=== PATIENT | female | born 1965 | race Caucasian/White ===

== ENCOUNTER 2020-04-01 | Outpatient (REF) | payer OTHER, SELFPAY | END 2020-04-01 00:01 | disposition home or self-care (01) | LOC: HO.LAB | PROVIDERS: Visit Provider Internal Medicine Endocrinology, Diabetes & Metabolism | DX: Z13.89 Encounter for screening for other disorder (principal) ==

== ENCOUNTER 2020-04-01 13:00 | Outpatient (REF) | payer OTHER, SELFPAY ==
[2020-04-01 15:22] LABS: MANUAL DIFF FLAG NO
[2020-04-01 15:32] LABS: Basophils Percent Auto 0.7 % (0-2); Eosinophils Absolute Auto 0.3 X10*3/uL (0.0-0.4); Eosinophils Percent Auto 5.2 % (0-4); Hematocrit 38.8 % (37-47); Hemoglobin 12.6 g/dl (12.0-16.0); Imm Gran Abs Auto 0.02 X10*3/uL (0.00-0.03); Imm Gran Pct Auto 0.3 % (0.0-0.4); Lymphocytes Absolute Auto 1.5 X10*3/uL (1.2-4.9); Lymphocytes Percent Auto 25.8 % (20-40); Mean Corpuscular HGB Conc 32.5 g/dl (31.0-35.0); Mean Corpuscular Hemoglobin 28.7 pg (27.0-33.0); Mean Corpuscular Volume 88.4 fL (80-98); Mean Platelet Volume 10.4 fL (9.4-12.3); Monocytes Absolute Auto 0.5 X10*3/uL (0.1-1.2); Monocytes Percent Auto 7.7 % (2-11); Neutrophils Absolute Auto 3.6 X10*3/uL (2.0-8.3); Neutrophils Percent Auto 60.3 % (45-73); Platelet Count 331 X10*3/uL (160-400); Red Blood Count 4.39 X10*6/uL (4.20-5.50); Red Cell Distribution Width 13.6 % (11.0-16.0)
[2020-04-01 15:57] LABS: Creatinine Urine 77.98 mg/dL; Microalbum/Creatinine Ratio Ur 287.2 ug/mg cr
[2020-04-01 15:59] LABS: Alanine Aminotransferase 20 U/L (0-31); Albumin Level 4.5 g/dL (3.5-5.0); Alkaline Phosphatase 35 U/L (39-117); Anion Gap 13 (12-20); Aspartate Amino Transferase 15 U/L (5-31); Bilirubin Total 0.5 mg/dL (0.0-1.0); Blood Urea Nitrogen 17 mg/dL (9-16); Calcium 9.5 mg/dL (8.4-10.2); Carbon Dioxide 25 mmol/L (22-29); Chloride 107 mmol/L (96-108); Cholesterol 152 mg/dL; Estimated Glomerular Filt Rate 49; Glucose Fasting 71 mg/dL (60-99); HDL Cholesterol 43 mg/dL; LDL Cholesterol Calculated 89 mg/dl; Potassium 4.3 mmol/l (3.3-5.1); Sodium 141 mmol/L (135-145); Total Protein 7.3 g/dL (6.5-8.0); Triglycerides 101 mg/dL
[2020-04-01 16:19] LABS: Vitamin D 25-OH Total 82.8 ng/mL (>30)
[2020-04-01 16:23] LABS: Vitamin B12 267 pg/mL (200-900)
[2020-04-02 22:26] LABS: LDL Cholesterol Direct 94 mg/dL (<100)
== END 2020-04-01 13:01 | disposition home or self-care (01) ==
LOC: HO.HAP 13:00
PROVIDERS: PCP Internal Medicine; Visit Provider Internal Medicine Endocrinology, Diabetes & Metabolism
DX: Z46.1 Encounter for fitting and adjustment of hearing aid (principal); E11.65 Type 2 diabetes mellitus with hyperglycemia
CPT/HCPCS: 36415; 80053; 80061; 82043; 82306; 82607; 83721; 85025; V5266

== ENCOUNTER → 2020-04-10 07:59 | Outpatient (BNVA) | payer OTHER, SELFPAY | PROVIDERS: PCP Internal Medicine; Referring Provider Internal Medicine; Visit Provider Internal Medicine Endocrinology, Diabetes & Metabolism | DX: Z13.89 Encounter for screening for other disorder (principal) | CPT/HCPCS: 99214 ==

== ENCOUNTER 2020-05-14 08:42 | Outpatient (REF) | payer OTHER, SELFPAY ==
[2020-05-14 09:30] LABS: Estimated Average Glucose 117 mg/dL; Hemoglobin A1c % 5.7 %
== END 2020-05-14 08:43 | disposition home or self-care (01) ==
LOC: HO.LAB 08:42
PROVIDERS: PCP Internal Medicine; Visit Provider Internal Medicine Endocrinology, Diabetes & Metabolism
DX: E11.65 Type 2 diabetes mellitus with hyperglycemia (principal); E11.42 Type 2 diabetes mellitus with diabetic polyneuropathy
CPT/HCPCS: 83036

== ENCOUNTER 2020-05-14 09:21 | Outpatient (REF) | payer OTHER, SELFPAY | END 2020-05-14 09:22 | disposition home or self-care (01) | LOC: HO.HAP 09:21 | PROVIDERS: Visit Provider Internal Medicine | DX: Z46.1 Encounter for fitting and adjustment of hearing aid (principal) | CPT/HCPCS: V5266 ==

== ENCOUNTER 2020-06-16 13:35 | Outpatient (REF) | payer OTHER, SELFPAY | END 2020-06-16 13:36 | disposition home or self-care (01) | LOC: HO.HAP 13:35 | PROVIDERS: Visit Provider Internal Medicine | DX: Z46.1 Encounter for fitting and adjustment of hearing aid (principal) | CPT/HCPCS: V5266 ==

== ENCOUNTER 2020-07-09 15:34 | Outpatient (REF) | payer OTHER, SELFPAY | END 2020-07-09 15:35 | disposition home or self-care (01) | LOC: HO.HAP 15:34 | PROVIDERS: Visit Provider Internal Medicine | DX: Z46.1 Encounter for fitting and adjustment of hearing aid (principal) | CPT/HCPCS: V5266 ==

== ENCOUNTER 2020-08-08 13:00 | Outpatient (REF) | payer OTHER, SELFPAY | END 2020-08-08 13:01 | LOC: HO.HAP 13:00 | PROVIDERS: Visit Provider Internal Medicine | DX: Z46.1 Encounter for fitting and adjustment of hearing aid (principal) | CPT/HCPCS: V5266 ==

== ENCOUNTER 2020-08-29 08:30 | Outpatient (REF) | payer OTHER, SELFPAY ==
--- NOTE | 2020-09-02 09:18 | MHC.AU.P13 ---
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 Previous Hearing Test Results: 07/17/2019 [facility] Right Ear - Normal hearing thresholds at 250-1000 Hz sloping to a moderate high frequency sensorineural hearing loss with 96% speech understanding. Left Ear - Profound rising to severe mixed hearing loss with no speech discrimination ability. Ear History: Ear Infections in Childhood: Both Ears Bothersome Tinnitus/Ringing/Noises in Ears: Left ear greater than right Medical History: Medical History: Diabetes High Blood Pressure Medical History: High Cholesterol and Anxiety Medication List: Metformin, Vitamin C, Ferrous, Buspropion, Lisinopril, Folic Acid, Lamotrigine, Atorvastatin, Fenofibrate, Omeprazole, Clonazepam, Prazosin, Tizanidine (as needed), Gabapentin (as needed), ByDureon, Admelog, Basaglar Hearing Instrument History- Right Ear: Surface Hydrologist: Phonak Model: Bolero V 50-M BTE Serial Number: [id number] Battery Size: 312 Repair Warranty: 07/28/2018 Dispensed By: [facility] Date of Fittin05/07/2016 Hearing Instrument History- Left Ear: Surface Hydrologist: Phonak Model: CROS II 312 Serial Number: [id number] Battery Size: 312 Warranty: 07/28/2018 Dispensed By: [facility] Date of Fittin05/07/2016 Otoscopy: Right Ear: Unremarkable Left Ear: Unremarkable Tympanometry: Tympanometry performed due to: History of middle ear dysfunction Right Ear: Hypercompliant Middle Ear System (Type Ad) Left Ear: Normal Middle Ear System (Type A) Hearing Evaluation: Transducer(s) Used: Insert Earphones Bone Conduction Method: Conventional Audiometry Stimuli Used: Pure Tones Right Ear: Description of Hearing: Normal hearing threshold at 250 Hz sloping to a moderately-severe mixed hearing loss Left Ear: Description of Hearing: Profound mixed hearing loss through all frequencies Speech Recognition Threshold (SRT): Method Used: Monitored Live Voice Stimuli Used: Spondee Words Right Ear: 30 dB HL Left Ear: Could Not Test Word Discrimination: Method: Recorded Lists Word Lists Used: NU-6 Right Ear: 100% at 70 dB HL Left Ear: Could Not Test QuickSIN: Unaided Quick SIN Test: 5 dB SNR Loss suggesting a mild degree of difficulty understanding speech with increasing levels of background noise. Comparison: Compared to the most recent evaluation: Thresholds have decreased bilaterally 5-10 dB Recommendations: Audiological re-evaluation in one year. Will send a reminder card. Hearing aid maintenance performed today. Hearing aid(s) reprogrammed with updated test results. Diagnosis: Primary Diagnosis: H90.3 Bilateral Sensorineural Hearing Loss Services Performed: Comprehensive Audiological Evaluation (CPT 32416) Tympanometry (CPT 64751) Signature: Provider: Victor Manuel Victor, CCC-A
== END 2020-08-29 08:31 | disposition home or self-care (01) ==
LOC: HO.SH 08:30
PROVIDERS: Visit Provider Internal Medicine
DX: H91.90 Unspecified hearing loss, unspecified ear (principal)
CPT/HCPCS: 92557; 92567; 99499

== ENCOUNTER 2020-09-04 12:27 | Outpatient (REF) | payer OTHER, SELFPAY | END 2020-09-04 12:28 | disposition home or self-care (01) | LOC: HO.HAP 12:27 | PROVIDERS: Visit Provider Internal Medicine | DX: Z46.1 Encounter for fitting and adjustment of hearing aid (principal) | CPT/HCPCS: V5266 ==

== ENCOUNTER 2020-09-09 09:39 | Outpatient (REF) | payer OTHER, SELFPAY ==
--- NOTE | ~2020-09-09 | MM_ITS ---
EXAMINATION: MM SCREENING DIGITAL BREAST TOMOSYNTHESIS, BILATERAL CLINICAL INFORMATION: Screening. Asymptomatic. The lifetime risk of breast cancer based on the Tyrer-Cuzick Model is 8%. COMPARISON: Mammography: 09/03/2019, 05/31/2018, 04/18/2017 TECHNIQUE: Digital breast tomosynthesis is performed in both the craniocaudal and mediolateral oblique views along with computer-aided detection (CAD). Synthesized 2D images are generated from the tomosynthesis. FINDINGS: The breasts are almost entirely fatty (ACR BI-RADS breast composition Category a). There are no significant masses, abnormal calcifications, or other abnormalities. Background stromal markings are stable. The axilla and skin contours are unremarkable. MM/MM tomosynthesis screening BI IMPRESSION: No mammographic evidence of malignancy. ASSESSMENT: BI-RADS 1: Negative RECOMMENDATION: Routine annual mammography screening. This patient's information was entered into a reminder system with a target due date for their next mammogram.
== END 2020-09-09 09:40 | disposition home or self-care (01) ==
LOC: HO.MAMMO 09:39
PROVIDERS: Visit Provider Internal Medicine
DX: Z12.31 Encounter for screening mammogram for malignant neoplasm of breast (principal)
CPT/HCPCS: 77063; 77067

== ENCOUNTER → 2020-09-12 08:41 | Outpatient (REF) | payer OTHER, SELFPAY ==
--- NOTE | 2020-09-12 08:47 | CA_ITS ---
Acquisition Time: 2020-09-12 09:23:50 Total Exercise Time: 00:04:45 Test Indications: CP Medications: SEE CHART Protocol: SRIDHAR Max HR: 116 BPM 70% of Pred: 165 BPM Max BP: 124/070 mmHG Max Work Load: 6.6 METS Exercise stress test with exercise 4 min 45 sec of Sridhar protocol achieving 70% MPHR, with moderate shortness of breath and 4/10 left chest burning, without arrythmia, with blunted BP response with exercise, with EKG changs meeting criteria for ischemia : downsloping STs inferiorly and V5-V6 with inferior ST depression seen at 13 seconds of recovery with gradual improvement in recovery. Chest discomfort resolved by 4 min recovery. Test reviewed with Dr Eldridge. Recommend cardiology referral. Pt instructed on light activity only. PCP office notified. Referred By: Diamond Velasquez Overread By: DESMOND RESTREPO
== END ==
LOC: HO.CARD 08:41
PROVIDERS: Visit Provider Internal Medicine
DX: R07.9 Chest pain, unspecified (principal)
CPT/HCPCS: 93016; 93017; 93018

== ENCOUNTER → 2020-09-15 07:52 | Outpatient (BNVA) | payer OTHER, SELFPAY | PROVIDERS: PCP Internal Medicine; Visit Provider Internal Medicine Endocrinology, Diabetes & Metabolism ==

== ENCOUNTER 2020-09-17 09:25 | Outpatient (REF) | payer OTHER, SELFPAY ==
[2020-09-17 10:18] LABS: Hematocrit 37.5 % (37-47); Hemoglobin 12.2 g/dl (12.0-16.0); Mean Corpuscular HGB Conc 32.5 g/dl (31.0-35.0); Mean Corpuscular Hemoglobin 29.3 pg (27.0-33.0); Mean Corpuscular Volume 89.9 fL (80-98); Mean Platelet Volume 10.5 fL (9.4-12.3); Platelet Count 326 X10*3/uL (160-400); Red Blood Count 4.17 X10*6/uL (4.20-5.50); Red Cell Distribution Width 13.6 % (11.0-16.0); White Blood Count 5.9 X10*3/uL (4.8-10.8)
[2020-09-17 10:43] LABS: Alanine Aminotransferase 20 U/L (0-31); Albumin Level 4.4 g/dL (3.5-5.0); Alkaline Phosphatase 36 U/L (39-117); Anion Gap 16 (12-20); Aspartate Amino Transferase 19 U/L (5-31); Bilirubin Total 0.9 mg/dL (0.0-1.0); Blood Urea Nitrogen 23 mg/dL (9-16); Calcium 9.4 mg/dL (8.4-10.2); Carbon Dioxide 26 mmol/L (22-29); Chloride 103 mmol/L (96-108); Cholesterol 143 mg/dL; Estimated Glomerular Filt Rate 43; Glucose Fasting 72 mg/dL (60-99); HDL Cholesterol 48 mg/dL; LDL Cholesterol Calculated 82 mg/dl; Potassium 4.7 mmol/L (3.3-5.1); Sodium 140 mmol/L (135-145); Total Protein 7.2 g/dL (6.5-8.0); Triglycerides 67 mg/dL
[2020-09-17 11:12] LABS: Vitamin B12 226 pg/mL (200-900)
[2020-09-17 11:17] LABS: Creatinine Urine 44.07 mg/dL
[2020-09-18 06:37] LABS: LDL Cholesterol Direct 83 mg/dL (<100)
== END 2020-09-17 09:26 | disposition home or self-care (01) ==
LOC: HO.LAB 09:25
PROVIDERS: PCP Internal Medicine; Visit Provider Internal Medicine Endocrinology, Diabetes & Metabolism
DX: E11.649 Type 2 diabetes mellitus with hypoglycemia without coma (principal); Z79.4 Long term (current) use of insulin
CPT/HCPCS: 36415; 80053; 80061; 82043; 82607; 83721; 85027

== ENCOUNTER 2020-09-29 07:38 | Outpatient (REF) | payer OTHER, SELFPAY ==
--- NOTE | ~2020-09-29 | XR_ITS ---
EXAMINATION: XR KNEE STANDING, BILATERAL XR KNEE, RIGHT XR KNEE, LEFT CLINICAL INFORMATION: Pain. COMPARISON: Bilateral standing and right knee radiographs dated 08/06/2019. TECHNIQUE: AP standing views of the right and left knee. Lateral and sunrise views of the right and left knee. FINDINGS: Right Knee: Total right knee arthroplasty. No acute hardware or osseous fracture. No perihardware lucency to suggest loosening or infection. No osseous erosion. No significant joint effusion. No abnormal soft tissue calcification. Left Knee: Severe medial compartment joint space narrowing with mild subchondral cirrhosis and subchondral cystic change. Tricompartmental marginal osteophytes. Findings are similar when compared to the prior radiographs. No significant joint effusion. No abnormal soft tissue calcification. XR/XR knee standing BI IMPRESSION: RIGHT KNEE: Total right knee arthroplasty without evidence of complication. LEFT KNEE: Severe medial with more moderate patellofemoral and lateral compartment osteoarthritis, unchanged.
--- NOTE | ~2020-09-29 | XR_ITS ---
EXAMINATION: XR KNEE STANDING, BILATERAL XR KNEE, RIGHT XR KNEE, LEFT CLINICAL INFORMATION: Pain. COMPARISON: Bilateral standing and right knee radiographs dated 08/06/2019. TECHNIQUE: AP standing views of the right and left knee. Lateral and sunrise views of the right and left knee. FINDINGS: Right Knee: Total right knee arthroplasty. No acute hardware or osseous fracture. No perihardware lucency to suggest loosening or infection. No osseous erosion. No significant joint effusion. No abnormal soft tissue calcification. Left Knee: Severe medial compartment joint space narrowing with mild subchondral cirrhosis and subchondral cystic change. Tricompartmental marginal osteophytes. Findings are similar when compared to the prior radiographs. No significant joint effusion. No abnormal soft tissue calcification. XR/XR knee RT 2V IMPRESSION: RIGHT KNEE: Total right knee arthroplasty without evidence of complication. LEFT KNEE: Severe medial with more moderate patellofemoral and lateral compartment osteoarthritis, unchanged.
--- NOTE | ~2020-09-29 | XR_ITS ---
EXAMINATION: XR KNEE STANDING, BILATERAL XR KNEE, RIGHT XR KNEE, LEFT CLINICAL INFORMATION: Pain. COMPARISON: Bilateral standing and right knee radiographs dated 08/06/2019. TECHNIQUE: AP standing views of the right and left knee. Lateral and sunrise views of the right and left knee. FINDINGS: Right Knee: Total right knee arthroplasty. No acute hardware or osseous fracture. No perihardware lucency to suggest loosening or infection. No osseous erosion. No significant joint effusion. No abnormal soft tissue calcification. Left Knee: Severe medial compartment joint space narrowing with mild subchondral cirrhosis and subchondral cystic change. Tricompartmental marginal osteophytes. Findings are similar when compared to the prior radiographs. No significant joint effusion. No abnormal soft tissue calcification. XR/XR knee LT 2V IMPRESSION: RIGHT KNEE: Total right knee arthroplasty without evidence of complication. LEFT KNEE: Severe medial with more moderate patellofemoral and lateral compartment osteoarthritis, unchanged.
== END 2020-09-29 07:39 | disposition home or self-care (01) ==
LOC: HO.HOSX 07:38
PROVIDERS: Visit Provider Orthopaedic Surgery
DX: M25.562 Pain in left knee (principal); M17.12 Unilateral primary osteoarthritis, left knee; E11.22 Type 2 diabetes mellitus with diabetic chronic kidney disease; I12.9 Hypertensive chronic kidney disease with stage 1 through stage 4 chronic kidney disease, or unspecified chronic kidney disease; N18.30 Chronic kidney disease, stage 3 unspecified; G47.33 Obstructive sleep apnea (adult) (pediatric); E66.01 Morbid (severe) obesity due to excess calories; Z87.891 Personal history of nicotine dependence; Z88.8 Allergy status to other drugs, medicaments and biological substances; Z96.651 Presence of right artificial knee joint
CPT/HCPCS: 73560; 73565; 99212

== ENCOUNTER 2020-10-14 09:42 | Outpatient (REF) | payer OTHER, SELFPAY | END 2020-10-14 09:43 | disposition home or self-care (01) | LOC: HO.HAP 09:42 | PROVIDERS: Visit Provider Internal Medicine | DX: Z46.1 Encounter for fitting and adjustment of hearing aid (principal) | CPT/HCPCS: V5266 ==

== ENCOUNTER → 2020-10-16 13:36 | Outpatient (BNVA) | payer OTHER, SELFPAY | PROVIDERS: PCP Internal Medicine; Visit Provider Internal Medicine | DX: R07.2 Precordial pain (principal); R94.39 Abnormal result of other cardiovascular function study; E11.8 Type 2 diabetes mellitus with unspecified complications; E66.01 Morbid (severe) obesity due to excess calories | CPT/HCPCS: 93005; 99202 ==

== ENCOUNTER → 2020-10-24 07:20 | Outpatient (REF) | payer OTHER, SELFPAY ==
--- NOTE | ~2020-10-24 | NM_ITS ---
Myocardial perfusion study Indication: Abnormal stress test with chest pain Technique: The patient was brought in for a Lexiscan perfusion study on 10/24/2020. Patient performed low-level exercise and was injected 0.4 mg of Lexiscan intravenously. Within a minute of injection, 40 mCi of sestamibi was given intravenously. Images were obtained using the SPECT gamma camera interlaced with the gating device. Images were obtained in supine position. Resting perfusion study was performed on 10/27/2020. Patient was administered 40 mCi of sestamibi intravenously at rest. Images were then obtained in supine position. Images obtained with and without CT attenuation. Total DLP 121 mGy-cm Images were processed with the software and compared side to side in short axis, horizontal long axis and vertical long axis views. Findings: The stress perfusion study showed non attenuated images show normal uptake of radiotracer in all segments of LV myocardium. Attenuation corrected images shows mildly reduced uptake in the distal anterior and apex of the LV myocardium. The gated study shows normal LV systolic function with calculated LVEF of 64%. LV cavity is normal in size. The gated study shows normal systolic wall thickening and contraction of segments. Resting study shows no change in perfusion pattern compared to stress perfusion study. Gating at rest reveals normal systolic wall motion with ejection fraction at greater than 60%. The findings are consistent with normal myocardial perfusion. NM/NM al perf SPECT rest & str Impression: 1. Myocardial perfusion imaging study shows normal myocardial perfusion 2. Gated LVEF is 64% 3. Transient ischemic dilatation not present EKG is nondiagnostic for ischemia
--- NOTE | 2020-10-24 07:23 | CA_ITS ---
Acquisition Time: 2020-10-24 08:22:52 Total Exercise Time: 00:02:00 Test Indications: R94.39 - Abnormal result of oth Medications: Protocol: LEXISCAN Max HR: 097 BPM 58% of Pred: 165 BPM Max BP: 112/072 mmHG Max Work Load: 1.0 METS Pharmacological stress test with Lexiscan injection, while sitting and kicking her legs, without anginal symptoms, with two PVCs with normotensive response to injection, with nondiagnostic EKG for ischemia. Nuclear images pending. Test reviewed with Dr Eldridge. Referred By: Curt Michelle Overread By: DESMOND RESTREPO
--- NOTE | 2020-10-24 07:23 | CA_ITS ---
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 Study Quality: Good ECG Rhythm: Sinus Conclusions: - 1. Normal LV systolic function with mild LVH with grade 1 diastolic dysfunction 2. Normal cardiac valvular Doppler 3. Normal RV systolic pressure 4. No pericardial effusion Findings Left Ventricle Normal left ventricular size and systolic function. There is mildly increased left ventricular wall thickness. The visually estimated ejection fraction is between 60-65%. Spectral Doppler is indicative of an impaired relaxation filling pattern. E/E prime ratio is <8, consistent with normal filling pressures. Evidence suggests grade I (mild) diastolic dysfunction. Right Ventricle Normal right ventricular cavity size and systolic function. Atria Both atria are normal in size. There is no evidence of interatrial shunt. Aortic Valve Normal aortic valve structure and function. There is no aortic valve stenosis. There is no aortic valve regurgitation. Mitral Valve Normal mitral valve structure and function. There is trace mitral valve regurgitation. There is no mitral valve stenosis. Pulmonic Valve The pulmonic valve was not well visualized. Tricuspid Valve Likely normal tricuspid valve structure and function. There is trace tricuspid valve regurgitation. The right ventricular systolic pressure is normal. The right ventricular systolic pressure is 18 mmHg. Normal right atrial pressure. There is no evidence of pulmonary hypertension. Great Vessels All visible segments of the aorta are normal in size. The pulmonary artery was not well visualized. Venous The inferior vena cava is normal in size and collapses greater than 50% with inspiration. Pericardium/Pleural There is no evidence of pericardial effusion. Prior Study Comparison No significant change compared to prior study dated: 04/14/2017. Measurements 2D Linear Measurements IVSd: 1.36 0.6-0.9/0.6-1.0 cm LVIDd: 4.66 3.9-5.3/4.2-5.9 cm LVIDd Index: 2.17 2.4-3.2/2.2-3.1 cm/m2 LVIDs: 2.97 2.0-3.6 cm LVPWd: 1.37 0.7-1.1 cm Ao Root: 3.20 2.1-3.5 cm LA Diam: 3.60 2.7-3.8/3.0-4.0 cm LAIDs Index: 1.67 1.5-2.3 cm/m2 LV Mass: 314.48 67-162/88-224 g LV Mass Index: 146.27 43-95/49-115 g/m2 LVOT Diam: 2.00 3.0+(-)1.3 cm 2D Systolic Function EF 4C: 55.20 >55% EF 2C: 66.30 >55% EF BiP: 59.90 >55% Mitral Valve MV Pk E: 0.77 MV PK A: 1.02 MV Decel Time: 222.00 E/A: 0.80 E'Lateral: 14.30 E'Medial: 7.16 E/E' Med: 10.80 E/E' Lat: 5.40 PHT: 65.00 MVA PHT: 3.38 Decel Leslie: 3.48 Aortic Valve AoV Pk Edmundo: 1.61 AoV Mn Edmundo: 1.08 AoV VTI: 0.40 AoV Pk Grad: 10.00 Aov Mn Grad: 6.00 BUTCH Cont.VTI: 2.06 LVOT LVOT Pk Edmundo: 1.23 LVOT Mn Edmundo: 0.86 LVOT VTI: 0.26 LVOT Pk Grad: 6.00 LVOT Mn Grad: 3.00 LVOT Diam: 2.00 LVOT Area: 3.14 Diastolic Function MV Pk E: 0.77 MV Pk A: 1.02 E/A: 0.80 E'Medial: 7.16 E/E' Med: 10.80 E' Laterial: 14.30 E/E' Lat: 5.40 Tricuspid Valve TR Pk Edmundo: 1.95 TR Pk Grad: 15.00 RA Press: 3.00 RVSP: 18.00 Great Vessels Aorta Ao Root-2D: 3.20 2.0-3.7 cm Ao Asc: 3.00 2.1-3.4 cm Pulmonary Valve PV Pk Edmundo: 1.38 Peak PV Grad: 8.00 Updated in Other Vendor System with Status of Final Joseluis Eldridge MD electronically signed on 10/24/2020 2:56:24 PM with status of Final
== END ==
LOC: HO.CARD 07:20
PROVIDERS: PCP Internal Medicine; Visit Provider Internal Medicine
DX: R94.39 Abnormal result of other cardiovascular function study (principal)
CPT/HCPCS: 78452; 93016; 93017; 93018; 93306; A9500; J0280; J2785

== ENCOUNTER 2020-11-07 14:13 | Outpatient (REF) | payer OTHER, SELFPAY ==
--- NOTE | ~2020-11-07 | US_ITS ---
EXAMINATION: US RETROPERITONEAL LIMITED (RENAL ONLY) CLINICAL INFORMATION: CKD stage 3. COMPARISON: Ultrasound abdomen 01/06/2017. MRI abdomen 12/22/2012. Renal ultrasound 09/18/2009 TECHNIQUE: Real-time imaging of the kidneys. FINDINGS: RIGHT KIDNEY: 14.3 x 5.7 x 5.9 cm (SAG x AP x TRV). The kidney is normal in size, increased echogenicity and normal contour. Renal cortical thickness is normal. No hydronephrosis. There are multiple anechoic cysts. 1. A lower pole lateral cyst measuring 0.6 x 0.6 x 0.6 mL. 2. Upper pole cyst measuring 5.7 x 4.2 x 4.9 cm. There are 3 nonobstructive echogenic calculi in midpole measuring 0.3 x 0.2, 0.2 x 0.2 and 0.3 x 0.2 cm. No caliectasis seen. There are punctate foci in the cortex with twinkle artifact. LEFT KIDNEY: 12.1 x 5.0 x 5.7 cm (SAG x AP x TRV). The kidney is normal in size, increased echogenicity and contour normal. Renal cortical thickness is normal. No hydronephrosis. There is an anechoic cyst midpole measuring 1.2 x 1.2 x 1.2 cm. There are punctate foci in the cortex with twinkle artifact. There is an echogenic stone in the lower pole measuring 0.1 x 0.1 cm. There is mild pelvic fullness of the upper pole. US/US renal BI IMPRESSION: Bilateral nonobstructive echogenic calculi. There is mild upper pole left pelvis fullness. There are bilateral anechoic renal cysts. No hydronephrosis seen.
[2020-11-07 15:32] LABS: Anion Gap 12 (12-20); Blood Urea Nitrogen 21 mg/dL (9-16); Calcium 9.4 mg/dL (8.4-10.2); Carbon Dioxide 25 mmol/L (22-29); Chloride 105 mmol/L (96-108); Estimated Glomerular Filt Rate 50; Potassium 3.7 mmol/L (3.3-5.1); Sodium 138 mmol/L (135-145)
[2020-11-07 17:18] LABS: Creatinine Urine 77.43 mg/dL; Protein/Creatinine Ratio, Ur 0.22 (<0.2); Total Protein Urine Random 17 mg/dL (<12)
== END 2020-11-07 14:14 | disposition home or self-care (01) ==
LOC: HO.US 14:13
PROVIDERS: PCP Internal Medicine; Referring Provider Internal Medicine Hypertension Specialist; Visit Provider Internal Medicine Hypertension Specialist
DX: N18.31 Chronic kidney disease, stage 3a (principal); E11.22 Type 2 diabetes mellitus with diabetic chronic kidney disease
CPT/HCPCS: 36415; 76775; 80051; 82310; 82565; 84156; 84520

== ENCOUNTER 2020-11-10 14:54 | Outpatient (REF) | payer OTHER, SELFPAY | END 2020-11-10 14:55 | disposition home or self-care (01) | LOC: HO.HAP 14:54 | PROVIDERS: Visit Provider Internal Medicine | DX: R07.2 Precordial pain (principal); R94.39 Abnormal result of other cardiovascular function study; E11.8 Type 2 diabetes mellitus with unspecified complications; E66.01 Morbid (severe) obesity due to excess calories; Z68.38 Body mass index [BMI] 38.0-38.9, adult; Z46.1 Encounter for fitting and adjustment of hearing aid | CPT/HCPCS: 99212; V5266 ==

== ENCOUNTER 2020-11-10 15:37 | Outpatient (REF) | payer OTHER, SELFPAY ==
[2020-11-10 16:38] LABS: Hematocrit 38.5 % (37-47); Hemoglobin 12.6 g/dl (12.0-16.0); Mean Corpuscular HGB Conc 32.7 g/dl (31.0-35.0); Mean Corpuscular Hemoglobin 29.2 pg (27.0-33.0); Mean Corpuscular Volume 89.1 fL (80-98); Mean Platelet Volume 10.4 fL (9.4-12.3); Platelet Count 332 X10*3/uL (160-400); Red Blood Count 4.32 X10*6/uL (4.20-5.50); Red Cell Distribution Width 13.2 % (11.0-16.0); White Blood Count 7.7 X10*3/uL (4.8-10.8)
[2020-11-10 16:47] LABS: Prothrombin Time 11.4 SEC (10.8-13.0)
[2020-11-10 16:55] LABS: Anion Gap 13 (12-20); Blood Urea Nitrogen 16 mg/dL (9-16); Calcium 9.3 mg/dL (8.4-10.2); Carbon Dioxide 25 mmol/L (22-29); Chloride 108 mmol/L (96-108); Estimated Glomerular Filt Rate 51; Glucose Random 64 mg/dL (60-115); Potassium 4.3 mmol/L (3.3-5.1); Sodium 142 mmol/L (135-145)
== END 2020-11-10 15:38 | disposition home or self-care (01) ==
LOC: HO.LAB 15:37
PROVIDERS: PCP Internal Medicine; Visit Provider Internal Medicine
DX: R07.2 Precordial pain (principal)
CPT/HCPCS: 36415; 80048; 85027; 85610; 99212

== ENCOUNTER → 2020-11-27 12:51 | Outpatient (BNVA) | payer OTHER, SELFPAY | PROVIDERS: PCP Internal Medicine; Referring Provider Internal Medicine; Visit Provider Internal Medicine | DX: R07.2 Precordial pain (principal); R94.39 Abnormal result of other cardiovascular function study; E66.01 Morbid (severe) obesity due to excess calories; E11.8 Type 2 diabetes mellitus with unspecified complications | CPT/HCPCS: 99212 ==

== ENCOUNTER 2020-12-15 08:40 | Outpatient (REF) | payer OTHER, SELFPAY | END 2020-12-15 08:41 | disposition home or self-care (01) | LOC: HO.HAP 08:40 | PROVIDERS: Visit Provider Internal Medicine | DX: Z46.1 Encounter for fitting and adjustment of hearing aid (principal); H91.90 Unspecified hearing loss, unspecified ear | CPT/HCPCS: V5266 ==

== ENCOUNTER 2021-01-06 14:26 | Outpatient (REF) | payer OTHER, SELFPAY | END 2021-01-06 14:27 | disposition home or self-care (01) | LOC: HO.HAP 14:26 | PROVIDERS: Visit Provider Internal Medicine | DX: Z46.1 Encounter for fitting and adjustment of hearing aid (principal); H90.3 Sensorineural hearing loss, bilateral | CPT/HCPCS: V5266 ==

== ENCOUNTER 2021-02-11 09:06 | Outpatient (REF) | payer OTHER, SELFPAY | END 2021-02-11 09:07 | disposition home or self-care (01) | LOC: HO.HAP 09:06 | PROVIDERS: Visit Provider Internal Medicine | DX: Z46.1 Encounter for fitting and adjustment of hearing aid (principal); H90.3 Sensorineural hearing loss, bilateral | CPT/HCPCS: V5266 ==

== ENCOUNTER → 2021-02-27 12:24 | Outpatient (BNVA) | payer OTHER, SELFPAY | PROVIDERS: PCP Internal Medicine; Visit Provider Nurse Practitioner Family ==

== ENCOUNTER 2021-02-27 13:33 | Outpatient (REF) | payer OTHER, SELFPAY ==
--- NOTE | ~2021-02-27 | US_ITS ---
EXAMINATION: US VENOUS ULTRASOUND WITH DOPPLER LOWER EXTREMITY, BILATERAL CLINICAL INFORMATION: Pain COMPARISON: Previous exams May 2018 and April 2019 TECHNIQUE: Ultrasound of the deep veins is performed from the hip to the calf with compression sonography and color and pulse Doppler assessment. Spectral analysis with color-flow imaging is performed. FINDINGS: RIGHT: There is normal venous compression and respiratory variation and augmented flow. The visualized common femoral vein, superficial femoral vein, profunda femoral vein, popliteal vein, and the trifurcation region shows no evidence of deep venous thrombosis. There is no significant popliteal fossa cyst. LEFT: There is normal venous compression and respiratory variation and augmented flow. The visualized common femoral vein, superficial femoral vein, profunda femoral vein, popliteal vein, and the trifurcation region shows no evidence of deep venous thrombosis. There is no significant popliteal fossa cyst. US/US venous duplex LE BI IMPRESSION: No DVT demonstrated in the bilateral lower extremity.
== END 2021-02-27 13:34 | disposition home or self-care (01) ==
LOC: HO.US 13:33
PROVIDERS: PCP Internal Medicine; Visit Provider Nurse Practitioner Family
DX: M79.661 Pain in right lower leg (principal); M79.662 Pain in left lower leg; R77.8 Other specified abnormalities of plasma proteins
CPT/HCPCS: 93970; 99212

== ENCOUNTER 2021-03-10 09:24 | Outpatient (REF) | payer OTHER, SELFPAY | END 2021-03-10 09:25 | disposition home or self-care (01) | LOC: HO.HAP 09:24 | PROVIDERS: Visit Provider Internal Medicine | DX: Z46.1 Encounter for fitting and adjustment of hearing aid (principal); I73.9 Peripheral vascular disease, unspecified; H90.3 Sensorineural hearing loss, bilateral | CPT/HCPCS: 99202; V5266 ==

== ENCOUNTER 2021-04-03 09:29 | Outpatient (REF) | payer OTHER, SELFPAY | END 2021-04-03 09:30 | disposition home or self-care (01) | LOC: CF 09:29 | PROVIDERS: Visit Provider Surgery Vascular Surgery | DX: Z13.89 Encounter for screening for other disorder (principal) ==

== ENCOUNTER 2021-04-10 14:13 | Outpatient (REF) | payer OTHER, SELFPAY | END 2021-04-10 14:14 | disposition home or self-care (01) | LOC: HO.HAP 14:13 | PROVIDERS: Visit Provider Internal Medicine | DX: Z46.1 Encounter for fitting and adjustment of hearing aid (principal); H90.3 Sensorineural hearing loss, bilateral | CPT/HCPCS: V5266 ==

== ENCOUNTER 2021-04-22 08:24 | Outpatient (REF) | payer OTHER, SELFPAY ==
[2021-04-22 09:44] LABS: Appearance Urine HAZY; Color Urine YELLOW; Glucose Urine UA NEG (NEG); Leukocyte Esterase Urine TRACE (NEG); Nitrite Urine POS (NEG); Urine Blood NEG (NEG); Urine Ketones NEG (NEG); Urine Protein TRACE MG/DL (NEG-TRACE)
[2021-04-22 09:56] LABS: Bacteria Urine 3+ /LPF; RBC Urine 0-2 /HPF (0); Squamous Epithelial Cell Urine 2+ /LPF
[2021-04-22 10:18] LABS: Alanine Aminotransferase 29 U/L (0-31); Albumin Level 4.6 g/dL (3.5-5.0); Alkaline Phosphatase 37 U/L (39-117); Anion Gap 14 (12-20); Aspartate Amino Transferase 21 U/L (5-31); Bilirubin Total 0.7 mg/dL (0.0-1.0); Blood Urea Nitrogen 18 mg/dL (9-16); Calcium 9.7 mg/dL (8.4-10.2); Carbon Dioxide 24 mmol/L (22-29); Chloride 106 mmol/L (96-108); Creatinine Urine 147.34 mg/dL; Estimated Glomerular Filt Rate 42; Glucose Fasting 92 mg/dL (60-99); Potassium 4.3 mmol/L (3.3-5.1); Protein/Creatinine Ratio, Ur 0.14 (<0.2); Sodium 140 mmol/L (135-145); Total Protein 7.7 g/dL (6.5-8.0); Total Protein Urine Random 20 mg/dL (<12)
[2021-04-23 09:49] LABS: HBS Num1 0.69 mIU/mL (0-7.99); HBsAGNum1 0.29 S/CO (0.00-0.99); Hepatitis B Surface Antigen Negative (Negative); ~Hepatitis B Surface Antibody NONREACTIVE (Nonreactive); ~Hepatitis C Antibody Nonreactive (Nonreactive)
[2021-04-23 13:40] LABS: Anti Glomerular Basement Memb <1.0 AI; Myeloperoxidase Antibody <1.0 AI; Proteinase 3 PR3 Antibodies <1.0 AI
[2021-04-23 14:06] LABS: Prot Elec - Albumin 4.4 g/dL (3.8-4.8); Prot Elec - Alpha1 0.3 g/dL (0.2-0.3); Prot Elec - Alpha2 0.7 g/dL (0.5-0.9); Prot Elec - Beta 1 0.5 g/dL (0.4-0.6); Prot Elec - Beta 2 0.4 g/dL (0.2-0.5); Prot Elec - Gamma 1.1 g/dL (0.8-1.7); Prot Elec - Total Protein 7.4 g/dL (6.1-8.1)
[2021-04-23 15:07] LABS: Complement C3 156 mg/dL (83-193)
== END 2021-04-22 08:25 | disposition home or self-care (01) ==
LOC: HO.LAB 08:24
PROVIDERS: Nurse Practitioner Gerontology; PCP Internal Medicine; Visit Provider Internal Medicine Hypertension Specialist
DX: E11.649 Type 2 diabetes mellitus with hypoglycemia without coma (principal); N18.31 Chronic kidney disease, stage 3a; Z79.4 Long term (current) use of insulin
CPT/HCPCS: 36415; 80053; 81001; 83520; 84156; 84165; 86021; 86160; 86706; 86803; 87340

== ENCOUNTER 2021-05-12 10:33 | Outpatient (REF) | payer OTHER, SELFPAY ==
--- NOTE | ~2021-05-12 | US_ITS ---
EXAMINATION: COLOR-FLOW DUPLEX IMAGING OF THE BILATERAL LOWER EXTREMITY ARTERIAL SYSTEM. VELOCITY MEASUREMENTS THROUGHOUT THE FEMORAL ARTERIES WITH ANKLE-BRACHIAL PERIPHERAL ARTERIAL TESTING. Interventional Radiologist: Will Johnson M.D., F.S.I.R., F.A.C.R. CLINICAL INFORMATION: This is a 56-year-old female with peripheral vascular disease. Hypertension. RIGHT FEMORAL RUNOFF VELOCITIES: The right common femoral artery measures 85 cm/s and triphasic. The right profunda femoral artery is 50 cm/s and is triphasic. Right proximal superficial femoral artery measures 89 cm/s and triphasic. Mid superficial femoral artery is 103 cm/s and triphasic. Distal right superficial femoral artery measures 106 cm/s and is triphasic. Right popliteal velocity measures 79 cm/s and is triphasic. The posterior tibial artery velocity measures 84 cm/s and was triphasic. The right ankle-brachial index is 1.40. The waveforms appear within normal limits. LEFT FEMORAL RUNOFF VELOCITIES: The left common femoral artery measures 129 cm/s and triphasic. The left profunda femoral artery is 76 cm/s and is monophasic. Left proximal superficial femoral artery measures 87 cm/s and triphasic. Mid superficial femoral artery is 117 cm/s and triphasic. Distal left superficial femoral artery measures 94 cm/s and is triphasic. Left popliteal velocity measures 68 cm/s and is triphasic. The posterior tibial artery velocity measures 75 cm/s and was triphasic. The left ankle-brachial index is 1.29. The waveforms appear within normal limits. US/US MARIA DOLORES complete IMPRESSION: 1. Normal bilateral peripheral arterial testing without evidence of hemodynamically significant stenosis.
--- NOTE | ~2021-05-12 | US_ITS ---
EXAMINATION: COLOR-FLOW DUPLEX IMAGING OF THE BILATERAL LOWER EXTREMITY ARTERIAL SYSTEM. VELOCITY MEASUREMENTS THROUGHOUT THE FEMORAL ARTERIES WITH ANKLE-BRACHIAL PERIPHERAL ARTERIAL TESTING. Interventional Radiologist: Will Johnson M.D., F.S.I.R., F.A.C.R. CLINICAL INFORMATION: This is a 56-year-old female with peripheral vascular disease. Hypertension. RIGHT FEMORAL RUNOFF VELOCITIES: The right common femoral artery measures 85 cm/s and triphasic. The right profunda femoral artery is 50 cm/s and is triphasic. Right proximal superficial femoral artery measures 89 cm/s and triphasic. Mid superficial femoral artery is 103 cm/s and triphasic. Distal right superficial femoral artery measures 106 cm/s and is triphasic. Right popliteal velocity measures 79 cm/s and is triphasic. The posterior tibial artery velocity measures 84 cm/s and was triphasic. The right ankle-brachial index is 1.40. The waveforms appear within normal limits. LEFT FEMORAL RUNOFF VELOCITIES: The left common femoral artery measures 129 cm/s and triphasic. The left profunda femoral artery is 76 cm/s and is monophasic. Left proximal superficial femoral artery measures 87 cm/s and triphasic. Mid superficial femoral artery is 117 cm/s and triphasic. Distal left superficial femoral artery measures 94 cm/s and is triphasic. Left popliteal velocity measures 68 cm/s and is triphasic. The posterior tibial artery velocity measures 75 cm/s and was triphasic. The left ankle-brachial index is 1.29. The waveforms appear within normal limits. US/US arterial duplex LE BI IMPRESSION: 1. Normal bilateral peripheral arterial testing without evidence of hemodynamically significant stenosis.
== END 2021-05-12 10:34 | disposition home or self-care (01) ==
LOC: HO.US 10:33
PROVIDERS: PCP Internal Medicine; Visit Provider Surgery Vascular Surgery
DX: I73.9 Peripheral vascular disease, unspecified (principal)
CPT/HCPCS: 93923; 93925

== ENCOUNTER 2021-05-12 11:47 | Outpatient (REF) | payer OTHER, SELFPAY | END 2021-05-12 11:48 | disposition home or self-care (01) | LOC: HO.HAP 11:47 | PROVIDERS: Visit Provider Internal Medicine | DX: Z46.1 Encounter for fitting and adjustment of hearing aid (principal); H90.3 Sensorineural hearing loss, bilateral | CPT/HCPCS: V5266 ==

== ENCOUNTER 2021-05-27 12:59 | Outpatient (REF) | payer OTHER, SELFPAY ==
[2021-05-27 13:09] LABS: MANUAL DIFF FLAG NO
[2021-05-27 13:22] LABS: Basophils Absolute Auto 0.1 X10*3/uL (0.0-0.2); Basophils Percent Auto 0.7 % (0-2); Eosinophils Absolute Auto 0.4 X10*3/uL (0.0-0.4); Hematocrit 38.7 % (37.0-47.0); Hemoglobin 12.7 g/dl (12.0-16.0); Imm Gran Abs Auto 0.03 X10*3/uL (0.00-0.03); Imm Gran Pct Auto 0.4 % (0.0-0.4); Lymphocytes Absolute Auto 1.7 X10*3/uL (1.2-4.9); Lymphocytes Percent Auto 25.3 % (20-40); Mean Corpuscular HGB Conc 32.8 g/dl (31.0-35.0); Mean Corpuscular Hemoglobin 29.2 pg (27.0-33.0); Mean Platelet Volume 10.1 fL (9.4-12.3); Monocytes Absolute Auto 0.6 X10*3/uL (0.1-1.2); Monocytes Percent Auto 9.4 % (2-11); Neutrophils Percent Auto 58.2 % (45-73); Platelet Count 321 X10*3/uL (160-400); Red Blood Count 4.35 X10*6/uL (4.20-5.50); Red Cell Distribution Width 13.2 % (11.0-16.0); White Blood Count 6.8 X10*3/uL (4.8-10.8)
[2021-05-27 13:50] LABS: Alanine Aminotransferase 23 U/L (0-31); Albumin Level 4.3 g/dL (3.5-5.0); Alkaline Phosphatase 38 U/L (39-117); Anion Gap 13 (12-20); Aspartate Amino Transferase 19 U/L (5-31); Bilirubin Total 0.4 mg/dL (0.0-1.0); Blood Urea Nitrogen 23 mg/dL (9-16); Calcium 9.5 mg/dL (8.4-10.2); Carbon Dioxide 25 mmol/L (22-29); Chloride 108 mmol/L (96-108); Cholesterol 163 mg/dL; Estimated Glomerular Filt Rate 38; Glucose Fasting 84 mg/dL (60-99); HDL Cholesterol 43 mg/dL; LDL Cholesterol Calculated 91 mg/dl; Potassium 3.9 mmol/L (3.3-5.1); Sodium 142 mmol/L (135-145); Total Protein 7.2 g/dL (6.5-8.0); Triglycerides 145 mg/dL
== END 2021-05-27 13:00 | disposition home or self-care (01) ==
LOC: HO.LAB 12:59
PROVIDERS: PCP Internal Medicine; Visit Provider Nurse Practitioner Psychiatric/Mental Health
DX: E11.649 Type 2 diabetes mellitus with hypoglycemia without coma (principal); E11.21 Type 2 diabetes mellitus with diabetic nephropathy; E11.42 Type 2 diabetes mellitus with diabetic polyneuropathy; I10 Essential (primary) hypertension; E66.01 Morbid (severe) obesity due to excess calories; Z68.37 Body mass index [BMI] 37.0-37.9, adult; E78.5 Hyperlipidemia, unspecified; Z79.899 Other long term (current) drug therapy; Z79.4 Long term (current) use of insulin; Z87.891 Personal history of nicotine dependence
CPT/HCPCS: 36415; 80053; 80061; 82947; 85025; 99212

== ENCOUNTER 2021-06-11 13:54 | Outpatient (REF) | payer OTHER, SELFPAY | END 2021-06-11 13:55 | disposition home or self-care (01) | LOC: HO.HAP 13:54 | PROVIDERS: Visit Provider Internal Medicine | DX: M79.662 Pain in left lower leg (principal); M79.661 Pain in right lower leg; E11.51 Type 2 diabetes mellitus with diabetic peripheral angiopathy without gangrene; Z96.651 Presence of right artificial knee joint; Z87.891 Personal history of nicotine dependence | CPT/HCPCS: 99212; V5266 ==

== ENCOUNTER 2021-07-21 10:47 | Outpatient (REF) | payer OTHER, SELFPAY | END 2021-07-21 10:48 | disposition home or self-care (01) | LOC: HO.HAP 10:47 | PROVIDERS: Visit Provider Internal Medicine | DX: Z46.1 Encounter for fitting and adjustment of hearing aid (principal); H90.3 Sensorineural hearing loss, bilateral | CPT/HCPCS: V5266 ==

== ENCOUNTER 2021-08-19 08:58 | Outpatient (REF) | payer OTHER, SELFPAY ==
[2021-08-19 10:49] LABS: Anion Gap 13 (12-20); Blood Urea Nitrogen 18 mg/dL (9-16); Calcium 9.4 mg/dL (8.4-10.2); Carbon Dioxide 25 mmol/L (22-29); Chloride 107 mmol/L (96-108); Estimated Glomerular Filt Rate 44; Glucose Random 129 mg/dL (60-115); Sodium 141 mmol/L (135-145)
== END 2021-08-19 08:59 | disposition home or self-care (01) ==
LOC: HO.LAB 08:58
PROVIDERS: PCP Internal Medicine; Visit Provider Internal Medicine Hypertension Specialist
DX: E11.22 Type 2 diabetes mellitus with diabetic chronic kidney disease (principal); N18.9 Chronic kidney disease, unspecified
CPT/HCPCS: 36415; 80048

== ENCOUNTER 2021-08-19 09:24 | Outpatient (REF) | payer OTHER, SELFPAY | END 2021-08-19 09:25 | disposition home or self-care (01) | LOC: HO.HAP 09:24 | PROVIDERS: Visit Provider Internal Medicine | DX: Z46.1 Encounter for fitting and adjustment of hearing aid (principal); H90.3 Sensorineural hearing loss, bilateral | CPT/HCPCS: V5266 ==

== ENCOUNTER 2021-09-11 13:37 | Outpatient (REF) | payer OTHER, SELFPAY | END 2021-09-11 13:38 | disposition home or self-care (01) | LOC: HO.HAP 13:37 | PROVIDERS: Visit Provider Internal Medicine | DX: Z46.1 Encounter for fitting and adjustment of hearing aid (principal); H90.3 Sensorineural hearing loss, bilateral | CPT/HCPCS: V5266 ==

== ENCOUNTER 2021-10-16 10:53 | Outpatient (REF) | payer OTHER, SELFPAY | END 2021-10-16 10:54 | disposition home or self-care (01) | LOC: HO.HAP 10:53 | PROVIDERS: Visit Provider Internal Medicine | DX: Z46.1 Encounter for fitting and adjustment of hearing aid (principal); H90.3 Sensorineural hearing loss, bilateral | CPT/HCPCS: V5266 ==

== ENCOUNTER 2021-10-23 09:28 | Outpatient (REF) | payer OTHER, SELFPAY ==
--- NOTE | ~2021-10-23 | MM_ITS ---
EXAMINATION: MM SCREENING DIGITAL BREAST TOMOSYNTHESIS, BILATERAL CLINICAL INFORMATION: Screening. Asymptomatic. The lifetime risk of breast cancer based on the Tyrer-Cuzick Model is 8%. COMPARISON: Mammography: 09/09/2020, 09/03/2019, 05/31/2018 TECHNIQUE: Digital breast tomosynthesis is performed in both the craniocaudal and mediolateral oblique views along with computer-aided detection (CAD). Synthesized 2D images are generated from the tomosynthesis. FINDINGS: The breasts are almost entirely fatty (ACR BI-RADS breast composition Category a). There are no significant masses, abnormal calcifications, or other abnormalities. The axilla and skin contours are unremarkable. MM/MM tomosynthesis screening BI IMPRESSION: No mammographic evidence of malignancy. ASSESSMENT: BI-RADS 1: Negative RECOMMENDATION: Routine annual mammography screening. This patient's information was entered into a reminder system with a target due date for their next mammogram.
== END 2021-10-23 09:29 | disposition home or self-care (01) ==
LOC: HO.MAMMO 09:28
PROVIDERS: PCP Internal Medicine; Visit Provider Internal Medicine
DX: Z12.31 Encounter for screening mammogram for malignant neoplasm of breast (principal)
CPT/HCPCS: 77063; 77067

== ENCOUNTER 2021-11-19 10:46 | Outpatient (REF) | payer OTHER, SELFPAY | END 2021-11-19 10:47 | disposition home or self-care (01) | LOC: HO.HAP 10:46 | PROVIDERS: Visit Provider Internal Medicine | DX: Z46.1 Encounter for fitting and adjustment of hearing aid (principal); H90.3 Sensorineural hearing loss, bilateral | CPT/HCPCS: V5266 ==

== ENCOUNTER 2021-12-21 10:11 | Outpatient (REF) | payer OTHER, SELFPAY | END 2021-12-21 10:12 | disposition home or self-care (01) | LOC: HO.HAP 10:11 | PROVIDERS: Visit Provider Internal Medicine | DX: Z46.1 Encounter for fitting and adjustment of hearing aid (principal); H90.3 Sensorineural hearing loss, bilateral | CPT/HCPCS: V5266 ==

== ENCOUNTER 2022-01-20 11:12 | Outpatient (REF) | payer OTHER, SELFPAY ==
--- NOTE | 2022-02-02 08:21 | MHC.AU.AHA ---
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 Tona has a history of asymmetric hearing loss with no functional hearing ability for the left ear and uses a Bi-CROS hearing aid system. She also is diagnosed with Diabetes which may increase hearing loss. Previous Hearing Test Results: 08/29/2020 [facility] Right ear - Normal hearing level at 250 Hz, sloping to a moderately-severe high frequency sensorineural hearing loss with 100% speech understanding at 70 dB HL Left ear - Profound mixed hearing loss 250-8000 Hz with no speech discrimination ability. Ear History: Ear Infections in Childhood: Both Ears Medical History: Medical History: Diabetes, High Blood Pressure, High Cholesterol and Anxiety Medication List: Metformin, Vitamin C, Ferrous, Buspropion, Lisinopril, Folic Acid, Lamotrigine, Atorvastatin, Fenofibrate, Omeprazole, Clonazepam, Prazosin, Tizanidine (as needed), Gabapentin (as needed), ByDureon, Admelog, Basaglar Hearing Instrument History- Right Ear: River Pilot: Phonak Model: Bolero V 50-M BTE Serial Number: [id number] Battery Size: 312 Repair Warranty: 07/28/2018 Dispensed By: [facility] Date of Fittin05/07/2016 Hearing Instrument History- Left Ear: River Pilot: Phonak Model: CROS II 312 Serial Number: [id number] Battery Size: 312 Warranty: 07/28/2018 Dispensed By: [facility] Date of Fittin05/07/2016 Otoscopy: Right Ear: Unremarkable Left Ear: Unremarkable Tympanometry: Not performed at today's visit Hearing Evaluation: Transducer(s) Used: Insert Earphones Bone Conduction Method: Conventional Audiometry Stimuli Used: Pure Tones Right Ear: Description of Hearing: Normal hearing threshold at 250 Hz, sloping to a moderately-severe high frequency sensorineural hearing loss. Left Ear: Description of Hearing: Profound mixed hearing loss 250-8000 Hz. Speech Recognition Threshold (SRT): Method Used: Monitored Live Voice Stimuli Used: Spondee Words Right Ear: 35 dB HL Left Ear: Could Not Test Word Discrimination: Method: Recorded Lists Word Lists Used: NU-6 Right Ear: 100% at 75 dB HL Left Ear: Could Not Test Most Comfortable Level (MCL): Right Ear: Left Ear: Comparison: Compared to most recent evaluation: Overall thresholds have decreased 5-10 dB, left ear greater than right Recommendations: Hearing aid maintenance performed today. Hearing aid(s) reprogrammed with updated test results. Audiological re-evaluation in one year. Will send a reminder card. Diagnosis: Primary Diagnosis: H90.6 Mixed Hearing Loss, Bilateral Services Performed: Comprehensive Audiological Evaluation (CPT 31424) Signature: Provider: Victor Manuel Victor, CCC-A
--- NOTE | 2022-02-02 08:24 | MHC.AU.AHA ---
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 Tona has a history of asymmetric hearing loss with no functional hearing ability for the left ear and uses a Bi-CROS hearing aid system. She also is diagnosed with Diabetes which may increase hearing loss. Previous Hearing Test Results: 08/29/2020 [facility] Right ear - Normal hearing level at 250 Hz, sloping to a moderately-severe high frequency sensorineural hearing loss with 100% speech understanding at 70 dB HL Left ear - Profound mixed hearing loss 250-8000 Hz with no speech discrimination ability. Ear History: Ear Infections in Childhood: Both Ears Medical History: Medical History: Diabetes, High Blood Pressure, High Cholesterol and Anxiety Medication List: Metformin, Vitamin C, Ferrous, Buspropion, Lisinopril, Folic Acid, Lamotrigine, Atorvastatin, Fenofibrate, Omeprazole, Clonazepam, Prazosin, Tizanidine (as needed), Gabapentin (as needed), ByDureon, Admelog, Basaglar Hearing Instrument History- Right Ear: Professional Architect: Phonak Model: Bolero V 50-M BTE Serial Number: [id number] Battery Size: 312 Repair Warranty: 07/28/2018 Dispensed By: [facility] Date of Fittin05/07/2016 Hearing Instrument History- Left Ear: Professional Architect: Phonak Model: CROS II 312 Serial Number: [id number] Battery Size: 312 Warranty: 07/28/2018 Dispensed By: [facility] Date of Fittin05/07/2016 Otoscopy: Right Ear: Unremarkable Left Ear: Unremarkable Tympanometry: Not performed at today's visit Hearing Evaluation: Transducer(s) Used: Insert Earphones Bone Conduction Method: Conventional Audiometry Stimuli Used: Pure Tones Right Ear: Description of Hearing: Normal hearing threshold at 250 Hz, sloping to a moderately-severe high frequency sensorineural hearing loss. Left Ear: Description of Hearing: Profound mixed hearing loss 250-8000 Hz. Speech Recognition Threshold (SRT): Method Used: Monitored Live Voice Stimuli Used: Spondee Words Right Ear: 35 dB HL Left Ear: Could Not Test Word Discrimination: Method: Recorded Lists Word Lists Used: NU-6 Right Ear: 100% at 75 dB HL Left Ear: Could Not Test Comparison: Compared to most recent evaluation: Overall thresholds have decreased 5-10 dB, left ear greater than right Recommendations: Hearing aid maintenance performed today. Hearing aid(s) reprogrammed with updated test results. Audiological re-evaluation in one year. Will send a reminder card. Diagnosis: Primary Diagnosis: H90.6 Mixed Hearing Loss, Bilateral Services Performed: Comprehensive Audiological Evaluation (CPT 70023) Signature: Provider: Victor Manuel Victor, MIKE-A
== END 2022-01-20 11:13 | disposition home or self-care (01) ==
LOC: HO.SH 11:12
PROVIDERS: Visit Provider Internal Medicine
DX: Z01.118 Encounter for examination of ears and hearing with other abnormal findings (principal); Z46.1 Encounter for fitting and adjustment of hearing aid; H90.6 Mixed conductive and sensorineural hearing loss, bilateral
CPT/HCPCS: 92557; V5266

== ENCOUNTER 2022-02-23 13:59 | Outpatient (REF) | payer OTHER, SELFPAY | END 2022-02-23 14:00 | disposition home or self-care (01) | LOC: HO.HAP 13:59 | PROVIDERS: Visit Provider Internal Medicine | DX: Z46.1 Encounter for fitting and adjustment of hearing aid (principal) | CPT/HCPCS: V5266 ==

== ENCOUNTER 2022-03-12 08:57 | Outpatient (REF) | payer OTHER, SELFPAY ==
--- NOTE | ~2022-03-12 | XR_ITS ---
EXAMINATION: BILATERAL KNEE AP STANDING AND 2 VIEWS OF EACH KNEE CLINICAL INFORMATION: Pain. COMPARISON: Bilateral AP knee standing and 2 views of each knee 09/29/2021. TECHNIQUE: AP bilateral knee standing. 2 views of each knee. FINDINGS: AP BILATERAL KNEE: There is a total right knee prosthesis in satisfactory alignment. There is moderate loss of medial and mild loss of lateral compartment joint space of the left knee. No bony erosive changes. There is periarticular spurring of the left knee lateral compartment. No soft tissue calcification. LEFT KNEE: There is mild loss of patellofemoral compartment joint space. No bony erosive changes or loose body is seen. There is minimal superior patellar spurring and minimal suprapatellar joint effusion. RIGHT KNEE: There is a total right knee arthroplasty with prosthetic components in satisfactory alignment. No prosthetic loosening is seen. There is no joint effusion. The soft tissues are normal. XR/XR knee RT 2V IMPRESSION: Moderate medial and mild lateral compartment degenerative arthritic changes of the left knee. Minimal suprapatellar joint effusion and superior patellar spurring. Similar findings are seen on the previous exam 09/29/2020. Total right knee arthroplasty right knee in satisfactory alignment.
--- NOTE | ~2022-03-12 | XR_ITS ---
EXAMINATION: BILATERAL KNEE AP STANDING AND 2 VIEWS OF EACH KNEE CLINICAL INFORMATION: Pain. COMPARISON: Bilateral AP knee standing and 2 views of each knee 09/29/2021. TECHNIQUE: AP bilateral knee standing. 2 views of each knee. FINDINGS: AP BILATERAL KNEE: There is a total right knee prosthesis in satisfactory alignment. There is moderate loss of medial and mild loss of lateral compartment joint space of the left knee. No bony erosive changes. There is periarticular spurring of the left knee lateral compartment. No soft tissue calcification. LEFT KNEE: There is mild loss of patellofemoral compartment joint space. No bony erosive changes or loose body is seen. There is minimal superior patellar spurring and minimal suprapatellar joint effusion. RIGHT KNEE: There is a total right knee arthroplasty with prosthetic components in satisfactory alignment. No prosthetic loosening is seen. There is no joint effusion. The soft tissues are normal. XR/XR knee standing BI IMPRESSION: Moderate medial and mild lateral compartment degenerative arthritic changes of the left knee. Minimal suprapatellar joint effusion and superior patellar spurring. Similar findings are seen on the previous exam 09/29/2020. Total right knee arthroplasty right knee in satisfactory alignment.
--- NOTE | ~2022-03-12 | XR_ITS ---
EXAMINATION: BILATERAL KNEE AP STANDING AND 2 VIEWS OF EACH KNEE CLINICAL INFORMATION: Pain. COMPARISON: Bilateral AP knee standing and 2 views of each knee 09/29/2021. TECHNIQUE: AP bilateral knee standing. 2 views of each knee. FINDINGS: AP BILATERAL KNEE: There is a total right knee prosthesis in satisfactory alignment. There is moderate loss of medial and mild loss of lateral compartment joint space of the left knee. No bony erosive changes. There is periarticular spurring of the left knee lateral compartment. No soft tissue calcification. LEFT KNEE: There is mild loss of patellofemoral compartment joint space. No bony erosive changes or loose body is seen. There is minimal superior patellar spurring and minimal suprapatellar joint effusion. RIGHT KNEE: There is a total right knee arthroplasty with prosthetic components in satisfactory alignment. No prosthetic loosening is seen. There is no joint effusion. The soft tissues are normal. XR/XR knee LT 2V IMPRESSION: Moderate medial and mild lateral compartment degenerative arthritic changes of the left knee. Minimal suprapatellar joint effusion and superior patellar spurring. Similar findings are seen on the previous exam 09/29/2020. Total right knee arthroplasty right knee in satisfactory alignment.
== END 2022-03-12 08:58 | disposition home or self-care (01) ==
LOC: HO.HOSX 08:57
PROVIDERS: Visit Provider Orthopaedic Surgery
DX: M17.12 Unilateral primary osteoarthritis, left knee (principal); M25.561 Pain in right knee; E11.8 Type 2 diabetes mellitus with unspecified complications
CPT/HCPCS: 73560; 73565; 99212

== ENCOUNTER 2022-03-26 08:07 | Outpatient (REF) | payer OTHER, SELFPAY | END 2022-03-26 08:08 | disposition home or self-care (01) | LOC: HO.HAP 08:07 | PROVIDERS: Visit Provider Internal Medicine | DX: Z46.1 Encounter for fitting and adjustment of hearing aid (principal); H90.6 Mixed conductive and sensorineural hearing loss, bilateral | CPT/HCPCS: V5266 ==

== ENCOUNTER 2022-04-21 09:30 | Outpatient (REF) | payer OTHER, SELFPAY ==
[2022-04-21 11:54] LABS: Basophils Absolute Auto 0.1 X10*3/uL (0.0-0.2); Basophils Percent Auto 0.9 % (0-2); Eosinophils Absolute Auto 0.5 X10*3/uL (0.0-0.4); Eosinophils Percent Auto 6.2 % (0-4); Hemoglobin 13.1 g/dl (12.0-16.0); Imm Gran Abs Auto 0.05 X10*3/uL (0.00-0.03); Imm Gran Pct Auto 0.7 % (0.0-0.4); Lymphocytes Absolute Auto 1.3 X10*3/uL (1.2-4.9); Lymphocytes Percent Auto 17.5 % (20-40); MANUAL DIFF FLAG SCAN; Mean Corpuscular Hemoglobin 28.2 pg (27.0-33.0); Mean Corpuscular Volume 88.2 fL (80.0-98.0); Mean Platelet Volume 11.4 fL (9.4-12.3); Monocytes Absolute Auto 0.6 X10*3/uL (0.1-1.2); Monocytes Percent Auto 8.1 % (2-11); Neutrophils Absolute Auto 4.9 x10*3/uL (2.0-8.3); Neutrophils Percent Auto 66.6 % (45-73); PLT CLUMP 1; Red Blood Count 4.65 X10*6/uL (4.20-5.50); Red Cell Distribution Width 13.4 % (11.0-16.0); SCAN SMEAR FLAG 1
[2022-04-21 12:06] LABS: Estimated Average Glucose 117 mg/dL; Hemoglobin A1c % 5.7 %
[2022-04-21 12:17] LABS: Anion Gap 20 (12-20); Blood Urea Nitrogen 21 mg/dL (9-16); Calcium 9.1 mg/dL (8.4-10.2); Carbon Dioxide 18 mmol/L (22-29); Chloride 108 mmol/L (96-108); Estimated Glomerular Filt Rate 41; Glucose Random 148 mg/dL (60-115); Potassium 4.5 mmol/L (3.3-5.1); Sodium 141 mmol/L (135-145)
[2022-04-21 12:23] LABS: Platelet Count 162 X10*3/uL (160-400); SLIDE REVIEW VERIFIED; White Blood Count 7.4 X10*3/uL (4.8-10.8)
== END 2022-04-21 09:31 | disposition home or self-care (01) ==
LOC: HO.HAP 09:30
PROVIDERS: Orthopaedic Surgery; Visit Provider Internal Medicine
DX: Z46.1 Encounter for fitting and adjustment of hearing aid (principal); H90.6 Mixed conductive and sensorineural hearing loss, bilateral
CPT/HCPCS: 36415; 80048; 83036; 85025; V5266

== ENCOUNTER → 2022-04-28 13:00 | Outpatient (BNVA) | payer OTHER, SELFPAY | PROVIDERS: PCP Internal Medicine; Referring Provider Internal Medicine; Visit Provider Internal Medicine | DX: Z01.810 Encounter for preprocedural cardiovascular examination (principal); E66.01 Morbid (severe) obesity due to excess calories; E11.8 Type 2 diabetes mellitus with unspecified complications; E78.5 Hyperlipidemia, unspecified; Z68.37 Body mass index [BMI] 37.0-37.9, adult | CPT/HCPCS: 99212 ==

== ENCOUNTER 2022-05-24 | Outpatient (REF) | payer OTHER, SELFPAY | END 2022-05-24 00:01 | disposition home or self-care (01) | LOC: CF | PROVIDERS: Visit Provider Physician Assistant | DX: Z01.818 Encounter for other preprocedural examination (principal); M17.12 Unilateral primary osteoarthritis, left knee | CPT/HCPCS: 99212 ==

== ENCOUNTER 2022-05-24 09:56 | Outpatient (REF) | payer OTHER, SELFPAY | END 2022-05-24 09:57 | disposition home or self-care (01) | LOC: HO.HAP 09:56 | PROVIDERS: Visit Provider Internal Medicine | DX: Z46.1 Encounter for fitting and adjustment of hearing aid (principal); H90.3 Sensorineural hearing loss, bilateral | CPT/HCPCS: 99212; V5266 ==

== ENCOUNTER 2022-05-25 07:27 | Inpatient (IN) | payer OTHER, SELFPAY ==
--- NOTE | 2022-04-27 13:31 | ECG_ITS ---
Test Reason : PRE OP Blood Pressure : / mmHG Vent. Rate : 069 BPM Atrial Rate : 069 BPM P-R Int : 200 ms QRS Dur : 114 ms QT Int : 412 ms P-R-T Axes : 008 049 097 degrees QTc Int : 441 ms Normal sinus rhythm Intra-ventricular conduction delay Nonspecific ST abnormality ST & T wave abnormality, consider lateral ischemia Abnormal ECG When compared with ECG of 10-APR-2019 10:08, No significant changes seen Referred By: Cynthia Mosley Electronically Signed By:MATT RUIZ MD
[2022-05-12 12:08] VITALS: BP 113/63; PULSE 77; RESP 20; O2SAT 95; BMI 38.2
--- NOTE | 2022-05-12 12:28 | HO.ANESPROP2 ---
Documented by User: Stephanie Trevino NP 05/24/22 08:34 HPI - Anesthesia Eval Consult details Narrative: 57yo F for Left Knee Replacement Total PCP cleared Cardiac cleared [employer] hearing aides s/p right TKA 2019 - no anesthesia issues PMFSH Active Problems Active Problems: All Active Problems (Updated 05/12/22 @ 12:19 by Cindy Monteiro RN) Osteoarthritis (Acute) Hearing impairment (Acute) Obesity (Acute) Colonoscopy refused (Acute) Annual physical exam (Acute) Type 2 diabetes mellitus with hyperglycemia (Acute) Chest pain (Acute) Positive cardiac stress test (Acute) Abnormal stress test (Acute) Precordial chest pain (Acute) Type 2 diabetes mellitus with unspecified complications (Acute) Bilateral calf pain (Acute) PAD (peripheral artery disease) (Acute) Eczema (Acute) MGUS (monoclonal gammopathy of unknown significance) (Acute) Obesity due to excess calories (Acute) Leg pain (Acute) Localized osteoarthritis of left knee (Acute) Preop examination (Acute) Preoperative cardiovascular examination (Acute) Osteoarthritis, knee (Acute) Diabetes type 2, controlled (Acute) CKD stage 3 due to type 2 diabetes mellitus (Acute) Anxiety (Acute) GERD (gastroesophageal reflux disease) (Acute) Bipolar disorder (Acute) ROD (obstructive sleep apnea) (Acute) Morbid obesity (Acute) Dyslipidemia (Acute) Hypertension (Acute) Diabetic polyneuropathy associated with type 2 diabetes mellitus (Acute) 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 mellitus (Acute) prison (current) use of insulin (Acute) Past Medical History Medical History Anxiety Bipolar disorder Cataract CKD stage 3 due to type 2 diabetes mellitus COVID-19 vaccination declined Diabetes type 2, controlled 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 mellitus Diabetic polyneuropathy associated with type 2 diabetes mellitus Dyslipidemia GERD (gastroesophageal reflux disease) Hard of hearing Hearing loss in left ear Hypertension Interstitial cystitis prison (current) use of insulin Morbid obesity ROD (obstructive sleep apnea) Osteoarthritis, knee Tear of meniscus of left knee Family History Family History Father Brain tumor Mother CVA (cerebral vascular accident) Thyroid disease Hypertension Depression Daughter Substance abuse Maternal Grandfather CVA (cerebral vascular accident) Surgical History Surgical History History of arthroplasty of right knee History of bladder suspension procedure History of cardiac catheterization (~10/2020) History of esophagogastroduodenoscopy (EGD) History of hernia surgery History of open reduction and internal fixation (ORIF) procedure History of tonsillectomy Hx of cystoscopy Hx of tubal ligation Social History Social History Household Members: None Housing: Apartment Are you a primary critical care transport nurse to a significant other at home: No Do you presently have visiting nurse or other home services: No Alcohol intake: never Patient Tobacco Use Status: Former Tobacco user Quit Date: 2014 Tobacco use type: Cigarette Years Smoked: 35 e-Cigarette/Vaping Use: Never Used Second Hand Smoke Exposure: No Use of substances other than those prescribed or required for medical reasons: Yes Substance Use Type Other:: smokes marijuana 3X/week Have you been hit, kicked, punched, or otherwise hurt by someone within the past year? If so, by whom?: No Are you DNR?: No Advance Directives: Yes Advance Directives Information Provided: Yes Advance Directives on File: Yes Advance Directives Date on File: 04/01/20 Recently lost weight without trying: No Eating poorly because of decreased appetite: No Nutrition Risks: No Nutritional Risk Patient : No : No Poor oral hygiene: No (adentulous) service: No Current occupational status: unemployed Cognitive needs: No Hearing needs: Yes (hearing aides) Vision needs: No Meds Allergies Allergy/AdvReac Type Severity Reaction Status Date / Time lurasidone [From LATUDA] Allergy Severe SEVERE Verified 05/25/22 07:35 HIGH BLOOD SUGARS Home Medications Medication Instructions Recorded Confirmed Last Taken Type bupropion HCl 300 mg 24 hr tablet, 300 mg PO QAM 04/10/20 05/25/22 05/24/22 History extended release clonazepam 1 mg tablet 1 mg PO BEDTIME PRN Anxiety 04/10/20 05/25/22 05/23/22 History venlafaxine 150 mg 150 mg PO DAILY 09/15/20 05/25/22 05/24/22 History capsule,extended release 24 hr aspirin 81 mg tablet,delayed 81 mg PO DAILY 11/10/20 05/25/22 05/24/22 History release buspirone 30 mg tablet 30 mg PO BID 06/11/21 05/25/22 05/24/22 History hydroxyzine HCl 25 mg tablet 25 mg PO TID 06/11/21 05/25/22 05/24/22 History lamotrigine 150 mg tablet 150 mg PO BID 03/12/22 05/25/22 05/24/22 History acetaminophen 500 mg tablet 1,000 mg PO Q6H PRN pain/headache 05/12/22 05/25/22 05/23/22 History (Tylenol Extra Strength) insulin lispro 100 unit/mL 6 unit subcut TIDAC 05/12/22 05/25/22 05/24/22 History subcutaneous pen metformin 500 mg tablet 500 mg PO QAM 05/12/22 05/25/22 05/24/22 History Exam Exam Date and Time: May 12, 2022 1229 Height,Weight and Vital Signs: Height 5 ft 7 in Weight 110.677 kg Last Vital Signs Pulse 77 05/12/22 12:08 Resp 20 05/12/22 12:08 BP 113/63 05/12/22 12:08 Pulse Ox 95 05/12/22 12:08 O2 Del Method 05/12/22 12:08 Pertinent Lab Results Pertinent Lab Results: Laboratory Tests 04/21/22 04/21/22 11:13 11:13 WBC 7.4 Hgb 13.1 Hct 41.0 Plt Count 162 D Sodium 141 Potassium 4.5 Chloride 108 Carbon Dioxide 18 L BUN 21 H Creatinine 1.32 Narrative Narrative: EKG 04/2022 Vent. Rate : 069 BPM ? ? Atrial Rate : 069 BPM ?? P-R Int : 200 ms? QRS Dur : 114 ms ? ? QT Int : 412 ms ? ? ? P-R-T Axes : 008 049 097 degrees ?? QTc Int : 441 ms ? Normal sinus rhythm Intra-ventricular conduction delay Nonspecific ST abnormality ST & T wave abnormality, consider lateral ischemia Abnormal ECG When compared with ECG of 10-APR-2019 10:08, No significant changes seen NM al perf SPECT rest & str 2020 Impression: ? 1.? Myocardial perfusion imaging study shows normal myocardial perfusion 2.? Gated LVEF is 64% 3. Transient ischemic dilatation not present ? EKG is nondiagnostic for ischemia ECHO 2020 Conclusions: - 1. Normal LV systolic function with mild LVH with grade 1? ? ? diastolic dysfunction? 2. Normal cardiac valvular Doppler ? 3. Normal RV systolic pressure ? 4. No pericardial effusion ? ? ? Cardiac catheterization 2020 shows normal coronary arteries.? Mild LAD bridging only. Airway Mallampati Class: I TM Dist: >3cm Neck ROM: Full Loose/Missing/Broken Teeth: Yes (endentulous) Heart: RRR Lungs: CTAB Assessment and Plan Assessment Anesthesia Assessment: Anesthesia Plan Discussed and PAT Visit Documented by User: Van Khan MD 05/25/22 16:50 [facility] Past Medical History Medical History Anxiety Bipolar disorder Cataract CKD stage 3 due to type 2 diabetes mellitus COVID-19 vaccination declined Diabetes type 2, controlled 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 mellitus Diabetic polyneuropathy associated with type 2 diabetes mellitus Dyslipidemia GERD (gastroesophageal reflux disease) Hard of hearing Hearing loss in left ear Hypertension Interstitial cystitis prison (current) use of insulin Morbid obesity ROD (obstructive sleep apnea) Osteoarthritis, knee Tear of meniscus of left knee Family History Family History Father Brain tumor Mother CVA (cerebral vascular accident) Thyroid disease Hypertension Depression Daughter Substance abuse Maternal Grandfather CVA (cerebral vascular accident) Surgical History Surgical History History of arthroplasty of right knee History of bladder suspension procedure History of cardiac catheterization (~10/2020) History of esophagogastroduodenoscopy (EGD) History of hernia surgery History of open reduction and internal fixation (ORIF) procedure History of tonsillectomy Hx of cystoscopy Hx of tubal ligation History of Problems with Anesthesia: No Social History Social History Household Members: None Housing: Apartment Are you a primary critical care transport nurse to a significant other at home: No Do you presently have visiting nurse or other home services: No Alcohol intake: never Patient Tobacco Use Status: Former Tobacco user Quit Date: 2014 Tobacco use type: Cigarette Years Smoked: 35 e-Cigarette/Vaping Use: Never Used Second Hand Smoke Exposure: No Use of substances other than those prescribed or required for medical reasons: Yes Substance Use Type Other:: smokes marijuana 3X/week Have you been hit, kicked, punched, or otherwise hurt by someone within the past year? If so, by whom?: No Are you DNR?: No Advance Directives: Yes Advance Directives Information Provided: Yes Advance Directives on File: Yes Advance Directives Date on File: 04/01/20 Recently lost weight without trying: No Eating poorly because of decreased appetite: No Nutrition Risks: No Nutritional Risk Patient : No : No Poor oral hygiene: No (adentulous) service: No Current occupational status: unemployed Cognitive needs: No Hearing needs: Yes (hearing aides) Vision needs: No Meds Allergies Allergy/AdvReac Type Severity Reaction Status Date / Time lurasidone [From LATUDA] Allergy Severe SEVERE Verified 05/25/22 07:35 HIGH BLOOD SUGARS Home Medications Medication Instructions Recorded Confirmed Last Taken Type bupropion HCl 300 mg 24 hr tablet, 300 mg PO QAM 04/10/20 05/25/22 05/24/22 History extended release clonazepam 1 mg tablet 1 mg PO BEDTIME PRN Anxiety 04/10/20 05/25/22 05/23/22 History venlafaxine 150 mg 150 mg PO DAILY 09/15/20 05/25/22 05/24/22 History capsule,extended release 24 hr aspirin 81 mg tablet,delayed 81 mg PO DAILY 11/10/20 05/25/22 05/24/22 History release buspirone 30 mg tablet 30 mg PO BID 06/11/21 05/25/22 05/24/22 History hydroxyzine HCl 25 mg tablet 25 mg PO TID 06/11/21 05/25/22 05/24/22 History lamotrigine 150 mg tablet 150 mg PO BID 03/12/22 05/25/22 05/24/22 History acetaminophen 500 mg tablet 1,000 mg PO Q6H PRN pain/headache 05/12/22 05/25/22 05/23/22 History (Tylenol Extra Strength) insulin lispro 100 unit/mL 6 unit subcut TIDAC 05/12/22 05/25/22 05/24/22 History subcutaneous pen metformin 500 mg tablet 500 mg PO QAM 05/12/22 05/25/22 05/24/22 History Assessment and Plan Assessment Anesthesia Assessment: Chart Reviewed Final Anesthetic Review History of Problems with Anesthesia: No NPO: Yes ASA Class: III Final Preanesthetic Review: Meds/Allgs Chart Reviewed, Consent Obtained/Reviewed and Anes Risks/Benef Reviewed Patient Risk: Intermediate Procedure Risk: Intermediate Anesthetic Plan Anesthetic Plan: GA, Spinal and Regional Block Disposition: Inp. Admit - Standard Bed
[2022-05-12 14:38] LABS: MRSA Nasal PCR NEGATIVE (Negative); SA Nasal PCR NEGATIVE (Negative)
[2022-05-25] VITALS (11 sets, daily range): BP systolic 102–133; BP diastolic 59–81; PULSE 63–85; RESP 10–19; TEMP 36.5–36.9; O2SAT 92–96
--- NOTE | ~2022-05-25 | XR_ITS ---
EXAMINATION: XR KNEE, LEFT CLINICAL INFORMATION: Left knee replacement COMPARISON: Previous x-ray February 2016 TECHNIQUE: Two views of the left knee. FINDINGS: There is a new left knee replacement in satisfactory position. No fracture or dislocation. There are postsurgical changes to the soft tissues. XR/XR knee LT 2V IMPRESSION: Satisfactory appearance of left knee replacement.
[2022-05-25 08:11] LABS: Glucose, Whole Blood 127 mg/dL (60-115)
[2022-05-25 08:12] LABS: COVID-19 Test Negative (Negative); IDNOW Serial# 16C4AD1C
[2022-05-25 08:13] LABS: Hematocrit 40.4 % (37.0-47.0); Hemoglobin 13.4 g/dl (12.0-16.0)
[2022-05-25] MEDS: Lactated Ringers 1,000 ML 100 ML IVCONT ×3 (08:41→23:50)
--- NOTE | 2022-05-25 10:12 | MHC.SHP ---
Pre-Procedural Eval Section A Date of Service: 05/25/22 The patient is an INPATIENT: No Changes since office visit: Yes Patient answered all questions; No Cold of Flu in the past 2 weeks, No New Medical Problems and No Changes in Medication The History & Physical has been completed within 30 days and I have reviewed it.: Yes Section B Chief Complaint: LT TKA Allergies: Allergies Allergy/AdvReac Type Severity Reaction Status Date / Time lurasidone [From LATUDA] Allergy Severe SEVERE Verified 05/25/22 07:35 HIGH BLOOD SUGARS Plan I have reviewed the history and physical and performed a pertinent physical examination on my patient. No changes have occurred unless specified.
[2022-05-25] MEDS: ceFAZolin Sodium/Dextrose,Iso 2 GM/50 ML PIGGYBACK IV ×2 (11:17→17:30)
--- NOTE | 2022-05-25 12:57 | PM.OP ---
Brief Operative Note Date of Service: 05/25/22 Pre-op diagnosis: left knee OA Procedure: Left TKA Implants: [employer] 10/28/10PS/32a Surgeon: Terry Vincent MD Anesthesia: GETA and local Was an Billing Customer Service Representative used for this Procedure?: Yes Billing Customer Service Representative: Josh Palumbo Estimated blood loss (mL): 300 IV fluids (mL): 1,000 Pathology: other Condition: stable Disposition: PACU
--- NOTE | 2022-05-25 13:19 | W.PM.OPN ---
Operative Note Operative Note Date of Service: 05/25/22 Narrative: Date of Service: 05/25/22 Pre-op diagnosis: left knee OA Procedure: Left TKA Implants: [place] [employer] 10/28/10PS/32a Surgeon: Terry Vincent MD Anesthesia: GETA and local Was an Upholstery Estimator used for this Procedure?: Yes Upholstery Estimator: Josh Palumbo Estimated blood loss (mL): 300 IV fluids (mL): 1,000 Pathology: other Condition: stable Disposition: PACU Procedure in detail: The patient was brought to the operating room and prepped and draped in standard sterile fashion. A time-out was called to identify proper site proper procedure proper surgeon and IV antibiotics were administered. 1 g of IV tranexamic acid was administered. I began by making a midline incision to the retinaculum and performed a medial parapatellar arthrotomy. The patella was translated laterally and the knee was flexed up.The medial compartment was eburnated. I performed a small medial peel and resected the infrapatellar fat pad. Amol's line was then used to drill my intramedullary femoral guide and my distal femur cut of 10 mm was made in 5 degrees of valgus while protecting the soft tissues. I then measured a # 5 femur and placed my cutting guide and made my anterior posterior and chamfer cuts protecting the soft tissues at all times. I then made my box but removing the PCL. Once I was satisfied with my cuts I turned my attention to the tibia. I removed the meniscus medially and laterally and , using an external cutting guide, in line with the tibial crest and the third ray, I made my distal tibial cut in 0 deg slope of while protecting the posterior soft tissues at all times. An extension block was used to confirm appropriate amount of bony resection. I then sized a #4 tibia and once I was satisfied that there was complete tibial coverage I placed my trial and with the trial femur in place took the knee through range of motion. I was satisfied with the extension and flexion as well as the stability at 0, 30 and 90 degrees. I then turned my attention to the patella where I removed 1 cm from the undersurface of the patella and then trialed a 32a patellar button. Again the knee was taken through range of motion I was satisfied with the tracking. I then returned to the femur and drilled my femoral lug holes and prepared the tibia. A femoral bone plug was placed and the knee was irrigated copiously. I then press fit the patella, tibia and femur in standard fashion. I trialed different inserts until I selected a #11 insert. The final insert was placed and a 3 minutes iodine soak with local TXA was performed. The knee was then closed with a running Quill suture, a 3 0 Vicryl and daisy on the skin. Patient was then placed in sterile dressing and brought to recovery room in stable condition there were no known complications.
[2022-05-25] MEDS: oxyCODONE HCl Immed Release 5 MG TABLET PO ×2 (14:46→20:26)
[2022-05-25 18:21] LABS: Glucose, Whole Blood 151 mg/dL (60-115)
[2022-05-25] MEDS: HYDROmorphone HCl 0.5 MG/0.5 ML SYRINGE 0.25 MG IVPUSH ×2 (18:31→23:45)
[2022-05-25] MEDS: 0.9 % Sodium Chloride Flush 3 ML SYRINGE IVFLUSH (18:31)
[2022-05-25] MEDS: Celecoxib 200 MG CAPSULE PO (20:26)
[2022-05-25] MEDS: Docusate Sodium 100 MG CAPSULE PO (20:26)
[2022-05-25] MEDS: oxyCODONE HCl ER 10 MG TAB.ER.12H PO (20:26)
[2022-05-26] VITALS (8 sets, daily range): BP systolic 122–140; BP diastolic 56–68; PULSE 80–98; RESP 18–20; TEMP 36.3–37.3; O2SAT 91–98
[2022-05-26] MEDS: HYDROmorphone HCl 0.5 MG/0.5 ML SYRINGE 0.25 MG IVPUSH ×4 (04:00→19:24)
[2022-05-26] MEDS: oxyCODONE HCl Immed Release 5 MG TABLET PO ×2 (05:00→11:56)
[2022-05-26 06:02] LABS: MANUAL DIFF FLAG NO
[2022-05-26 06:06] LABS: Basophils Absolute Auto 0.1 X10*3/uL (0.0-0.2); Basophils Percent Auto 0.6 % (0-2); Eosinophils Absolute Auto 0.1 X10*3/uL (0.0-0.4); Eosinophils Percent Auto 1.1 % (0-4); Hematocrit 35.1 % (37.0-47.0); Hemoglobin 11.6 g/dl (12.0-16.0); Imm Gran Abs Auto 0.06 X10*3/uL (0.00-0.03); Imm Gran Pct Auto 0.6 % (0.0-0.4); Lymphocytes Absolute Auto 0.9 X10*3/uL (1.2-4.9); Lymphocytes Percent Auto 8.6 % (20-40); Mean Corpuscular Hemoglobin 28.9 pg (27.0-33.0); Mean Corpuscular Volume 87.3 fL (80.0-98.0); Mean Platelet Volume 10.3 fL (9.4-12.3); Monocytes Absolute Auto 1.2 X10*3/uL (0.1-1.2); Monocytes Percent Auto 12.1 % (2-11); Neutrophils Absolute Auto 7.8 x10*3/uL (2.0-8.3); Platelet Count 252 X10*3/uL (160-400); Red Blood Count 4.02 X10*6/uL (4.20-5.50); Red Cell Distribution Width 13.4 % (11.0-16.0); White Blood Count 10.1 X10*3/uL (4.8-10.8)
[2022-05-26 06:50] LABS: Anion Gap 13 (12-20); Blood Urea Nitrogen 24 mg/dL (9-16); Calcium 9.1 mg/dL (8.4-10.2); Carbon Dioxide 23 mmol/L (22-29); Chloride 103 mmol/L (96-108); Creatinine Clr Calc Pharmacy 70.4; Estimated Glomerular Filt Rate 50; Glucose Fasting 147 mg/dL (60-99); Potassium 3.8 mmol/L (3.3-5.1); Sodium 135 mmol/L (135-145)
[2022-05-26] MEDS: Docusate Sodium 100 MG CAPSULE PO ×2 (07:43→20:29)
[2022-05-26] MEDS: 0.9 % Sodium Chloride Flush 3 ML SYRINGE IVFLUSH ×2 (07:43→13:11)
[2022-05-26] MEDS: Celecoxib 200 MG CAPSULE PO ×2 (07:43→20:29)
[2022-05-26] MEDS: oxyCODONE HCl ER 10 MG TAB.ER.12H PO ×2 (07:43→20:29)
[2022-05-26 08:12] LABS: Glucose, Whole Blood 142 mg/dL (60-115)
--- NOTE | 2022-05-26 08:17 | P.PNOP_ITS ---
Subjective Subjective Date of Service: 05/26/22 Interval history: POD 1 s/p RT AFTAB no overnight events she is resting in bed, having diff time with pain. She has been out of bed using the commode denies cp, palpitations, sob Physical Exam Vital Signs: Vital Signs: Last Vital Signs Temp 97.8 F 05/26/22 07:50 Pulse 87 05/26/22 07:50 Resp 18 05/26/22 07:50 BP 125/64 05/26/22 07:50 Pulse Ox 98 05/26/22 07:50 O2 Del Method 05/26/22 07:50 O2 Flow Rate 2 05/26/22 04:00 BMI result Body Mass Index 38.2 Const: General: cooperative, healthy appearing and no acute distress Resp: Effort & Inspection: normal respiratory effort and able to speak in complete sentences Cardio: Rate: regular rate Peripheral pulses: Peripheral pulses 2+ throughout GI: Palpation (GI): Soft to palpation Skin: General skin exam: no rashes or lesions noted Extrem: Other: incision clean dry and intact. Taylor intact. No erythema or joint effusion. Calf supple nontender. Neurovascularly intact. Procedures Date of Service Date of Service: 05/26/22 Progress Note: A&P Assessment and plan (1) Status post total knee replacement, left: Status: Acute Assessment and Plan: * Continue pain mgmnt * Begin Lovenox for dvt ppx * begin PT for LT TKA * Dispo planning-Pending PT eval, pain mgmnt Time Spent With Patient Time: Total time spent is greater than 50% in coordination of care (as documented) at patient's floor/unit and/or counseling patient: Quality Stroke Does the patient have a stroke diagnosis?: No VTE Prior VTE?: No VTE Risk Level:: Surgical - very high VTE Device Contraindication: N/A - Device Ordered VTE Drug Contraindication: N/A - Med Ordered
--- NOTE | 2022-05-26 10:18 | P.CONHOSP_ITS ---
History of Present Illness Data of Consult Service Date: 05/26/22 Requesting physician: Josh Palumbo Primary Care Provider: Diamond Velasquez MD [facility] Reason for consult: Diabetes management Hospitalist consult for a 57-year-old female s/p total left knee replacement who needs diabetes medical management. Pt complains of chronic headache and left knee pain. Denies dizziness or lightheadedness. Denies chest pain or pressure, palpitations, or SOB. Pt placed on Lantus and listpro sliding scale. Review of Systems Review of Systems: Left knee pain Chronic headache Denies chest pain or pressure No SOB Yes all other systems are reviewed and are negative [facility] Medical History Anxiety Bipolar disorder Cataract CKD stage 3 due to type 2 diabetes mellitus COVID-19 vaccination declined Diabetes type 2, controlled 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 mellitus Diabetic polyneuropathy associated with type 2 diabetes mellitus Dyslipidemia GERD (gastroesophageal reflux disease) Hard of hearing Hearing loss in left ear Hypertension Interstitial cystitis meterman (current) use of insulin Morbid obesity ROD (obstructive sleep apnea) Osteoarthritis, knee Tear of meniscus of left knee Family History (Updated 05/26/22 @ 09:44 by MARITZA Licona) Father Brain tumor Mother CVA (cerebral vascular accident) Thyroid disease Hypertension Depression Daughter Substance abuse Maternal Grandfather CVA (cerebral vascular accident) Maternal Grandmother Diabetes Surgical History History of arthroplasty of right knee History of bladder suspension procedure History of cardiac catheterization (~10/2020) History of esophagogastroduodenoscopy (EGD) History of hernia surgery History of open reduction and internal fixation (ORIF) procedure History of tonsillectomy Hx of cystoscopy Hx of tubal ligation Social History Household Members: None Housing: Apartment Are you a primary point of care specialist to a significant other at home: No Do you presently have visiting nurse or other home services: No Alcohol intake: never Patient Tobacco Use Status: Former Tobacco user Quit Date: 2014 Tobacco use type: Cigarette Years Smoked: 35 e-Cigarette/Vaping Use: Never Used Second Hand Smoke Exposure: No Use of substances other than those prescribed or required for medical reasons: Yes Substance Use Type Other:: smokes marijuana 3X/week Currently Displaying Signs/Symptoms of Drug Intoxication Withdrawal: No Have you been hit, kicked, punched, or otherwise hurt by someone within the past year? If so, by whom?: No Are you DNR?: No Advance Directives: Yes Advance Directives Information Provided: Yes Advance Directives on File: Yes Advance Directives Date on File: 04/01/20 Recently lost weight without trying: No Eating poorly because of decreased appetite: No Nutrition Risks: No Nutritional Risk Patient : No : No Poor oral hygiene: No (adentulous) service: No Current occupational status: unemployed Cognitive needs: No Hearing needs: Yes (hearing aides) Vision needs: No Meds Allergies Allergy/AdvReac Type Severity Reaction Status Date / Time lurasidone [From LATUDA] Allergy Severe SEVERE Verified 05/25/22 07:35 HIGH BLOOD SUGARS Active Medications: Current Medications Acetaminophen (Acetaminophen 325 Mg Tablet) 650 mg PO Q6H PRN PRN Reason: Pain, Mild (Pain Scale 1-3) Celecoxib (Celecoxib 200 Mg Capsule) 200 mg PO BID [facility] Last Admin: 05/26/22 07:43 Dose: 200 mg Dextrose (Dextrose 50 % 25 Gm/50 Ml Syringe) 25 gm IVPUSH Q15M PRN; Protocol PRN Reason: per Hypoglycemia Standing Ord. Docusate Sodium (Docusate Sodium 100 Mg Capsule) 100 mg PO BID [facility] Last Admin: 05/26/22 07:43 Dose: 100 mg Enoxaparin Sodium (Enoxaparin Sodium 40 Mg/0.4 Ml Syringe) 40 mg SUBCUT Q24H [facility] Glucose (Glucose Gel 15 Gm Gel..Gram.) 15 gm PO Q15M PRN; Protocol PRN Reason: per Hypoglycemia Standing Ord. Hydromorphone HCl (Hydromorphone Hcl 0.5 Mg/0.5 Ml Syringe) 0.25 mg IVPUSH Q5M PRN; Protocol PRN Reason: Pain, Severe (Pain Scale 7-10) Hydromorphone HCl (Hydromorphone Hcl 0.5 Mg/0.5 Ml Syringe) 0.25 mg IVPUSH Q4H PRN; Protocol PRN Reason: Pain, Severe (Pain Scale 7-10) Last Admin: 05/26/22 08:52 Dose: 0.25 mg Lactated Ringer's (Lr) 1,000 mls @ 100 mls/hr IVCONT .Q10H [facility] Stop: 05/26/22 14:07 Last Infusion: 05/26/22 08:47 Dose: Infused Insulin Glargine (Insulin Glargine,Hum.Rec.Anlog 100 Unit/Ml 10 Ml Vial) 23 unit SUBCUT BEDTIME [facility] Insulin Human Lispro (Insulin Lispro 100 Unit/Ml 3 Ml Vial) 0 unit SUBCUT QIDACHS [facility]; Protocol Ondansetron HCl (Ondansetron Hcl 4 Mg/2 Ml Vial) 4 mg IVPUSH Q8H PRN PRN Reason: Nausea and Vomiting Oxycodone HCl (Oxycodone Hcl Immed Release 5 Mg Tablet) 5 mg PO Q4H PRN PRN Reason: Pain, Moderate (Pain Scale 4-6 Last Admin: 05/26/22 05:00 Dose: 5 mg Oxycodone HCl (Oxycodone Hcl Er 10 Mg Tab.Er.12h) 10 mg PO BID [facility] Last Admin: 05/26/22 07:43 Dose: 10 mg Sodium Chloride (0.9 % Sodium Chloride Flush 3 Ml Syringe) 3 ml IVFLUSH [facility] Last Admin: 05/26/22 07:43 Dose: 3 ml Home Medications Medication Instructions Recorded Confirmed Last Taken Type bupropion HCl 300 mg 24 hr tablet, 300 mg PO QAM 04/10/20 05/25/22 05/24/22 History extended release clonazepam 1 mg tablet 1 mg PO BEDTIME PRN Anxiety 04/10/20 05/25/22 05/23/22 History venlafaxine 150 mg 150 mg PO DAILY 09/15/20 05/25/22 05/24/22 History capsule,extended release 24 hr aspirin 81 mg tablet,delayed 81 mg PO DAILY 11/10/20 05/25/22 05/24/22 History release buspirone 30 mg tablet 30 mg PO BID 06/11/21 05/25/22 05/24/22 History hydroxyzine HCl 25 mg tablet 25 mg PO TID 06/11/21 05/25/22 05/24/22 History lamotrigine 150 mg tablet 150 mg PO BID 03/12/22 05/25/22 05/24/22 History acetaminophen 500 mg tablet 1,000 mg PO Q6H PRN pain/headache 05/12/22 05/25/22 05/23/22 History (Tylenol Extra Strength) insulin lispro 100 unit/mL 6 unit subcut TIDAC 05/12/22 05/25/22 05/24/22 History subcutaneous pen metformin 500 mg tablet 500 mg PO QAM 05/12/22 05/25/22 05/24/22 History Physical Exam Vital Signs and Narrative: Vital Signs: Last Vital Signs Temp 97.8 F 05/26/22 07:50 Pulse 87 05/26/22 07:50 Resp 18 05/26/22 07:50 BP 125/64 05/26/22 07:50 Pulse Ox 98 05/26/22 07:50 O2 Del Method 05/26/22 07:50 O2 Flow Rate 2 05/26/22 04:00 BMI result Body Mass Index 38.2 General: AOx3, no acute distress Resp: CTA bilaterally CVS: S1, S2, RRR GI: +BS, NT, no distention Skin: No rash Neuro: Motor grossly intact Psych: Appropriate affect Results Labs CBC and Chem 7: 05/26/22 05:12 05/26/22 05:12 Labs: Laboratory Results - last 24 hr 05/25/22 05/26/22 05/26/22 17:57 05:12 05:12 MCV 87.3 MCH 28.9 MCHC 33.0 RDW 13.4 Plt Count 252 D MPV 10.3 Immature Gran % (Auto) 0.6 H Neut % (Auto) 77.0 H Lymph % (Auto) 8.6 L [place] % (Auto) 12.1 H Eos % (Auto) 1.1 Baso % (Auto) 0.6 Lymph # (Auto) 0.9 L [place] # (Auto) 1.2 Eos # (Auto) 0.1 Baso # (Auto) 0.1 Abs Immat Gran (auto) 0.06 H Absolute Neuts (auto) 7.8 Absolute Nucleated RBC 0.000 Nucleated RBC % (auto) 0.0 Anion Gap 13 Estim Creat Clear Calc 70.4 Estimated GFR 50 POC Glucose 151 H Fasting Glucose 147 H Calcium 9.1 05/26/22 07:55 MCV MCH MCHC RDW Plt Count MPV Immature Gran % (Auto) Neut % (Auto) Lymph % (Auto) [place] % (Auto) Eos % (Auto) Baso % (Auto) Lymph # (Auto) [place] # (Auto) Eos # (Auto) Baso # (Auto) Abs Immat Gran (auto) Absolute Neuts (auto) Absolute Nucleated RBC Nucleated RBC % (auto) Anion Gap Estim Creat Clear Calc Estimated GFR POC Glucose 142 H Fasting Glucose Calcium Imaging Radiologist's Impressions: Impressions Knee X-Ray 05/25/22 13:46 IMPRESSION: Satisfactory appearance of left knee replacement. Assessment and Plan (1) Status post total knee replacement, left: Status: Acute (2) Diabetes type 2, controlled: Qualifiers: Diabetes mellitus complication status: with hypoglycemia Diabetes mellitus fdc insulin use: with terminologist use Qualified Code(s): E11.649 - Type 2 diabetes mellitus with hypoglycemia without coma; Z79.4 - assisted (current) use of insulin Status: Acute Plan Pt is a 57-year-old female s/p total left knee replacement in need of diabetes medical management. # insulin-dependent diabetes type 2, controlled -- Lantus and sliding scale insulin -- diabetic diet # status post total knee replacement, left -- under management by ortho Will follow prn
[2022-05-26 11:34] LABS: Glucose, Whole Blood 129 mg/dL (60-115)
[2022-05-26] MEDS: Acetaminophen 325 MG TABLET 650 MG PO (11:56)
[2022-05-26] MEDS: Enoxaparin Sodium 40 MG/0.4 ML SYRINGE SUBCUT (11:56)
[2022-05-26] MEDS: Acetaminophen 1,000 MG/100 ML PIGGYBACK 400 MG IV (13:08)
[2022-05-26] MEDS: Lactated Ringers 1,000 ML 100 ML IVCONT (13:21)
--- NOTE | 2022-05-26 13:38 | HO.POSTANES ---
Post Anesthesia Evaluation Post Anesthesia Evaluation Vital Signs: Vital Signs Temp Pulse Resp BP Pulse Ox O2 Del Method O2 Flow Rate 05/26/22 11:19 97.6 F 83 18 127/64 94 Room Air 05/26/22 10:23 87 125/64 98 05/26/22 07:50 97.8 F 87 18 125/64 98 Room Air 05/26/22 04:00 97.3 F 86 18 122/56 L 96 Nasal Cannula 2 Anesthesia: Nerve Block and General Mental Status: Awake Pain Control: Satisfactory (difficult time with pain) Nausea/Vomiting: Mild Hydration: Adequate Anesthesia-Related Issues: No Anes. Related Issues
--- NOTE | 2022-05-26 13:51 | MHC.CM.PN ---
EMR REVIEWED, PT ADMITTED S/P LEFT TKA, CM MET W/PT WHO REPORTS SHE LIVES W/BF AND HE WILL TRANSPORT HER HOME, PT REPORTS SHE IS INDEP AT BASELINE, HAS A WALKER AND DENIES ANY OTHER DME OR HOME SERVICES, PT REPORTS SHE WOULD LIKE TO D/C HOME W/SERVICES, PT REPORTS SHE ONLY HAS ONE STAIR LEADING INTO APT. PT VERIFIES PCP IS W[facility], DENIES BEING VACCINATED FOR COVID AND HAS BEEN EDUCATED ON AND COMPLETED AN HCP W/CM NAMING HER BF MALA AALIYAH [phone] HER [facility] W/NO ALTERNATE CHOSEN AT THIS TIME. ANTIC D/C /TUE W/NEW VNA FOR HOME OT/PT, BF MALA FOR TRANSPORT
[2022-05-26 16:29] LABS: Glucose, Whole Blood 133 mg/dL (60-115)
[2022-05-26] MEDS: oxyCODONE HCl Immed Release 5 MG TABLET 10 MG PO ×2 (17:10→22:43)
[2022-05-26 19:26] LABS: Glucose, Whole Blood 154 mg/dL (60-115)
[2022-05-26] MEDS: Insulin Lispro 100 UNIT/ML 3 ML VIAL SUBCUT (20:29)
[2022-05-26] MEDS: Insulin Glargine,Hum.rec.anlog 100 UNIT/ML 10 ML VIAL 23 UNIT SUBCUT (20:30)
[2022-05-27] VITALS: BP 120/58; PULSE 94; RESP 20; TEMP 36.8; O2SAT 95
[2022-05-27] MEDS: HYDROmorphone HCl 0.5 MG/0.5 ML SYRINGE 0.25 MG IVPUSH ×3 (00:05→09:31)
[2022-05-27] MEDS: 0.9 % Sodium Chloride Flush 3 ML SYRINGE IVFLUSH ×2 (00:06→09:26)
[2022-05-27 03:39] VITALS: BP 112/62; PULSE 85; RESP 18; TEMP 36.9; O2SAT 96
[2022-05-27 05:52] LABS: MANUAL DIFF FLAG NO
[2022-05-27 06:09] LABS: Anion Gap 13 (12-20); Blood Urea Nitrogen 19 mg/dL (9-16); Calcium 9.1 mg/dL (8.4-10.2); Carbon Dioxide 23 mmol/L (22-29); Chloride 104 mmol/L (96-108); Creatinine Clr Calc Pharmacy 75.7; Estimated Glomerular Filt Rate 54; Glucose Fasting 127 mg/dL (60-99); Potassium 3.6 mmol/L (3.3-5.1); Sodium 136 mmol/L (135-145)
[2022-05-27 06:17] LABS: Basophils Absolute Auto 0.1 X10*3/uL (0.0-0.2); Basophils Percent Auto 0.7 % (0-2); Eosinophils Absolute Auto 0.3 X10*3/uL (0.0-0.4); Eosinophils Percent Auto 3.1 % (0-4); Hematocrit 34.7 % (37.0-47.0); Hemoglobin 11.4 g/dl (12.0-16.0); Imm Gran Abs Auto 0.05 X10*3/uL (0.00-0.03); Imm Gran Pct Auto 0.6 % (0.0-0.4); Lymphocytes Absolute Auto 0.9 X10*3/uL (1.2-4.9); Lymphocytes Percent Auto 10.4 % (20-40); Mean Corpuscular HGB Conc 32.9 g/dl (31.0-35.0); Mean Corpuscular Hemoglobin 29.3 pg (27.0-33.0); Mean Corpuscular Volume 89.2 fL (80.0-98.0); Mean Platelet Volume 10.5 fL (9.4-12.3); Monocytes Percent Auto 11.1 % (2-11); Neutrophils Absolute Auto 6.6 x10*3/uL (2.0-8.3); Neutrophils Percent Auto 74.1 % (45-73); Platelet Count 213 X10*3/uL (160-400); Red Blood Count 3.89 X10*6/uL (4.20-5.50); Red Cell Distribution Width 13.3 % (11.0-16.0); White Blood Count 8.9 X10*3/uL (4.8-10.8)
[2022-05-27 08:00] VITALS: BP 124/61; PULSE 90; RESP 18; TEMP 37.3; O2SAT 91
--- NOTE | 2022-05-27 08:02 | PM.DS ---
DS: Providers Provider Date of Service: 05/27/22 Date of admission: 05/25/22 07:27 Primary care physician: Diamond Velasquez MD Consults: 05/25/22 17:44 Consult to Hospitalist Routine Consulting Provider: Hospitalist Reason For Exam: DIABETES DS: Diagnosis Discharge Diagnosis (1) Status post total knee replacement, left: Status: Acute (2) Diabetes type 2, controlled: Status: Acute DS: Summary Hospital Course Hospital Course: The patient underwent a successful left total knee arthroplasty, they were transferred to PACU and then to the floor to recover. During their stay, their vitals were stable, afebrile at 98.4. Labs were unremarkable, H/H 11.4/34.7. POD 1 they were started on Lovenox for DVT ppx, they also received Physical Therapy services twice a day. Prior to discharge, their dressing was changed, incision clean dry and intact, new Aquacel dressing applied and the plan was to be discharged home with VNA services. Time Spent with Patient Time attestation: Total time spent providing and/or coordinating discharge services: Discharge coordination time: Less than 30 minutes Quality: Safe Use of Opioids Does Pt have an Active Cancer Diagnosis on the Problem List?: No Quality: Stroke Does the patient have a stroke diagnosis?: No Physical Exam Vital Signs: Vital Signs: Last Vital Signs Temp 98.4 F 05/27/22 03:39 Pulse 85 05/27/22 03:39 Resp 18 05/27/22 03:39 BP 112/62 05/27/22 03:39 Pulse Ox 96 05/27/22 03:39 O2 Del Method 05/27/22 03:39 O2 Flow Rate 2 05/26/22 04:00 BMI result Body Mass Index 38.2 Const: General: cooperative, healthy appearing and no acute distress Resp: Effort & Inspection: normal respiratory effort and able to speak in complete sentences Cardio: Rate: regular rate Peripheral pulses: Peripheral pulses 2+ throughout GI: Palpation (GI): Soft to palpation Skin: Lesions: no lesions Rashes: no rashes Extrem: Other: Left knee Aquacel changed. Taylor intact. No erythema or redness. No drainage. NVI. DS: Data Data Completed and Pending Pending studies at discharge: Pending at discharge 05/25/22 12:29 Surgical [PTH] Routine Labs on day of discharge: Laboratory Results - last 24 hr 05/26/22 05/26/22 05/26/22 07:55 11:17 16:23 WBC RBC Hgb Hct MCV MCH MCHC RDW Plt Count MPV Immature Gran % (Auto) Neut % (Auto) Lymph % (Auto) [place] % (Auto) Eos % (Auto) Baso % (Auto) Lymph # (Auto) [place] # (Auto) Eos # (Auto) Baso # (Auto) Abs Immat Gran (auto) Absolute Neuts (auto) Absolute Nucleated RBC Nucleated RBC % (auto) Sodium Potassium Chloride Carbon Dioxide Anion Gap BUN Creatinine Estim Creat Clear Calc Estimated GFR POC Glucose 142 H 129 H 133 H Fasting Glucose Calcium 05/26/22 05/27/22 05/27/22 19:13 05:30 05:30 WBC 8.9 RBC 3.89 L Hgb 11.4 L Hct 34.7 L MCV 89.2 MCH 29.3 MCHC 32.9 RDW 13.3 Plt Count 213 MPV 10.5 Immature Gran % (Auto) 0.6 H Neut % (Auto) 74.1 H Lymph % (Auto) 10.4 L [place] % (Auto) 11.1 H Eos % (Auto) 3.1 Baso % (Auto) 0.7 Lymph # (Auto) 0.9 L [place] # (Auto) 1.0 Eos # (Auto) 0.3 Baso # (Auto) 0.1 Abs Immat Gran (auto) 0.05 H Absolute Neuts (auto) 6.6 Absolute Nucleated RBC 0.000 Nucleated RBC % (auto) 0.0 Sodium 136 Potassium 3.6 Chloride 104 Carbon Dioxide 23 Anion Gap 13 BUN 19 H Creatinine 1.05 Estim Creat Clear Calc 75.7 Estimated GFR 54 POC Glucose 154 H Fasting Glucose 127 H Calcium 9.1 Discharge Plan Discharge Anticipated Discharge Date/Time: 05/27/22 07:56 Patient Disposition: Home Health Service Discharge Diagnosis: s/p LTKA Referrals: Josh Palumbo PA-C [Physician Geoscientist] - 06/10/22 2:30 pm Discharge Medications: New celecoxib 200 mg Capsule 200 mg PO BID 30 Days Qty: 60 0RF acetaminophen 325 mg Tablet 650 mg PO Q6H PRN (Reason: Pain, Mild (Pain Scale 1-3)) 30 Days Qty: 240 0RF enoxaparin 40 mg/0.4 mL Syringe 40 mg subcut Q24H 42 Days Qty: 16.8 0RF oxycodone 10 mg tablet 10 mg PO Q4H PRN (Reason: Pain, Moderate (Pain Scale 4-6) 7 Days Qty: 42 0RF Rx Instructions: Partial Fill upon patient request. docusate sodium 100 mg Capsule 100 mg PO BID 30 Days Qty: 60 0RF Continued nitroglycerin 0.4 mg tablet, sublingual 0.4 mg sublingual Q5M PRN (Reason: chest pain) Qty: 30 5RF Rx Instructions: do not exceed 3 doses per episode fenofibrate 160 mg tablet 160 mg PO DAILY Qty: 90 3RF ascorbic acid (vitamin C) 500 mg tablet 500 mg PO BID Qty: 180 3RF Lantus Solostar U-100 Insulin 100 unit/mL (3 mL) insulin pen 30 unit subcut BEDTIME 30 Days Qty: 15 4RF ferrous sulfate 325 mg (65 mg iron) tablet 325 mg PO BID Qty: 180 3RF Trulicity 0.75 mg/0.5 mL pen injector 0.75 mg subcut QWEEK Qty: 2 6RF folic acid 1 mg tablet 1 mg PO DAILY Qty: 90 3RF lisinopril 2.5 mg tablet 2.5 mg PO DAILY 90 Days Qty: 90 1RF omeprazole 20 mg capsule,delayed release(DR/EC) 20 mg PO DAILY Qty: 90 3RF atorvastatin 20 mg tablet 20 mg PO DAILY Qty: 30 0RF tizanidine 4 mg tablet 4 mg PO BEDTIME PRN (Reason: muscle spasm) 30 Days Qty: 60 3RF insulin lispro 100 unit/mL insulin pen 6 unit subcut TIDAC Rx Instructions: use before meals metformin 500 mg tablet 500 mg PO QAM Rx Instructions: FUTURE REFILLS TO PCP. clonazepam 1 mg tablet 1 mg PO BEDTIME PRN (Reason: Anxiety) bupropion HCl 300 mg tablet extended release 24 hr 300 mg PO QAM venlafaxine 150 mg capsule,extended release 24hr 150 mg PO DAILY (DME) pen needle, diabetic [BD Shelly 2nd Gen Pen Needle] 32 gauge x 5/32 needle See Rx Instructions .MEDSUPPLY Qty: 400 4RF Rx Instructions: 5 times a day lamotrigine 150 mg tablet 150 mg PO BID hydroxyzine HCl 25 mg tablet 25 mg PO TID buspirone 30 mg tablet 30 mg PO BID Held aspirin 81 mg tablet,delayed release (DR/EC) 81 mg PO DAILY Hold Instructions: Resume on 07/09/22. Continue after last dose of Lovenox (6 weeks) Discontinued acetaminophen [Tylenol Extra Strength] 500 mg Tablet 1,000 mg PO Q6H PRN (Reason: pain/headache) Discharge Orders: Discharge Order (Routine); Ordered 05/27/22 Ordered By: Herlinda Gale Diet: Regular diet Activity on Discharge: Use cane or walker Stand Alone Forms: Patient Portal Discharge page Care Plan Goals: REstore fxn to left knee Health Concerns: None Plan of Treatment: Physical Therapy for total hip arthroplasty: posterior precautions, gait training, ROM, strength Limit stair climbing No showering, no tub bath-keep dressing clean, dry and intact No driving x6 weeks Continue Lovenox x6 weeks Follow up with [facility] in 2 weeks Assessment: Stable for d/c
[2022-05-27 08:08] LABS: Glucose, Whole Blood 131 mg/dL (60-115)
--- NOTE | 2022-05-27 08:31 | MHC.CM.PN ---
PT WILL DC HOME TODAY WITH [facility] FOR HOME PT SERVICES PT TO ARRANGE TRANSPORTATION
--- NOTE | 2022-05-27 08:33 | P.F2F_ITS ---
Service Date Service Date: 05/27/22 Encounter Date of encounter: 05/27/22 Reasons for Services Signs and symptoms assessed: Pt. is considered homebound due to recent surgery. Unable to drive, poor balance, poor gait mechanics. S/p left total knee replacement. Reason for physical therapy: home safety and mobility, therapeutic exercises, restore joint function, gait/transfer training, assess need for DME and ADL training Homebound: Leaving the home is medically contraindicated at this time without the asist of a device and/or another person due th the listed conditions above and below. Reason homebound: unsteady gait / fall risk, leg weakness, pain with ambulation, pain with transfers, poor balance / fall risk and unable to drive Homebound supporting statement: Pt. is considered homebound due to recent surgery. Unable to drive, poor balance, poor gait mechanics. Certification: Based on the above findings, I certify that this patient is confined to the home and needs intermittent [facility] care, physical therapy and/or speech therapy, or continues to need occupational therapy. The patient is under my care, and I have initiated the establishment of the plan of care. The patient will be followed by a physician who will periodically review the plan of care.
[2022-05-27 08:37] VITALS: PULSE 116; O2SAT 98
[2022-05-27] MEDS: Docusate Sodium 100 MG CAPSULE PO (09:25)
[2022-05-27] MEDS: oxyCODONE HCl ER 10 MG TAB.ER.12H PO (09:25)
[2022-05-27] MEDS: Celecoxib 200 MG CAPSULE PO (09:25)
== END 2022-05-27 13:30 | disposition home health service (06) | DRG 326 ==
LOC: HO.SSSA 07:44 → HO.S3 17:12
PROVIDERS: Nurse Practitioner; Physician Assistant; Admitting Provider Orthopaedic Surgery; PCP Internal Medicine; Visit Provider Orthopaedic Surgery
PROC: 0SRD0JA Replacement of Left Knee Joint with Synthetic Substitute, Uncemented, Open Approach (ICD-10-PCS; CPT 27447; principal; 2022-05-25 09:40)
DX: M17.12 Unilateral primary osteoarthritis, left knee (principal); E11.40 Type 2 diabetes mellitus with diabetic neuropathy, unspecified; F31.9 Bipolar disorder, unspecified; E78.5 Hyperlipidemia, unspecified; Z79.4 Long term (current) use of insulin; Z79.84 Long term (current) use of oral hypoglycemic drugs; Z79.899 Other long term (current) drug therapy
CPT/HCPCS: 36415; 73560; 80048; 82947; 83036; 85014; 85018; 85025; 86850; 86900; 86901; 87635; 87640; 87641; 88305; 88311; 93005; 97110; 97116; 97162; 97530; C1776; J0131; J0690; J1100; J1170; J1650; J2250; J2370; J2405; J2550; J2795

== ENCOUNTER 2022-06-22 08:35 | Emergency (ER) | payer OTHER, SELFPAY | END 2022-06-22 12:48 | disposition left against medical advice (07) | PROVIDERS: Emergency Provider Emergency Medicine; PCP Internal Medicine | DX: M25.511 Pain in right shoulder (principal) ==

== ENCOUNTER 2022-06-23 08:00 | Outpatient (RCR) | payer OTHER, SELFPAY ==
--- NOTE | 2022-06-10 15:27 | MHC.PT.EP ---
[facility] [place] Office [place] Office [place] Office [address] Iona Duque [address] [phone] F: [phone] F: [phone] F: [phone] F: [phone] Physical Therapy Plan of Care Date of Evaluation: Date of Surgery: 05/25/22 Diagnosis: S/P LEFT TKA Assessment: 57 YO FEMALE REF TO PT S/P LEFT TKR ON 05/25/22- SHE RESIDES IN A 1 LEVEL HOME W A FRIEND AND IS CURRENTLY AMB W A W/WALKER . OBJECTIVE FINDINGS: LIMITED AROM Lt KNEE, TIGHT PSOAS MM RADHA AND DECR ANKLE DF RADHA; DECR STRENGTH IN PROX / LUMBOPELVIC AND Lt LE, POST-OP PAIN IN LEFT KNEE ,AND HEALING ANT Lt KNEE INCISION. FUNCTIONALLY, Pt IS AMB W A W/WALKER- SHE HAS COMPENSATORY GAIT, MODIFIED STAIR MGMT, DECR STANDING, SLEEPING, AND DECR NORI TO ADLs REQ Lt KNEE FLEX. Pt IS A VERY GOOD PT CANDIDATE TO GUIDE HER IN HER POST-OP TKR COURSE, ADDRESSING THE ABOVE FINDINGS, PAIN MGMT, AND MAXIMIZING FUNCTIONAL INDEPENDENCE. Frequency and Duration: The patient will be seen 2 x WK x 8 WKS Short Term Goals: *EDUC Pt RE SELF-MGMT OF POST-OP STATUS TO PROMOTE OPTIMAL HEALING AND REGAIN ROM LT KNEE *Pt WILL DEMON EFFICIENT GAIT MECHANICS W LEAST RESTRICTIVE ASST DEVICE ON LEVEL GROUND AND STAIRS *Pt'S LEFT KNEE PAIN WILL DECR TO 2-310 *Pt DEMON APPROP BED MOB/ POSITIONING/ SIT <-> STAND/ CAR TRANSFERS Stable Attendant Goals: *Pt WILL IMPROVE LUMBOPELVIC/ Lt LE STRENGTH TO AT LEAST 5-/5 *Pt DEMON Lt KNEE AROM 0* TO 120* *Pt WILL IMPROVE LUMBOPELVIC/ lt LE STRENGTH TO AT LEAST 5-/5 *Pt RESUME AT LEAST PLOF EVIDENT W IMPROVED LEFI SCORE (AT EVAL ) *Pt INDEP W PROGR HEP AND SELF-SX MGMT TECHN Treatment Plan: Modalities to reduce pain, spasms and effusion. Manual therapy to restore motion and function. Therapeutic exercise to improve strength and flexibility. Neuromuscular re-education for posture and balance. Therapeutic activities to return to functional activities of daily living. Electronically signed by: ROCIO ELDRIDGE PT Please sign and return to therapist. Thank you for your referral.
--- NOTE | 2022-09-03 08:50 | MHC.PT.DC ---
[facility] [place] Office [place] Office [place] Office [address] Iona Duque [address] [phone] F: [phone] F: [phone] F: [phone] F: [phone] Physical Therapy Discharge Report Diagnosis: S/P LEFT TKA Date of Surgery: 05/25/22 Date of Evaluation: 06/10/22 Date of Discharge: 07/20/22 Treatments to Date: 3 Cancellations to Date: No Shows to Date: Discharge Status: Patient Elected to Stop Discharge Summary: 06/23; Pt fatigued after strengthening exs. Decreased knee extension. Pt could use review with gait. 06/14/22: reviewed HEP. progressed flex/strength. AAROM flexion to 122, ext to 18 today. continue to progess as tolerated. ext is painful. 57 YO FEMALE REF TO PT S/P LEFT TKR ON 05/25/22- SHE RESIDES IN A 1 LEVEL HOME W A FRIEND AND IS CURRENTLY AMB W A W/WALKER . OBJECTIVE FINDINGS: LIMITED AROM Lt KNEE, TIGHT PSOAS MM RADHA AND DECR ANKLE DF RADHA; DECR STRENGTH IN PROX / LUMBOPELVIC AND Lt LE, POST-OP PAIN IN LEFT KNEE ,AND HEALING ANT Lt KNEE INCISION. FUNCTIONALLY, Pt IS AMB W A W/WALKER- SHE HAS COMPENSATORY GAIT, MODIFIED STAIR MGMT, DECR STANDING, SLEEPING, AND DECR NORI TO ADLs REQ Lt KNEE FLEX. Pt IS A VERY GOOD PT CANDIDATE TO GUIDE HER IN HER POST-OP TKR COURSE, ADDRESSING THE ABOVE FINDINGS, PAIN MGMT, AND MAXIMIZING FUNCTIONAL INDEPENDENCE. Electronically signed by: Virgilio Valente, PT Please sign and return to therapist. Thank you for your referral.
== END 2022-09-03 08:51 | disposition home or self-care (01) ==
LOC: HO.PTCHIC 08:00
PROVIDERS: Visit Provider Physician Assistant
DX: Z96.652 Presence of left artificial knee joint (principal)
CPT/HCPCS: 97110; 97162

== ENCOUNTER → 2022-07-08 08:55 | Outpatient (BNVA) | payer OTHER, SELFPAY | PROVIDERS: PCP Internal Medicine; Visit Provider Orthopaedic Surgery | DX: Z13.89 Encounter for screening for other disorder (principal) ==

== ENCOUNTER 2022-07-08 09:20 | Outpatient (REF) | payer OTHER, SELFPAY | END 2022-07-08 09:21 | disposition home or self-care (01) | LOC: HO.HAP 09:20 | PROVIDERS: Visit Provider Internal Medicine | DX: Z46.1 Encounter for fitting and adjustment of hearing aid (principal); H90.6 Mixed conductive and sensorineural hearing loss, bilateral | CPT/HCPCS: V5266 ==

== ENCOUNTER 2022-08-19 10:37 | Outpatient (REF) | payer OTHER, SELFPAY | END 2022-08-19 10:38 | disposition home or self-care (01) | LOC: HO.HAP 10:37 | PROVIDERS: Visit Provider Internal Medicine | DX: Z46.1 Encounter for fitting and adjustment of hearing aid (principal); H90.3 Sensorineural hearing loss, bilateral | CPT/HCPCS: V5266 ==

== ENCOUNTER → 2022-08-23 08:10 | Outpatient (BNVA) | payer OTHER, SELFPAY | PROVIDERS: PCP Internal Medicine; Visit Provider Orthopaedic Surgery | DX: Z13.89 Encounter for screening for other disorder (principal) ==

== ENCOUNTER 2022-10-18 11:07 | Outpatient (REF) | payer OTHER, SELFPAY | END 2022-10-18 11:08 | disposition home or self-care (01) | LOC: HO.HAP 11:07 | PROVIDERS: Visit Provider Internal Medicine | DX: Z46.1 Encounter for fitting and adjustment of hearing aid (principal); H90.6 Mixed conductive and sensorineural hearing loss, bilateral | CPT/HCPCS: V5266 ==

== ENCOUNTER 2022-11-23 12:33 | Outpatient (REF) | payer OTHER, SELFPAY | END 2022-11-23 12:34 | disposition home or self-care (01) | LOC: HO.HAP 12:33 | PROVIDERS: Visit Provider Internal Medicine | DX: Z46.1 Encounter for fitting and adjustment of hearing aid (principal); H90.6 Mixed conductive and sensorineural hearing loss, bilateral | CPT/HCPCS: V5266 ==

== ENCOUNTER 2022-12-10 09:31 | Outpatient (REF) | payer OTHER, SELFPAY ==
--- NOTE | ~2022-12-10 | MM_ITS ---
EXAMINATION: MM SCREENING DIGITAL BREAST TOMOSYNTHESIS, BILATERAL CLINICAL INFORMATION: Screening. Asymptomatic. The lifetime risk of breast cancer based on the Tyrer-Cuzick Model is 7%. COMPARISON: Mammography: 10/23/2021, 09/09/2020, 09/03/2019 TECHNIQUE: Digital breast tomosynthesis is performed in both the craniocaudal and mediolateral oblique views along with computer-aided detection (CAD). Synthesized 2D images are generated from the tomosynthesis. Additional bilateral CC views are provided. FINDINGS: The breasts are almost entirely fatty (ACR BI-RADS breast composition Category a). Background stromal markings are normal. No developing density or architectural abnormality. There are no significant masses, abnormal calcifications, or other abnormalities. The axilla and skin contours are unremarkable. MM/MM tomosynthesis screening BI IMPRESSION: No mammographic evidence of malignancy. ASSESSMENT: BI-RADS 1: Negative RECOMMENDATION: Routine annual mammography screening. This patient's information was entered into a reminder system with a target due date for their next mammogram.
== END 2022-12-10 09:32 | disposition home or self-care (01) ==
LOC: HO.MAMMO 09:31
PROVIDERS: PCP Internal Medicine; Visit Provider Internal Medicine
DX: Z12.31 Encounter for screening mammogram for malignant neoplasm of breast (principal)
CPT/HCPCS: 77063; 77067

== ENCOUNTER 2023-01-11 09:18 | Outpatient (REF) | payer OTHER, SELFPAY | END 2023-01-11 09:19 | disposition home or self-care (01) | LOC: HO.HAP 09:18 | PROVIDERS: Visit Provider Internal Medicine | DX: Z46.1 Encounter for fitting and adjustment of hearing aid (principal); H90.6 Mixed conductive and sensorineural hearing loss, bilateral | CPT/HCPCS: V5266 ==

== ENCOUNTER 2023-02-24 11:13 | Outpatient (REF) | payer OTHER, SELFPAY | END 2023-02-24 11:14 | disposition home or self-care (01) | LOC: HO.HAP 11:13 | PROVIDERS: Visit Provider Internal Medicine | DX: Z46.1 Encounter for fitting and adjustment of hearing aid (principal); H90.6 Mixed conductive and sensorineural hearing loss, bilateral | CPT/HCPCS: V5266 ==

== ENCOUNTER 2023-04-06 11:48 | Outpatient (REF) | payer OTHER, SELFPAY | END 2023-04-06 11:49 | disposition home or self-care (01) | LOC: HO.HAP 11:48 | PROVIDERS: Visit Provider Internal Medicine | DX: H90.6 Mixed conductive and sensorineural hearing loss, bilateral (principal); Z46.1 Encounter for fitting and adjustment of hearing aid | CPT/HCPCS: V5266 ==

== ENCOUNTER 2023-04-06 11:56 | Outpatient (AMB) | payer OTHER, SELFPAY ==
--- NOTE | 2023-04-06 12:38 | MHC.PC.OV ---
Vital Signs 04/06/23 12:39 Height 5 ft 7 in Weight 259 lb BMI 40.6 BP 124/72 Blood Pressure Location Lt brachial Position Sitting Pulse 80 Pulse Source Pulse Oximeter Pulse Oximetry (%) 98 Oxygen Delivery Method Room Air Intake Visit Reasons: Med follow up+ NEEDS PHQ9/THRIVE Allergies lurasidone [From LATUDA] Allergy (Severe, Verified 04/06/23 12:39) SEVERE HIGH BLOOD SUGARS Tobacco use date assessed: 04/06/23 Dental Screening Dental Screen Date: 04/06/23 Did you have a dental visit in the last 12 months?: No Did you have a dental problem in the last 6 months where you did not have access to dental care?: No Was dental information given to patient?: No HPI Med follow up+ NEEDS PHQ9/THRIVE HPI Details 58-year-old obese female with diabetes mellitus GERD chronic kidney disease obstructive sleep apnea hypertension hypercholesterolemia coming in for follow-up. Last seen in August 2021. Patient is here for follow-up mammogram is up-to-date impaired patient had a left TKA done in April 2022. Urgent center R shoulder pain - sent for PT [facility] Medical History (Updated 04/06/23 @ 13:11 by Diamond Velasquez MD) Preoperative cardiovascular examination Preop examination Leg pain Bilateral calf pain Precordial chest pain Abnormal stress test Chest pain Diabetes type 2, controlled Anxiety COVID-19 vaccination declined Hard of hearing Hearing loss in left ear Tear of meniscus of left knee Cataract Osteoarthritis, knee Interstitial cystitis CKD stage 3 due to type 2 diabetes mellitus GERD (gastroesophageal reflux disease) Bipolar disorder ROD (obstructive sleep apnea) Morbid obesity Dyslipidemia Hypertension Diabetic polyneuropathy associated with type 2 diabetes mellitus 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 mellitus care home (current) use of insulin Surgical History (Updated 04/06/23 @ 13:01 by Diamond Velasquez MD) Hx of cystoscopy History of esophagogastroduodenoscopy (EGD) History of cardiac catheterization (~10/2020) History of open reduction and internal fixation (ORIF) procedure History of arthroplasty of right knee History of tonsillectomy History of bladder suspension procedure Hx of tubal ligation History of hernia surgery Family History (Updated 04/06/23 @ 12:40 by Sandra Lieberman CMA) Father Brain tumor Mother CVA (cerebral vascular accident) Thyroid disease Hypertension Depression Daughter Substance abuse Maternal Grandfather CVA (cerebral vascular accident) Maternal Grandmother Diabetes Social History Household Members: None Housing: Apartment Are you a primary care assistant to a significant other at home: No Do you presently have visiting nurse or other home services: No Alcohol intake: never Patient Tobacco Use Status: Former Tobacco user Quit Date: 2014 Tobacco use type: Cigarette Years Smoked: 35 e-Cigarette/Vaping Use: Never Used Second Hand Smoke Exposure: No Advance Directives Date on File: 04/01/20 service: No Current occupational status: unemployed Cognitive needs: No Hearing needs: Yes (hearing aides) Vision needs: No Questionnaire PHQ-9 Over the last 2 weeks, how often have you been bothered by any of the following problems? 1. Little interest or pleasure in doing things: several days 2. Feeling down, depressed, or hopeless: several days 3. Trouble falling or staying asleep, or sleeping too much: several days 4. Feeling tired or having little energy: several days 5. Poor appetite or overeating: several days 6. Feeling bad about yourself - or that you are a failure or have let yourself or your family down: several days 7. Trouble concentrating on things, such as reading the newspaper or watching television: several days 8. Moving or speaking so slowly that other people could have noticed. Or the opposite - being so fidgety or restless that you have been moving around a lot more than usual: not at all 9. Thoughts that you would be better off or of hurting yourself in some way: several days Total score: 8 Depression Screening Interpretation: Positive Depression Screening Done: Yes Source: Developed by Drs. Brennen Sánchez, Fernanda Laird, Glenn Thapa and colleagues, with an educational juan f from [employer]. Thrive Questionnaire Date Thrive assessed: 04/06/23 I am a: Patient What is your living situation today?: I have a steady place to live Within the past 12 months, did the food you bought not last and you didn't have the money to get more?: Never true Within the past 12 months, did you worry whether your food would run out before you got money to buy more?: Never true Do you have trouble paying for medicines?: No Do you have trouble getting transportation to medical appointments?: No Do you have trouble paying your heating and electricity bill?: No Do you have trouble taking care of your child, family member or friend?: No Do you have trouble with day-to-day activities such as bathing, preparing meals, shopping, managing finances, etc.?: No Are you currently unemployed and looking for a job?: No Are you interested in more education?: No Currently or been in a relationship where the following occur: no concerns reported AUDIT C Alcohol Use Questionnaire (AUDIT-C) 1. How often do you have a drink containing alcohol?: Never 2. How many drinks containing alcohol do you have on a typical day when you are drinking?: 1 or 2 (0) 3. How often do you have six or more drinks on one occasion?: Never Total Score: 0 JUANPABLO-7 AMB Questionnaire JUANPABLO-7 Date JUANPABLO - 7 assessed: 04/06/23 Feeling nervous, anxious, or on edge: 2 = More than half the days Not being able to stop or control worryin = Several days Worrying too much about different things: 1 = Several days Trouble relaxin = More than half the days Being so restless that it is hard to sit still: 2 = More than half the days Becoming easily annoyed or irritable: 1 = Several days Feeling afraid as if something awful might happen: 1 = Several days Total JUANPABLO-7 score (0-4 normal; 5-9 mild; 10-14 moderate; 15-21 severe): 10 Source: Developed by Drs. Brennen Sánchez, Fernanda Laird, Glenn Thapa and colleagues, with an educational juan f from [employer]. Physical exam (Primary Care) Vital Signs: Last Vital Signs Pulse 80 04/06/23 12:39 BP 124/72 04/06/23 12:39 Pulse Ox 98 04/06/23 12:39 Oxygen Delivery Method Room Air 04/06/23 12:39 BMI result Body Mass Index 40.6 Tobacco/Smoking Status: Tobacco use Status Tobacco use date assessed 04/06/23 04/06/23 12:40 Patient Tobacco Use Status Former Tobacco user 04/06/23 12:40 Tobacco use type Cigarette 04/06/23 12:40 e-Cigarette/Vaping Use Never Used 04/06/23 12:40 PHQ-9: PHQ-9 Score PHQ-9: Total score 8 04/06/23 12:58 Depression Screening Interpretation: Positive Thrive Assessment: Date of Thrive Assessment Date Thrive assessed 04/06/23 04/06/23 12:40 Currently or been in a relationship where the following occur: no concerns reported Const General: alert; No acute distress Eyes Conjunctivae: conjunctivae normal Resp Auscultation: clear to auscultation bilaterally Cardio Rate: regular rate Rhythm: regular rhythm GI Inspection: Yes normal to inspection Extrem General: Yes normal to inspection and No edema Office Procedures Flu Questionnaire Does the patient have a severe egg allergy?: No Does the patient have severe life threatening allergies?: No Does the patient have a fever or illness today?: No Has the patient ever had Guillain-Wallace Syndrome?: No Has the patient ever had any past reaction to a flu shot?: No Results AMB Hemoglobin A1c AMB Hemoglobin A1c 8.9 % Last Edit by Sandra Lieberman CMA on 04/06/23 13:07 Immunizations flu vacc [id number] 6mos up(PF) 60 mcg(15 mcgx4)/0.5 mL IM syringe Performing Provider: Diamond Velasquez MD [facility] Administered by: Sandra Lieberman CMA on 04/06/23 13:01 Dose Route Admin Location Dispensed Lot Number Expiration Date NDC Clipper Operator 0.5 mL IM Left Deltoid 0.5 mL [id number] 12/25/23 77739-056-44 [employer] VIS Given Date VIS Provided VIS Publication Date 04/06/23 Single Vaccine 21 Eligibility Eligibility Date Funding Source Not [facility] Eligible 04/06/23 Private Assessment and Plan Assessment & Plan (1) Type 2 diabetes mellitus with hyperglycemia: Comment: eye and lasik Code(s): E11.65 - Type 2 diabetes mellitus with hyperglycemia Qualifiers: Diabetes mellitus intermediate project manager insulin use: with care home use Qualified Code(s): E11.65 - Type 2 diabetes mellitus with hyperglycemia; Z79.4 - care home (current) use of insulin Plan: Decrease the amount of carbohydrate intake, pasta, bread, rice and potatoes are all sugar and that is aside from all the sweet stuff, remember that fruits are good but they are Sweet also. Hemoglobin A1c goal of less than 6.5 patient is on metformin 500 mg once a day Paulette Skinner (2) Obesity due to excess calories: Code(s): E66.09 - Other obesity due to excess calories Qualifiers: Body mass index: BMI 37.0-37.9 Obesity classification: adult class 2 (BMI 35 - 39.9) Serious obesity comorbidity presence: with serious comorbidity Qualified Code(s): E66.01 - Morbid (severe) obesity due to excess calories; Z68.37 - Body mass index [BMI] 37.0-37.9, adult Plan: Diet and exercise (3) GERD (gastroesophageal reflux disease): Code(s): K21.9 - Gastro-esophageal reflux disease without esophagitis Qualifiers: Esophagitis presence: without esophagitis Qualified Code(s): K21.9 - Gastro-esophageal reflux disease without esophagitis Plan: Avoid the foods that causes that usually spicy foods, tomato products, juices, coffee, soda and foods that your sensitive to. After eating do not lie down, allow 3-4 hours before in lie down. And keep the head of bed above 30 degrees to avoid the acid from going up. (4) Dyslipidemia: Code(s): E78.5 - Hyperlipidemia, unspecified Plan: Avoid fried foods, chicken skin, eggs, butter margarine, pastries and meat. Be it pork or beef they have a lot of cholesterol LDL goal of less than 100 and triglyceride of less than 150 (5) Hypertension: Code(s): I10 - Essential (primary) hypertension Qualifiers: Hypertension type: essential hypertension Qualified Code(s): I10 - Essential (primary) hypertension Plan: Continue with blood pressure medication. Decrease salt intake and exercise patient on lisinopril 2.5 mg once a day (6) Bipolar disorder: Comment: [facility] counselling once a week (02/2021) Code(s): F31.9 - Bipolar disorder, unspecified Qualifiers: Active/Remission status: currently active Current bipolar episode type: mixed Current episode severity: moderate Qualified Code(s): F31.62 - Bipolar disorder, current episode mixed, moderate Plan: Continue with counseling and therapy (7) CKD stage 3 due to type 2 diabetes mellitus: Code(s): E11.22 - Type 2 diabetes mellitus with diabetic chronic kidney disease; N18.30 - Chronic kidney disease, stage 3 unspecified Plan: Keep well hydrated avoid NSAIDs (8) Status post total knee replacement, left: Comment: 04/2022 Code(s): Z96.652 - Presence of left artificial knee joint (9) Anemia: Code(s): D64.9 - Anemia, unspecified (10) Colon cancer screening: Code(s): Z12.11 - Encounter for screening for malignant neoplasm of colon (11) Cervical cancer screening declined: Code(s): Z53.20 - Procedure and treatment not carried out because of patient's decision for unspecified reasons Orders: Orders Ferritin Today D64.9 - Anemia, unspecified IRON PROFILE Today D64.9 - Anemia, unspecified AMB Hemoglobin A1c Today Z13.9 - Encounter for screening, unspecified Influenza [id number] Immunization Today Z23 - Encounter for immunization Reticulocyte Count Today D64.9 - Anemia, unspecified Referrals Cologuard Test Z12.11 - Encounter for screening for malignant neoplasm of colon, Z12.12 - Encounter for screening for malignant neoplasm of rectum Medical Weight Management Referral E66.01 - Morbid (severe) obesity due to excess calories, Z68.37 - Body mass index [BMI] 37.0-37.9, adult Medications: Refilled folic acid 1 mg PO DAILY 90 tabs 3RF Z12.11 - Encounter for screening for malignant neoplasm of colon pen needle, diabetic (BD Shelly 2nd Gen Pen Needle) 5 times a day 400 ea 4RF E11.65 - Type 2 diabetes mellitus with hyperglycemia atorvastatin 20 mg PO DAILY 90 tabs 2RF E78.5 - Hyperlipidemia, unspecified Coding Level of Care Code Est Pt Level 4 (82649) Diagnoses Type 2 diabetes mellitus with hyperglycemia, with long-term current use of insulin E11.65; Z79.4 Diabetes mellitus intermediate project manager insulin use: with care home use Class 2 severe obesity due to excess calories with serious comorbidity and body mass index (BMI) of 37.0 to 37.9 in adult E66.01; Z68.37 Body mass index: BMI 37.0-37.9 Obesity classification: adult class 2 (BMI 35 - 39.9) Serious obesity comorbidity presence: with serious comorbidity Gastroesophageal reflux disease without esophagitis K21.9 Esophagitis presence: without esophagitis Dyslipidemia E78.5 Essential hypertension I10 Hypertension type: essential hypertension Bipolar disorder, current episode mixed, moderate F31.62 Active/Remission status: currently active Current bipolar episode type: mixed Current episode severity: moderate CKD stage 3 due to type 2 diabetes mellitus E11.22; N18.30 Status post total knee replacement, left Z96.652 Anemia D64.9 Colon cancer screening Z12.11 Cervical cancer screening declined Z53.20
[2023-04-06 12:39] VITALS: BP 124/72; PULSE 80; O2SAT 98; BMI 40.6
== END 2023-04-06 13:17 | disposition home or self-care (01) ==
PROVIDERS: PCP Internal Medicine; Visit Provider Internal Medicine
DX: Z23 Encounter for immunization (principal); E11.65 Type 2 diabetes mellitus with hyperglycemia
CPT/HCPCS: 83036; 90471; 90686; 99214

== ENCOUNTER 2023-04-06 13:29 | Outpatient (REF) | payer OTHER, SELFPAY ==
[2023-04-06 13:45] LABS: MANUAL DIFF FLAG NO
[2023-04-06 14:37] LABS: Basophils Absolute Auto 0.1 X10*3/uL (0.0-0.2); Basophils Percent Auto 1.4 % (0-2); Eosinophils Absolute Auto 0.4 X10*3/uL (0.0-0.4); Eosinophils Percent Auto 6.4 % (0-4); Hematocrit 41.1 % (37.0-47.0); Hemoglobin 13.9 g/dl (12.0-16.0); Imm Gran Abs Auto 0.02 X10*3/uL (0.00-0.03); Imm Gran Pct Auto 0.3 % (0.0-0.4); Immature Retic Fraction 12.1 % (3.0-15.9); Lymphocytes Absolute Auto 1.7 X10*3/uL (1.2-4.9); Lymphocytes Percent Auto 27.3 % (20-40); Mean Corpuscular HGB Conc 33.8 g/dl (31.0-35.0); Mean Corpuscular Hemoglobin 29.5 pg (27.0-33.0); Mean Corpuscular Volume 87.3 fL (80.0-98.0); Mean Platelet Volume 10.5 fL (9.4-12.3); Monocytes Absolute Auto 0.6 X10*3/uL (0.1-1.2); Monocytes Percent Auto 9.7 % (2-11); Neutrophils Absolute Auto 3.5 x10*3/uL (2.0-8.3); Neutrophils Percent Auto 54.9 % (45-73); Platelet Count 287 X10*3/uL (160-400); Red Blood Count 4.71 X10*6/uL (4.20-5.50); Red Cell Distribution Width 13.2 % (11.0-16.0); Retic HGB Equivalent 34.2 pg (30.0-35.0); Reticulocyte Percent 2.2 % (0.5-1.8); Reticulocytes Absolute 0.103 X10*6/uL (0.026-0.095); White Blood Count 6.3 X10*3/uL (4.8-10.8)
== END 2023-04-06 13:30 | disposition home or self-care (01) ==
LOC: HO.LAB 13:29
PROVIDERS: PCP Internal Medicine; Visit Provider Internal Medicine
DX: E11.65 Type 2 diabetes mellitus with hyperglycemia (principal); D64.9 Anemia, unspecified; E78.00 Pure hypercholesterolemia, unspecified; Z79.4 Long term (current) use of insulin
CPT/HCPCS: 36415; 80053; 80061; 82043; 82306; 82570; 82607; 82728; 82746; 83036; 83540; 84439; 84443; 85025; 85045

== ENCOUNTER → 2023-04-20 11:11 | Outpatient (BNVA) | payer OTHER, SELFPAY | PROVIDERS: PCP Internal Medicine; Visit Provider Physician Assistant ==

== ENCOUNTER 2023-05-12 08:18 | Outpatient (REF) | payer OTHER, SELFPAY ==
--- NOTE | ~2023-05-12 | XR_ITS ---
EXAMINATION: XR ELBOW, LEFT CLINICAL INFORMATION: Pain. COMPARISON: None available. TECHNIQUE: AP, lateral, and oblique views of the left elbow. FINDINGS: The bones and soft tissues are normal. No fracture or joint effusion. Alignment is anatomic. Joint spaces are maintained. XR/XR elbow LT min 3V IMPRESSION: Normal left elbow.
== END 2023-05-12 08:19 | disposition home or self-care (01) ==
LOC: HO.HOSX 08:18
PROVIDERS: Visit Provider Physician Assistant
DX: M77.02 Medial epicondylitis, left elbow (principal)
CPT/HCPCS: 73080; 99212

== ENCOUNTER 2023-05-12 10:07 | Outpatient (AMB) | payer OTHER, SELFPAY ==
--- NOTE | 2023-05-12 10:13 | A.OFFVIS_ITS ---
Intake Intake Visit Reasons: NewProb- Lt Elbow pain Intake Note: Tona madrigal 58 year old left hand dominant female presents today for an evaluation of left elbow. Patient reports pain in elbow has been present for quite some time however the past 2 months her pain has gotten worse. Denies injury, numbness or tingling. Currently her pain radiates down her arm to her fingers. She was given an elbow brace that provided her relief until recently. She does use an priscila bandage at night that helps at times. No other tx. Allergies lurasidone [From LATUDA] Allergy (Severe, Verified 05/12/23 10:20) SEVERE HIGH BLOOD SUGARS HPI NewProb- Lt Elbow pain HPI Details 58-year-old left hand dominant female wh o presents to the office today for evaluation of left elbow pain for more than 3 months but has been worsening for the past 2 months. She states she has pain in her elbow which radiates down to her arm and fingers. She uses an priscila bandage at night which provides her occasional relief. She was given an elbow brace which provided her relief until recently. She denies numbness, tingling or any recent injury and has not had any other treatment. [facility] Medical History (Updated 05/12/23 @ 10:27 by Josh Palumbo PA-C) Preoperative cardiovascular examination Preop examination Leg pain Bilateral calf pain Precordial chest pain Abnormal stress test Chest pain Diabetes type 2, controlled Anxiety COVID-19 vaccination declined Hard of hearing Hearing loss in left ear Tear of meniscus of left knee Cataract Osteoarthritis, knee Interstitial cystitis CKD stage 3 due to type 2 diabetes mellitus GERD (gastroesophageal reflux disease) Bipolar disorder ROD (obstructive sleep apnea) Morbid obesity Dyslipidemia Hypertension Diabetic polyneuropathy associated with type 2 diabetes mellitus 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 mellitus half-way (current) use of insulin Surgical History Hx of cystoscopy History of esophagogastroduodenoscopy (EGD) History of cardiac catheterization (~10/2020) History of open reduction and internal fixation (ORIF) procedure History of arthroplasty of right knee History of tonsillectomy History of bladder suspension procedure Hx of tubal ligation History of hernia surgery Family History (Updated 04/06/23 @ 12:40 by Sandra Lieberman CMA) Father Brain tumor Mother CVA (cerebral vascular accident) Thyroid disease Hypertension Depression Daughter Substance abuse Maternal Grandfather CVA (cerebral vascular accident) Maternal Grandmother Diabetes Social History (Updated 05/12/23 @ 10:14 by Maritza Regan [facility]) Household Members: None Housing: Apartment Are you a primary med care manager to a significant other at home: No Do you presently have visiting nurse or other home services: No Alcohol intake: never Patient Tobacco Use Status: Former Tobacco user Quit Date: 2014 Tobacco use type: Cigarette Years Smoked: 35 e-Cigarette/Vaping Use: Never Used Second Hand Smoke Exposure: No Advance Directives Date on File: 04/01/20 service: No Current occupational status: unemployed Current occupation: left hand dominant Cognitive needs: No Hearing needs: Yes (hearing aides) Vision needs: No Review of Systems Const All systems reviewed & are unremarkable except as noted in HPI and below Physical Exam Extrem Other: Left elbow: Skin intact. No erythema or swelling. ROM full without pain. Tenderness over the lateral epicondyle and pain with resisted wrist extension. NVI. Results Reviewed Results Reviewed: Xrays were obtained in the office today and personally reviewed by me of the left elbow are negative for acute or chronic abnormalities. Assessment & Plan Assessment & Plan (1) Medial epicondylitis, left elbow: Code(s): M77.02 - Medial epicondylitis, left elbow Plan We discussed options which include OT, NSAIDs and injections. The patient will defer on the injection today and proceed with OT and NSAIDs. He was also given an elbow brace in the office today. If symptoms persist, the patient will contact me for an injection, otherwise, PRN. Orders: Orders OT Evaluation and Treatment 05/12/23 M77.02 - Medial epicondylitis, left elbow XR elbow LT min 3V 05/12/23 M25.522 - Pain in left elbow Patient Instructions: Scribed for Josh Palumbo PA-C, by Aftab Macias medical aides teacher, on 05/12/2023 at 10:00 AM Josh LATHAM PA-C, have personally reviewed and agree with the information entered by the scribe. Coding Level of Care Code Est Pt Level 3 (87326) Diagnoses Medial epicondylitis, left elbow M77.02
== END 2023-05-12 10:36 | disposition home or self-care (01) ==
PROVIDERS: PCP Internal Medicine; Visit Provider Physician Assistant
DX: M77.02 Medial epicondylitis, left elbow (principal)
CPT/HCPCS: 99213

== ENCOUNTER 2023-05-27 10:36 | Outpatient (REF) | payer OTHER, SELFPAY | END 2023-05-27 10:37 | disposition home or self-care (01) | LOC: HO.HAP 10:36 | PROVIDERS: Visit Provider Internal Medicine | DX: Z46.1 Encounter for fitting and adjustment of hearing aid (principal); H90.6 Mixed conductive and sensorineural hearing loss, bilateral | CPT/HCPCS: V5266 ==

== ENCOUNTER 2023-05-27 11:04 | Outpatient (AMB) | payer OTHER, SELFPAY ==
--- NOTE | 2023-05-27 11:07 | A.OFFVIS_ITS ---
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 40.9 Allergies lurasidone [From LATUDA] Allergy (Severe, Verified 05/27/23 12:21) SEVERE HIGH BLOOD SUGARS Medication List - Last Reconciled 05/27/23 by Juan Alberto Fernando MD ascorbic acid (vitamin C) 500 mg PO BID aspirin (Bacilio Low Dose Aspirin) 81 mg PO DAILY atorvastatin 20 mg PO DAILY bupropion HCl 300 mg PO QAM buspirone 30 mg PO BID clonazepam 1 mg PO BEDTIME PRN clonidine HCl 0.1 mg PO BEDTIME fenofibrate 160 mg PO DAILY ferrous sulfate 325 mg PO BID folic acid 1 mg PO DAILY insulin aspart U-100 (Novolog FlexPen U-100 Insulin aspart) 3 units (0.03 mL) subcut TID 30 days insulin glargine (Lantus Solostar U-100 Insulin) 30 units (0.3 mL) subcut BEDTIME 30 days lamotrigine 150 mg PO BID lisinopril 2.5 mg PO DAILY 90 days metformin 500 mg PO QAM omeprazole 20 mg PO DAILY paroxetine HCl 10 mg PO DAILY pen needle, diabetic (BD Shelly 2nd Gen Pen Needle) 5 times a day HPI HPI Comments History of Present Illness Details Previous weight loss efforts: [facility] [place] Wakes up: 8am, sleeps: 11pm Breakfast: 8.30am (toast) Lunch: skips Dinner: 5pm (chicken) snack: 1pm (crackers), 9pm (popcorn) Exercise: none Fluids: Coffee: 2 cups/day with cream/sugar, tea/juice/soda/ETOH: none PFSH Medical History (Updated 05/12/23 @ 10:27 by Josh Palumbo PA-C) Preoperative cardiovascular examination Preop examination Leg pain Bilateral calf pain Precordial chest pain Abnormal stress test Chest pain Diabetes type 2, controlled Anxiety COVID-19 vaccination declined Hard of hearing Hearing loss in left ear Tear of meniscus of left knee Cataract Osteoarthritis, knee Interstitial cystitis CKD stage 3 due to type 2 diabetes mellitus GERD (gastroesophageal reflux disease) Bipolar disorder ROD (obstructive sleep apnea) Morbid obesity Dyslipidemia Hypertension Diabetic polyneuropathy associated with type 2 diabetes mellitus 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 mellitus senior living (current) use of insulin Surgical History Hx of cystoscopy History of esophagogastroduodenoscopy (EGD) History of cardiac catheterization (~10/2020) History of open reduction and internal fixation (ORIF) procedure History of arthroplasty of right knee History of tonsillectomy History of bladder suspension procedure Hx of tubal ligation History of hernia surgery Family History Father Brain tumor Mother CVA (cerebral vascular accident) Thyroid disease Hypertension Depression Daughter Substance abuse Maternal Grandfather CVA (cerebral vascular accident) Maternal Grandmother Diabetes Social History Household Members: None Housing: Apartment Are you a primary child care attendant to a significant other at home: No Do you presently have visiting nurse or other home services: No Alcohol intake: never Patient Tobacco Use Status: Former Tobacco user Quit Date: 2014 Tobacco use type: Cigarette Years Smoked: 35 e-Cigarette/Vaping Use: Never Used Second Hand Smoke Exposure: No Advance Directives Date on File: 04/01/20 service: No Current occupational status: unemployed Current occupation: left hand dominant Cognitive needs: No Hearing needs: Yes (hearing aides) Vision needs: No Physical Exam Vital Signs: Last Vital Signs Temp 98.2 F 05/27/23 11:14 Pulse 91 05/27/23 11:14 BP 145/67 H 05/27/23 11:14 Pulse Ox 94 05/27/23 11:14 Oxygen Delivery Method Room Air 05/27/23 11:14 BMI result Body Mass Index 40.2 GI Inspection: Yes normal to inspection (android body habitus), Yes incision (well healed) and Yes obesity Palpation (GI): Soft to palpation Extrem Right lower extremity: normal to inspection Left lower extremity: normal to inspection Assessment & Plan Assessment & Plan (1) Morbid obesity: Code(s): E66.01 - Morbid (severe) obesity due to excess calories Plan: 1.? Plan for lap sleeve gastrectomy. If diaphragmatic or ventral hernias are present at time of surgery, these will be repaired laparoscopically as well. Risks and complications were discussed in detail including possible conversion to an open procedure, anastomotic leak, bleeding requiring transfusion, small bowel obstruction, , DVT and pulmonary embolism, cardiac, or pulmonary complications, as custodial complications such as anastomotic ulcer, insufficient weight loss and vitamin deficiencies. I emphasized the importance of close follow-up, adherence to instructions and good communication. 2. Nutritional counseling. Start with 2 CELEBRATE REBUILD protein (buy at [facility] [employer]) shakes (ONE scoop EACH in 8oz low fat unsweetened almond milk each) at 9am-11am and 12m-2pm, 1 protein bar (CELEBRATE protein bars, buy at [facility] [employer]) at 3pm-5pm, dinner at 6pm (10 forks of protein and 10 forks of salad/vegetables) AND one more protein bar after dinner at 8pm-10pm. So you do 2 protein shakes, 2 protein bars and one meal per day. Meal to include lean meat (beef, fish, pork, turkey, chicken), or danish yogurt, or egg whites, or beans with a salad with olive oil and fruits (berries, pears, apples, kiwi). Avoid salt, breads, potatoes, rice, pasta, desserts. 3. Each shake would be drunk slowly, like coffee in a period of 2 hours. 4. Cut each bar in 4 pieces and eat each piece in 30min ?to make each bar last 2 hours. 5. I emphasized the importance of measuring accurately the food portion and measure it when serving the food in plate 6. The meal portions include 10 full-size forks of meat and 10 full-size forks of salad. You always eat the meat portion but you can replace up to 5 forks for salad/vegetables with rice, potatoes or pasta, or a fruit ?if you like. The less you do it the better weight loss will be. 7. One full-size fork is what it can be scooped on the fork without falling aside and not what can be bit with the fork. Use regular forks like those you find in a typical restaurant. 8.? Please send me weight measurements as soon as possible and then once a week. Always include your diet and exercise plan. 9. Please purchase a stationary bike at home and start at a resistance level of 4.0 Increase level by 1.0 every 3 min to a max level of 10.0. Stay at this level for 3 min and then return to level 4.0 and repeat same steps until 300 calories are burned. Goal is to burn 2000 calories per week on exercise 10.?Goal is to lose at least 1.5-2lbs per week 11. Goal to lose 10% of your weight before surgery, which is about 26lbs. Ultimate weight goal: 234lbs before surgery 12. Please follow the diet plan exactly without any change. If you don't like something about the plan or you feel hungry you need to communicate with me so I can help you revise the plan. You should not change the plan yourself. Orders: Orders Hemoglobin A1c Today E11.21 - Type 2 diabetes mellitus with diabetic nephropathy, E11.42 - Type 2 diabetes mellitus with diabetic polyneuropathy, E66.01 - Morbid (severe) obesity due to excess calories, E78.5 - Hyperlipidemia, unspecified, F31.9 - Bipolar disorder, unspecified, G47.33 - Obstructive sleep apnea (adult) (pediatric), I10 - Essential (primary) hypertension, I73.9 - Peripheral vascular disease, unspecified, K21.9 - Gastro-esophageal reflux disease without esophagitis H Pylori Breath Test Today E11.21 - Type 2 diabetes mellitus with diabetic nephropathy, E11.42 - Type 2 diabetes mellitus with diabetic polyneuropathy, E66.01 - Morbid (severe) obesity due to excess calories, E78.5 - Hyperlipidemia, unspecified, F31.9 - Bipolar disorder, unspecified, G47.33 - Obstructive sleep apnea (adult) (pediatric), I10 - Essential (primary) hypertension, I73.9 - Peripheral vascular disease, unspecified, K21.9 - Gastro-esophageal reflux disease without esophagitis Lipid Panel Today E11.21 - Type 2 diabetes mellitus with diabetic nephropathy, E11.42 - Type 2 diabetes mellitus with diabetic polyneuropathy, E66.01 - Morbid (severe) obesity due to excess calories, E78.5 - Hyperlipidemia, unspecified, F31.9 - Bipolar disorder, unspecified, G47.33 - Obstructive sleep apnea (adult) (pediatric), I10 - Essential (primary) hypertension, I73.9 - Peripheral vascular disease, unspecified, K21.9 - Gastro-esophageal reflux disease without esophagitis Comprehensive Met. Panel Today E11.21 - Type 2 diabetes mellitus with diabetic nephropathy, E11.42 - Type 2 diabetes mellitus with diabetic polyneuropathy, E66.01 - Morbid (severe) obesity due to excess calories, E78.5 - Hyperlipidemia, unspecified, F31.9 - Bipolar disorder, unspecified, G47.33 - Obstructive sleep apnea (adult) (pediatric), I10 - Essential (primary) hypertension, I73.9 - Peripheral vascular disease, unspecified, K21.9 - Gastro-esophageal reflux disease without esophagitis Vitamin B12 and Folate Today E11.21 - Type 2 diabetes mellitus with diabetic nephropathy, E11.42 - Type 2 diabetes mellitus with diabetic polyneuropathy, E66.01 - Morbid (severe) obesity due to excess calories, E78.5 - Hyperlipidemia, unspecified, F31.9 - Bipolar disorder, unspecified, G47.33 - Obstructive sleep apnea (adult) (pediatric), I10 - Essential (primary) hypertension, I73.9 - Peripheral vascular disease, unspecified, K21.9 - Gastro-esophageal reflux disease without esophagitis Zinc Today E11.21 - Type 2 diabetes mellitus with diabetic nephropathy, E11.42 - Type 2 diabetes mellitus with diabetic polyneuropathy, E66.01 - Morbid (severe) obesity due to excess calories, E78.5 - Hyperlipidemia, unspecified, F31.9 - Bipolar disorder, unspecified, G47.33 - Obstructive sleep apnea (adult) (pediatric), I10 - Essential (primary) hypertension, I73.9 - Peripheral vascular disease, unspecified, K21.9 - Gastro-esophageal reflux disease without esophagitis C Reactive Protein Today E11.21 - Type 2 diabetes mellitus with diabetic nephropathy, E11.42 - Type 2 diabetes mellitus with diabetic polyneuropathy, E66.01 - Morbid (severe) obesity due to excess calories, E78.5 - Hyperlipidemia, unspecified, F31.9 - Bipolar disorder, unspecified, G47.33 - Obstructive sleep apnea (adult) (pediatric), I10 - Essential (primary) hypertension, I73.9 - Peripheral vascular disease, unspecified, K21.9 - Gastro-esophageal reflux disease without esophagitis Vitamin A Today E11.21 - Type 2 diabetes mellitus with diabetic nephropathy, E11.42 - Type 2 diabetes mellitus with diabetic polyneuropathy, E66.01 - Morbid (severe) obesity due to excess calories, E78.5 - Hyperlipidemia, unspecified, F31.9 - Bipolar disorder, unspecified, G47.33 - Obstructive sleep apnea (adult) (pediatric), I10 - Essential (primary) hypertension, I73.9 - Peripheral vascular disease, unspecified, K21.9 - Gastro-esophageal reflux disease without esophagitis TSH reflex Free T4 Today E11.21 - Type 2 diabetes mellitus with diabetic nephropathy, E11.42 - Type 2 diabetes mellitus with diabetic polyneuropathy, E66.01 - Morbid (severe) obesity due to excess calories, E78.5 - Hyperlipidemia, unspecified, F31.9 - Bipolar disorder, unspecified, G47.33 - Obstructive sleep apnea (adult) (pediatric), I10 - Essential (primary) hypertension, I73.9 - Peripheral vascular disease, unspecified, K21.9 - Gastro-esophageal reflux disease without esophagitis Ferritin Today E11.21 - Type 2 diabetes mellitus with diabetic nephropathy, E11.42 - Type 2 diabetes mellitus with diabetic polyneuropathy, E66.01 - Morbid (severe) obesity due to excess calories, E78.5 - Hyperlipidemia, unspecified, F31.9 - Bipolar disorder, unspecified, G47.33 - Obstructive sleep apnea (adult) (pediatric), I10 - Essential (primary) hypertension, I73.9 - Peripheral vascular disease, unspecified, K21.9 - Gastro-esophageal reflux disease without esophagitis Vitamin D 25-OH Total Today E11.21 - Type 2 diabetes mellitus with diabetic nephropathy, E11.42 - Type 2 diabetes mellitus with diabetic polyneuropathy, E66.01 - Morbid (severe) obesity due to excess calories, E78.5 - Hyperlipidemia, unspecified, F31.9 - Bipolar disorder, unspecified, G47.33 - Obstructive sleep apnea (adult) (pediatric), I10 - Essential (primary) hypertension, I73.9 - Peripheral vascular disease, unspecified, K21.9 - Gastro-esophageal reflux disease without esophagitis ECG 12 lead EKG Today E11.21 - Type 2 diabetes mellitus with diabetic nephropathy, E11.42 - Type 2 diabetes mellitus with diabetic polyneuropathy, E66.01 - Morbid (severe) obesity due to excess calories, E78.5 - Hyperlipidemia, unspecified, F31.9 - Bipolar disorder, unspecified, G47.33 - Obstructive sleep apnea (adult) (pediatric), I10 - Essential (primary) hypertension, I73.9 - Peripheral vascular disease, unspecified, K21.9 - Gastro-esophageal reflux disease without esophagitis Insulin Today E11.21 - Type 2 diabetes mellitus with diabetic nephropathy, E11.42 - Type 2 diabetes mellitus with diabetic polyneuropathy, E66.01 - Morbid (severe) obesity due to excess calories, E78.5 - Hyperlipidemia, unspecified, F31.9 - Bipolar disorder, unspecified, G47.33 - Obstructive sleep apnea (adult) (pediatric), I10 - Essential (primary) hypertension, I73.9 - Peripheral vascular disease, unspecified, K21.9 - Gastro-esophageal reflux disease without esophagitis Complete Blood Count Auto Diff Today E11.21 - Type 2 diabetes mellitus with diabetic nephropathy, E11.42 - Type 2 diabetes mellitus with diabetic poly neuropathy, E66.01 - Morbid (severe) obesity due to excess calories, E78.5 - Hyperlipidemia, unspecified, F31.9 - Bipolar disorder, unspecified, G47.33 - Obstructive sleep apnea (adult) (pediatric), I10 - Essential (primary) hypertension, I73.9 - Peripheral vascular disease, unspecified, K21.9 - Gastro- esophageal reflux disease without esophagitis IRON PROFILE Today E11.21 - Type 2 diabetes mellitus with diabetic nephropathy, E11.42 - Type 2 diabetes mellitus with diabetic polyneuropathy, E66.01 - Morbid (severe) obesity due to excess calories, E78.5 - Hyperlipidemia, unspecified, F31.9 - Bipolar disorder, unspecified, G47.33 - Obstructive sleep apnea (adult) (pediatric), I10 - Essential (primary) hypertension, I73.9 - Peripheral vascular disease, unspecified, K21.9 - Gastro-esophageal reflux disease without esophagitis Vitamin B1 Today E11.21 - Type 2 diabetes mellitus with diabetic nephropathy, E11.42 - Type 2 diabetes mellitus with diabetic polyneuropathy, E66.01 - Morbid (severe) obesity due to excess calories, E78.5 - Hyperlipidemia, unspecified, F31.9 - Bipolar disorder, unspecified, G47.33 - Obstructive sleep apnea (adult) (pediatric), I10 - Essential (primary) hypertension, I73.9 - Peripheral vascular disease, unspecified, K21.9 - Gastro-esophageal reflux disease without esophagitis US abdomen comp w elastography Today E11.21 - Type 2 diabetes mellitus with diabetic nephropathy, E11.42 - Type 2 diabetes mellitus with diabetic polyneuropathy, E66.01 - Morbid (severe) obesity due to excess calories, E78.5 - Hyperlipidemia, unspecified, F31.9 - Bipolar disorder, unspecified, G47.33 - Obstructive sleep apnea (adult) (pediatric), I10 - Essential (primary) hypertension, I73.9 - Peripheral vascular disease, unspecified, K21.9 - Gastro- esophageal reflux disease without esophagitis XR chest 2V Today E11.21 - Type 2 diabetes mellitus with diabetic nephropathy, E 11.42 - Type 2 diabetes mellitus with diabetic polyneuropathy, E66.01 - Morbid (severe) obesity due to excess calories, E78.5 - Hyperlipidemia, unspecified, F31.9 - Bipolar disorder, unspecified, G47.33 - Obstructive sleep apnea (adult) (pediatric), I10 - Essential (primary) hypertension, I73.9 - Peripheral vascular disease, unspecified, K21.9 - Gastro-esophageal reflux disease without esophagitis FL upper GI w air Today E11.21 - Type 2 diabetes mellitus with diabetic nephropathy, E11.42 - Type 2 diabetes mellitus with diabetic polyneuropathy, E66.01 - Morbid (severe) obesity due to excess calories, E78.5 - Hyperlipidemia, unspecified, F31.9 - Bipolar disorder, unspecified, G47.33 - Obstructive sleep apnea (adult) (pediatric), I10 - Essential (primary) hypertension, I73.9 - Peripheral vascular disease, unspecified, K21.9 - Gastro-esophageal reflux disease without esophagitis Referrals Behavioral Health Referral E11.21 - Type 2 diabetes mellitus with diabetic nephropathy, E11.42 - Type 2 diabetes mellitus with diabetic polyneuropathy, E66.01 - Morbid (severe) obesity due to excess calories, E78.5 - Hyperlipidemia, unspecified, F31.9 - Bipolar disorder, unspecified, G47.33 - Obstructive sleep apnea (adult) (pediatric), I10 - Essential (primary) hypertension, I73.9 - Peripheral vascular disease, unspecified, K21.9 - Gastro-esophageal reflux disease without esophagitis Nutrition/Dietitian Referral E11.21 - Type 2 diabetes mellitus with diabetic nephropathy, E11.42 - Type 2 diabetes mellitus with diabetic polyneuropathy, E66.01 - Morbid (severe) obesity due to excess calories, E78.5 - Hyperlipidemia, unspecified, F31.9 - Bipolar disorder, unspecified, G47.33 - Obstructive sleep apnea (adult) (pediatric), I10 - Essential (primary) hypertension, I73.9 - Peripheral vascular disease, unspecified, K21.9 - Gastro-esophageal reflux disease without esophagitis Coding Level of Care Code New Pt Level 5 (30337) Diagnoses Morbid obesity E66.01 Time Spent (min) 60
[2023-05-27 11:14] VITALS: BP 145/67; PULSE 91; TEMP 36.8; O2SAT 94; BMI 40.2
== END 2023-05-27 12:32 | disposition home or self-care (01) ==
PROVIDERS: PCP Internal Medicine; Visit Provider Surgery
DX: E66.01 Morbid (severe) obesity due to excess calories (principal); Z68.41 Body mass index [BMI] 40.0-44.9, adult
CPT/HCPCS: 99205

== ENCOUNTER 2023-05-27 11:04 | Outpatient (REF) | payer OTHER, SELFPAY ==
--- NOTE | ~2023-05-27 | XR_ITS ---
EXAMINATION: XR CHEST 2 VIEWS CLINICAL INFORMATION: Type 2 diabetes mellitus with diabetic nephropathy. COMPARISON: Chest radiographs dated 01/06/2017. TECHNIQUE: Frontal and lateral views of the chest were obtained. FINDINGS: The heart, great vessels and mediastinum are normal. There is mild pulmonary vascular congestion, without overt pulmonary edema. The lungs show no focal infiltrate, effusion or pneumothorax. There is no acute osseous abnormality. XR/XR chest 2V IMPRESSION: 1. There is mild pulmonary vascular congestion, without overt pulmonary edema. 2. No focal infiltrate is seen.
[2023-05-27 12:50] LABS: MANUAL DIFF FLAG NO
--- NOTE | 2023-05-27 12:50 | ECG_ITS ---
Test Reason : dm Blood Pressure : / mmHG Vent. Rate : 083 BPM Atrial Rate : 083 BPM P-R Int : 200 ms QRS Dur : 094 ms QT Int : 380 ms P-R-T Axes : 023 -19 110 degrees QTc Int : 446 ms Normal sinus rhythm Left ventricular hypertrophy with repolarization abnormality ( R in aVL , [place] product ) Abnormal ECG When compared with ECG of 27-APR-2022 14:06, QRS duration has decreased Criteria for Anterior infarct are no longer Present Criteria for Inferior infarct are no longer Present Referred By: Juan Alberto Fernando Electronically Signed By:BAY GRIFFITH MD
[2023-05-27 13:41] LABS: Basophils Absolute Auto 0.1 X10*3/uL (0.0-0.2); Eosinophils Absolute Auto 0.5 X10*3/uL (0.0-0.4); Eosinophils Percent Auto 5.8 % (0-4); Hematocrit 42.4 % (37.0-47.0); Hemoglobin 14.6 g/dl (12.0-16.0); Imm Gran Abs Auto 0.04 X10*3/uL (0.00-0.03); Imm Gran Pct Auto 0.5 % (0.0-0.4); Lymphocytes Absolute Auto 1.6 X10*3/uL (1.2-4.9); Lymphocytes Percent Auto 19.8 % (20-40); Mean Corpuscular HGB Conc 34.4 g/dl (31.0-35.0); Mean Corpuscular Hemoglobin 29.6 pg (27.0-33.0); Mean Corpuscular Volume 85.8 fL (80.0-98.0); Monocytes Absolute Auto 0.6 X10*3/uL (0.1-1.2); Monocytes Percent Auto 7.6 % (2-11); Neutrophils Absolute Auto 5.2 x10*3/uL (2.0-8.3); Neutrophils Percent Auto 65.3 % (45-73); Platelet Count 267 X10*3/uL (160-400); Red Blood Count 4.94 X10*6/uL (4.20-5.50); Red Cell Distribution Width 13.2 % (11.0-16.0)
[2023-05-27 13:48] LABS: Estimated Average Glucose 194 mg/dL; Hemoglobin A1c % 8.4 % (<6.0)
[2023-05-27 14:41] LABS: Alanine Aminotransferase 29 U/L (0-31); Albumin Level 4.5 g/dL (3.5-5.0); Alkaline Phosphatase 62 U/L (39-117); Anion Gap 14 (12-20); Aspartate Amino Transferase 23 U/L (5-31); Bilirubin Total 0.6 mg/dL (0.0-1.0); Blood Urea Nitrogen 17 mg/dL (9-16); C Reactive Protein 0.57 mg/dL (< or = 0.50); Calcium 9.7 mg/dL (8.4-10.2); Carbon Dioxide 26 mmol/L (22-29); Chloride 105 mmol/L (96-108); Cholesterol 198 mg/dL (<200); Estimated Glomerular Filt Rate 43; Glucose Random 198 mg/dL (60-115); HDL Cholesterol 39 mg/dL (>40); Iron 71 mcg/dL (30-160); LDL Cholesterol Calculated 95 mg/dL (<100); Percent Iron Saturation 22 % (15-50); Potassium 3.9 mmol/L (3.3-5.1); Sodium 141 mmol/L (135-145); Total Iron Binding Capacity 329 mcg/dL (228-428); Total Protein 7.7 g/dL (6.5-8.0); Triglycerides 322 mg/dL (<150); Unsaturated Iron Binding 258 ug/dL
[2023-05-27 14:51] LABS: Ferritin 288 ng/mL (10-250); Insulin 36 uU/mL (2-29); TSH reflex Free T4 0.85 uIU/mL (0.32-4.0); Vitamin D 25-OH Total 45.9 ng/mL (>30)
[2023-05-27 14:55] LABS: Folate 14.6 ng/mL (> or = 4.0); Vitamin B12 501 pg/mL (200-900)
[2023-06-01 14:59] LABS: Vitamin B1 <6 nmol/L (8-30)
[2023-06-01 17:18] LABS: Vitamin A 87 mcg/dL (38-98)
[2023-06-01 17:44] LABS: Zinc 81 mcg/dL (60-130)
== END 2023-05-27 11:05 | disposition home or self-care (01) ==
LOC: HO.XRAY 11:04
PROVIDERS: PCP Internal Medicine; Visit Provider Surgery
DX: E11.21 Type 2 diabetes mellitus with diabetic nephropathy (principal); E11.42 Type 2 diabetes mellitus with diabetic polyneuropathy; I10 Essential (primary) hypertension; E78.5 Hyperlipidemia, unspecified; E66.01 Morbid (severe) obesity due to excess calories; G47.33 Obstructive sleep apnea (adult) (pediatric); F31.9 Bipolar disorder, unspecified; K21.9 Gastro-esophageal reflux disease without esophagitis; I73.9 Peripheral vascular disease, unspecified
CPT/HCPCS: 36415; 71046; 80053; 80061; 82306; 82607; 82728; 82746; 83036; 83525; 83540; 84425; 84443; 84590; 84630; 85025; 86140; 93005; 99202

== ENCOUNTER → 2023-05-27 12:50 | Outpatient (BNV) | payer OTHER, SELFPAY | PROVIDERS: PCP Internal Medicine; Visit Provider Internal Medicine Cardiovascular Disease | DX: R94.31 Abnormal electrocardiogram [ECG] [EKG] (principal) | CPT/HCPCS: 93010 ==

== ENCOUNTER 2023-06-08 10:41 | Outpatient (AMB) | payer OTHER, SELFPAY ==
--- NOTE | 2023-06-08 10:32 | A.OFFVIS_ITS ---
Intake Intake Visit Reasons: (TV) Initial Nutrition SWL Allergies lurasidone [From LATUDA] Allergy (Severe, Verified 05/27/23 12:21) SEVERE HIGH BLOOD SUGARS HPI Nutrition Presentation Details Reestablishing patient w CKD 3, DM on insulin and several meds for mental health Reason for consult elevated BMI Unstable SDH Reports transportation (Uses her daughter's car) and use of SNAP Diet Assmnt Details Likes the bars and shakes ; per surgeon, she is doing 1 bar and 2 shakes and a meal - chicken and canned vegetables. She really enjoys frozen vegetables as well. Educated about the hip program I get so frustrated by hunger that I end up crying . Shares that she deals with significant emotional eating. we talked about being patient with herself to make changes and also discussed being mindful of true hunger vs emotional as she wasn't very clear on this initially.; Reports she gets cravings, especially at nighttime. Dietary counseling reduction Who buys your food self Who prepares/cooks your food self Meal frequency regular: breakfast, lunch, dinner and snacks ( My downfall ) Lifestyle Emotional Eating Reports stress, depression, anxiety and comfort/relaxation Eating out 1-3 times/week Food frequency Dairy: daily, Fruit: daily, Vegetables: daily (canned vegetable ), Grains/pasta/breads/cereal (carbs): daily, Meats/poultry/fish (protein): daily (no red meat, or seafood ), Processed foods/meats: daily and Desserts/sweets: daily Diagnosis Nutrition problem #1 overweight/obesity As related to (etiology) #1 excess energy intake and physical inactivity As evidenced by (sign/symptom) #1 high BMI Monitoring/Goals Nutrition problem monitoring total energy intake, level of knowledge/skill, total PRO intake, total CHO intake and weight Outcome progress progressing Learning/Education Readiness to learn good Stages of change action Most Recent Diabetes Results: Microalb/Creat Ratio 170.5 ug/mg cr (<30) H 04/06/23 Cholesterol 198 mg/dL (<200) 05/27/23 HDL Cholesterol 39 mg/dL (>40) L 05/27/23 Triglycerides 322 mg/dL (<150) H 05/27/23 Creatinine 1.28 mg/dL (0.5-1.4) 05/27/23 Blood Urea Nitrogen 17 mg/dL (9-16) H 05/27/23 Sodium 141 mmol/L (135-145) 05/27/23 Potassium 3.9 mmol/L (3.3-5.1) 05/27/23 Chloride 105 mmol/L (96-108) 05/27/23 Carbon Dioxide 26 mmol/L (22-29) 05/27/23 Calcium 9.7 mg/dL (8.4-10.2) 05/27/23 AST 23 U/L (5-31) 05/27/23 ALT 29 U/L (0-31) 05/27/23 Total Protein 7.7 g/dL (6.5-8.0) 05/27/23 Albumin 4.5 g/dL (3.5-5.0) 05/27/23 [facility] Medical History (Updated 06/03/23 @ 20:53 by Juan Alberto Fernando MD) Preoperative cardiovascular examination Preop examination Leg pain Bilateral calf pain Precordial chest pain Abnormal stress test Chest pain Diabetes type 2, controlled Anxiety COVID-19 vaccination declined Hard of hearing Hearing loss in left ear Tear of meniscus of left knee Cataract Osteoarthritis, knee Interstitial cystitis CKD stage 3 due to type 2 diabetes mellitus GERD (gastroesophageal reflux disease) Bipolar disorder ROD (obstructive sleep apnea) Morbid obesity Dyslipidemia Hypertension Diabetic polyneuropathy associated with type 2 diabetes mellitus 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 mellitus snf (current) use of insulin Surgical History Hx of cystoscopy History of esophagogastroduodenoscopy (EGD) History of cardiac catheterization (~10/2020) History of open reduction and internal fixation (ORIF) procedure History of arthroplasty of right knee History of tonsillectomy History of bladder suspension procedure Hx of tubal ligation History of hernia surgery Family History Father Brain tumor Mother CVA (cerebral vascular accident) Thyroid disease Hypertension Depression Daughter Substance abuse Maternal Grandfather CVA (cerebral vascular accident) Maternal Grandmother Diabetes Social History Household Members: None Housing: Apartment Are you a primary neonatal intensive care unit nurse to a significant other at home: No Do you presently have visiting nurse or other home services: No Alcohol intake: never Patient Tobacco Use Status: Former Tobacco user Quit Date: 2014 Tobacco use type: Cigarette Years Smoked: 35 e-Cigarette/Vaping Use: Never Used Second Hand Smoke Exposure: No Advance Directives Date on File: 04/01/20 service: No Current occupational status: unemployed Current occupation: left hand dominant Cognitive needs: No Hearing needs: Yes (hearing aides) Vision needs: No Assessment & Plan Assessment & Plan (1) Morbid (severe) obesity due to excess calories: Code(s): E66.01 - Morbid (severe) obesity due to excess calories Plan pt will be seen again to review classes and assess dietary changes made Telehealth Telehealth Location of provider rendering services: practice address Location of patient: address on file Patient Identification confirmed using: Name, : Yes Telehealth method: voice only Patient verbally consented to treatment: Yes Patient verbally consented to billing insurance company: Yes Patient informed of any privacy concerns related to visit: Yes Minutes spent on Phone/Video with Pt.: 20 Coding Level of Care Code Nutr Indiv Intake (00087) Diagnoses Morbid (severe) obesity due to excess calories E66.01 Time Spent (min) 20
== END 2023-06-08 11:02 | disposition home or self-care (01) ==
LOC: HO.HBS 10:41
PROVIDERS: PCP Internal Medicine; Visit Provider Dietitian, Registered
DX: E66.01 Morbid (severe) obesity due to excess calories (principal)

== ENCOUNTER → 2023-06-08 10:41 | Outpatient (BNVA) | payer OTHER, SELFPAY | PROVIDERS: PCP Internal Medicine; Visit Provider Dietitian, Registered | DX: E66.01 Morbid (severe) obesity due to excess calories (principal) | CPT/HCPCS: 97802 ==

== ENCOUNTER 2023-06-17 08:26 | Outpatient (AMB) | payer OTHER, SELFPAY ==
--- NOTE | 2023-06-17 11:19 | A.OFFVIS_ITS ---
Intake VS Expanded 06/17/23 11:37 Height 5 ft 7 in Weight 257 lb BMI 40.2 Body Fat % 54.3 Body Fat Mass 139.5 Fat Free Mass 118.4 Visceral Fat Rating 21 Body Water % 31.3 Body Water Mass 80.4 Basal Metabolic Rate/Score 1,500 Intake Visit Reasons: TV Follow Up SWL - 1ST Allergies lurasidone [From LATUDA] Allergy (Severe, Verified 05/27/23 12:21) SEVERE HIGH BLOOD SUGARS HPI TV Follow Up SWL - 1ST HPI Details Start time: 11.09am, End time: 11.39am ?I spent 25 minutes speaking with the patient on the phone plus an additional 5 minutes reviewing and updating records for a total of 30 minutes HPI Comments History of Present Illness Details Overall weight loss: 3.6lbs, or 1.38% TBWL Is doing 2 Celebrate Rebuild protein shakes (2 scoops in 8oz almond milk), one Celebrate protein bar and one meal (unmeasured) Exercise: none PFSH Medical History (Updated 06/03/23 @ 20:53 by Juan Alberto Fernando MD) Preoperative cardiovascular examination Preop examination Leg pain Bilateral calf pain Precordial chest pain Abnormal stress test Chest pain Diabetes type 2, controlled Anxiety COVID-19 vaccination declined Hard of hearing Hearing loss in left ear Tear of meniscus of left knee Cataract Osteoarthritis, knee Interstitial cystitis CKD stage 3 due to type 2 diabetes mellitus GERD (gastroesophageal reflux disease) Bipolar disorder ROD (obstructive sleep apnea) Morbid obesity Dyslipidemia Hypertension Diabetic polyneuropathy associated with type 2 diabetes mellitus 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 mellitus group home (current) use of insulin Surgical History Hx of cystoscopy History of esophagogastroduodenoscopy (EGD) History of cardiac catheterization (~10/2020) History of open reduction and internal fixation (ORIF) procedure History of arthroplasty of right knee History of tonsillectomy History of bladder suspension procedure Hx of tubal ligation History of hernia surgery Family History Father Brain tumor Mother CVA (cerebral vascular accident) Thyroid disease Hypertension Depression Daughter Substance abuse Maternal Grandfather CVA (cerebral vascular accident) Maternal Grandmother Diabetes Social History (Reviewed 05/27/23 @ 11:11 by Isabelle Castellanos [facility]) Household Members: None Housing: Apartment Are you a primary critical care rn to a significant other at home: No Do you presently have visiting nurse or other home services: No Alcohol intake: never Patient Tobacco Use Status: Former Tobacco user Quit Date: 2014 Tobacco use type: Cigarette Years Smoked: 35 e-Cigarette/Vaping Use: Never Used Second Hand Smoke Exposure: No Advance Directives Date on File: 04/01/20 service: No Current occupational status: unemployed Current occupation: left hand dominant Cognitive needs: No Hearing needs: Yes (hearing aides) Vision needs: No Assessment & Plan Assessment & Plan (1) Morbid obesity: Code(s): E66.01 - Morbid (severe) obesity due to excess calories Plan: 1. Nutritional counseling. Start with 2 CELEBRATE REBUILD protein (buy at [facility] [employer]) shakes (ONE scoop EACH in 8oz low fat unsweetened almond milk each) at 9am-11am and 12m-2pm, 1 protein bar (CELEBRATE protein bars, buy at [facility]) at 3pm-5pm, dinner at 6pm (10 forks of protein and 10 forks of salad/vegetables) AND one more protein bar after dinner at 8pm-10pm. So you do 2 protein shakes, 2 protein bars and one meal per day. Meal to include lean meat (beef, fish, pork, turkey, chicken), or emirati yogurt, or egg whites, or beans with a salad with olive oil and fruits (berries, pears, apples, kiwi). Avoid salt, breads, potatoes, rice, pasta, desserts. 2. Each shake would be drunk slowly, like coffee in a period of 2 hours. 3. Cut each bar in 4 pieces and eat each piece in 30min ?to make each bar last 2 hours. 4. I emphasized the importance of measuring accurately the food portion and measure it when serving the food in plate 5. The meal portions include 10 full-size forks of meat and 10 full-size forks of salad. You always eat the meat portion but you can replace up to 5 forks for salad/vegetables with rice, potatoes or pasta, or a fruit ?if you like. The less you do it the better weight loss will be. 6. One full-size fork is what it can be scooped on the fork without falling aside and not what can be bit with the fork. Use regular forks like those you find in a typical restaurant. 7.? Please send me weight measurements as soon as possible and then once a week. Always include your diet and exercise plan. 8. Start stationary bike at home and start at a resistance level of 0.0 Increase level by 1.0 every 3 min to a max level of 6.0. Stay at this level for 3 min and then return to level 0.0 and repeat same steps until 300 calories are burned. do this daily. Goal is to burn 2000 calories per week on exercise Telehealth Telehealth Location of provider rendering services: practice address Location of patient: address on file Patient Identification confirmed using: Name, : Yes Telehealth method: voice only Patient verbally consented to treatment: Yes Patient verbally consented to billing insurance company: Yes Patient informed of any privacy concerns related to visit: Yes Minutes spent on Phone/Video with Pt.: 30 Coding Level of Care Code Tele Est Pt Level 4 (01882) Diagnoses Morbid obesity E66.01 Time Spent (min) 30
[2023-06-17 11:37] VITALS: BMI 40.2
== END 2023-06-17 11:40 | disposition home or self-care (01) ==
LOC: HO.HBS 08:26
PROVIDERS: PCP Internal Medicine; Visit Provider Surgery
DX: E66.01 Morbid (severe) obesity due to excess calories (principal)
CPT/HCPCS: 99214

== ENCOUNTER → 2023-06-17 08:26 | Outpatient (BNVA) | payer OTHER, SELFPAY | PROVIDERS: PCP Internal Medicine; Visit Provider Surgery ==

== ENCOUNTER 2023-06-22 06:00 | Day surgery (SDC) | payer OTHER, SELFPAY ==
--- NOTE | 2023-06-21 18:04 | MHC.SHP ---
Pre-Procedural Eval Section A Date of Service: 06/21/23 The patient is an INPATIENT: No The History & Physical has been completed within 30 days and I have reviewed it.: No Section B Chief Complaint: Morbid (severe) obesity due to excess calories Details of Present Illness: GERD Relevant Family History (Specify if Yes): No Relevant Social History: None Present Medications: None Medical History: No relevant PMH History of Previous Operations: No relevant previous surgery Allergies: Allergies Allergy/AdvReac Type Severity Reaction Status Date / Time lurasidone [From LATUDA] Allergy Severe SEVERE Verified 05/27/23 12:21 HIGH BLOOD SUGARS Review of Systems Sugical H&P ROS: Negative: Constitution, Cardiovascular, Respiratory, Neurological, Psychiatric, Hem-Onc, Allergic/Immunologic, Gastrointestinal, Genitourinary, Musculoskeletal, Integumentary, Endocrine and Eyes/Ears/Nose/Throat Exam Surgical H&P Exam: Normal: HEENT, Normal: Heart, Normal: Lungs, Normal: Extremities, Normal: Abdomen, Normal: Skin and Normal: Neurological Plan Diagnosis/Plan: Unchanged (EGD to assess for esophagitis. Risks for perforation and bleeding were discussed with patient. She is in agreement with the plan) I have reviewed the history and physical and performed a pertinent physical examination on my patient. No changes have occurred unless specified. Time Spent With Patient Time: Total time managing care of this patient today ____ minutes.
[2023-06-22 07:05] VITALS: BMI 41.9
[2023-06-22 07:14] VITALS: BP 129/77; PULSE 70; RESP 16; TEMP 36.8; O2SAT 93
[2023-06-22 07:19] LABS: Glucose, Whole Blood 166 mg/dL (60-115)
[2023-06-22] MEDS: Lactated Ringers 1,000 ML 80 ML IVCONT (07:21)
--- NOTE | 2023-06-22 07:23 | HO.ANESPROP2 ---
HPI - Anesthesia Eval Consult details Narrative: egd PMFSH Active Problems Active Problems: All Active Problems (Updated 06/03/23 @ 20:53 by Juan Alberto Fernando MD) Vitamin B1 deficiency (Acute) LVH (left ventricular hypertrophy) (Acute) Abnormal EKG (Acute) Medial epicondylitis, left elbow (Acute) Cervical cancer screening declined (Acute) Colon cancer screening (Acute) Anemia (Acute) Status post total knee replacement, left (Acute) Osteoarthritis (Acute) Hearing impairment (Acute) Obesity (Acute) Colonoscopy refused (Acute) Annual physical exam (Acute) Type 2 diabetes mellitus with hyperglycemia (Acute) Positive cardiac stress test (Acute) PAD (peripheral artery disease) (Acute) Eczema (Acute) MGUS (monoclonal gammopathy of unknown significance) (Acute) Obesity due to excess calories (Acute) Localized osteoarthritis of left knee (Acute) Osteoarthritis, knee (Acute) CKD stage 3 due to type 2 diabetes mellitus (Acute) GERD (gastroesophageal reflux disease) (Acute) Bipolar disorder (Acute) ROD (obstructive sleep apnea) (Acute) Morbid obesity (Acute) Dyslipidemia (Acute) Hypertension (Acute) Diabetic polyneuropathy associated with type 2 diabetes mellitus (Acute) 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 mellitus (Acute) custodial (current) use of insulin (Acute) Past Medical History Medical History (Updated 06/03/23 @ 20:53 by Juan Alberto Fernando MD) Preoperative cardiovascular examination Preop examination Leg pain Bilateral calf pain Precordial chest pain Abnormal stress test Chest pain Diabetes type 2, controlled Anxiety COVID-19 vaccination declined Hard of hearing Hearing loss in left ear Tear of meniscus of left knee Cataract Osteoarthritis, knee Interstitial cystitis CKD stage 3 due to type 2 diabetes mellitus GERD (gastroesophageal reflux disease) Bipolar disorder ROD (obstructive sleep apnea) Morbid obesity Dyslipidemia Hypertension Diabetic polyneuropathy associated with type 2 diabetes mellitus 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 mellitus custodial (current) use of insulin Family History Family History Father Brain tumor Mother CVA (cerebral vascular accident) Thyroid disease Hypertension Depression Daughter Substance abuse Maternal Grandfather CVA (cerebral vascular accident) Maternal Grandmother Diabetes Family history of problems with anesthesia: No Surgical History Surgical History Hx of cystoscopy History of esophagogastroduodenoscopy (EGD) History of cardiac catheterization (~10/2020) History of open reduction and internal fixation (ORIF) procedure History of arthroplasty of right knee History of tonsillectomy History of bladder suspension procedure Hx of tubal ligation History of hernia surgery History of Problems with Anesthesia: No Social History Social History Household Members: None Housing: Apartment Are you a primary medicare specialist to a significant other at home: No Do you presently have visiting nurse or other home services: No Alcohol intake: never Patient Tobacco Use Status: Former Tobacco user Quit Date: 2014 Tobacco use type: Cigarette Years Smoked: 35 e-Cigarette/Vaping Use: Never Used Second Hand Smoke Exposure: No Use of substances other than those prescribed or required for medical reasons: Yes Are you DNR?: No Advance Directives: No Advance Directives Information Provided: Yes Advance Directives Date on File: 04/01/20 service: No Current occupational status: unemployed Current occupation: left hand dominant Cognitive needs: No Hearing needs: Yes (hearing aides) Vision needs: No Meds Allergies Allergy/AdvReac Type Severity Reaction Status Date / Time lurasidone [From LATUDA] Allergy Severe SEVERE Verified 05/27/23 12:21 HIGH BLOOD SUGARS Active Medications: Current Medications Lactated Ringer's (Lr) 1,000 mls @ 80 mls/hr IVCONT .[id number] [facility] Last Admin: 06/22/23 07:21 Dose: 80 mls/hr Home Medications Medication Instructions Recorded Confirmed Last Taken Type bupropion HCl 300 mg 24 hr tablet, 300 mg PO QAM 04/10/20 05/27/23 05/24/22 History extended release clonazepam 1 mg tablet 1 mg PO BEDTIME PRN Anxiety 04/10/20 05/27/23 05/23/22 History buspirone 30 mg tablet 30 mg PO BID 06/11/21 05/27/23 05/24/22 History lamotrigine 150 mg tablet 150 mg PO BID 03/12/22 05/27/23 05/24/22 History aspirin 81 mg tablet,delayed 81 mg PO DAILY 04/20/23 05/27/23 Unknown History release (Bacilio Low Dose Aspirin) clonidine HCl 0.1 mg tablet 0.1 mg PO BEDTIME 04/20/23 05/27/23 Unknown History paroxetine HCl 10 mg tablet 10 mg PO DAILY 04/20/23 05/27/23 Unknown History Exam Height,Weight and Vital Signs: Height 5 ft 6 in Weight 117.662 kg Last Vital Signs Temp 98.2 F 06/22/23 07:14 Pulse 70 06/22/23 07:14 Resp 16 06/22/23 07:14 BP 129/77 06/22/23 07:14 Pulse Ox 93 06/22/23 07:14 O2 Del Method Room Air 06/22/23 07:14 Pertinent Lab Results Pertinent Lab Results: Laboratory Tests 06/22/23 07:15 POC Glucose 166 H Airway Mallampati Class: III TM Dist: >3cm Neck ROM: Limited Heart: rrr Lungs: cta Assessment and Plan Assessment Anesthesia Assessment: Anesthesia Plan Discussed Final Anesthetic Review Family History of Problems with Anesthesia: No History of Problems with Anesthesia: No NPO: Yes ASA Class: IV Final Preanesthetic Review: No Changes in Pt Med Stat, Meds/Allgs Chart Reviewed, Consent Obtained/Reviewed and Anes Risks/Benef Reviewed Patient Risk: Intermediate Procedure Risk: Intermediate Anesthetic Plan Anesthetic Plan: GA and Agree w/ Assess. and Plan Disposition: Standard PACU
--- NOTE | 2023-06-22 07:31 | PC.NURSE ---
Patient unaware of last dose of aspirin. Mame Pride at bedside and made aware. No new orders at this time. May proceed with procedure.
--- NOTE | 2023-06-22 07:35 | PC.NURSE ---
Addendum entered by Munira John 06/22/23 07:37: Medication added to current list. Original Note: Trulicity not on patients medication list. Dr. Plaza at bedside and asked if patient takes Trulicity, which patient responded yes . Per patient, she took it this past Tuesday. Dr. Plaza aware. Okay to proceed with procedure.
--- NOTE | 2023-06-22 07:41 | PM.OP ---
Brief Operative Note Date of Service: 06/22/23 Pre-op diagnosis: GERD Post-op diagnosis: same Procedure: PROCEDURE DATE: 06/22/2023 PREOPERATIVE DIAGNOSIS: GERD POSTOPERATIVE DIAGNOSIS: ?Same as above. 1) normal exam PROCEDURE: Gsoluwfa-[id number]-xzalnbzwmwlv with biopsies Surgeon: Mica Fernando M.D.. Ph.D. Nurseryman Assistant: None ? Anesthesia: IV sedation Estimated blood loss: ?Minimal FINDINGS AND PROCEDURE: ? OPERATIVE INDICATIONS: ?The patient is a 58 year old female known to me who is interested in bariatric surgery. The patient has severe GERD and is unable to discontinue PPIs for 2 weeks to perform the H pylori breath test. Based on this information I recommended an upper endoscopy to evaluate the patient's symptoms. Risks and complications of the surgery were discussed with the patient in advance particularly the possibility of perforation or bleeding that may require surgical intervention. The patient understood the risks and was in agreement with the plan. ? PROCEDURE: After informed consent was obtained by the patient, the patient was ?transferred to the Operating Room and was placed in the supine position.? After successful induction of IV sedation, a mouth block was inserted and the patient was placed in the left lateral decubitus position. An upper endoscopy was performed next, the oropharynx and esophagus appeared within the normal limits. There was no hiatal hernia. The z-line was smooth. Two biopsies were obtained from the distal esophagus 2-3 cm proximal to the GE junction and two additional biopsies from the GE junction. The stomach was entered and it appeared to be of normal size. There was no gastritis. There was no stricture or ulcer. A biopsy was obtained from the distal antrum and gastric fundus. No significant bleeding was noted from any of the biopsy sites. The scope was then advanced into the duodenum which appeared to be normal as well. At that point the duodenum ?and the stomach were decompressed and the scope was withdrawn from the patient's mouth. The patient extubated and was transferred in stable condition to the Recovery Room for further care. I was present and performed all steps of the procedure. There were no residents to assist with this case. Ketan Fernando M.D., Ph.D. Surgeon: Juan Alberto Fernando MD Anesthesia: GETA Was an Nurseryman Assistant used for this Procedure?: No Estimated blood loss (mL): 0 IV fluids (mL): 400 Urine output (mL): 0 (No Fox to gravity) Pathology: other (1) antrum x1, 2) fundus x1, GE junction x2, esophagus x2) Condition: stable Disposition: PACU
[2023-06-22 08:20] VITALS: BP 129/79; PULSE 82; RESP 16; TEMP 36.8; O2SAT 95
[2023-06-22 08:25] VITALS: BP 130/79; PULSE 85; RESP 16; O2SAT 94
[2023-06-22 08:30] VITALS: BP 106/70; PULSE 81; RESP 16; O2SAT 95
[2023-06-22 08:35] VITALS: BP 108/72; PULSE 84; RESP 16; TEMP 37.1; O2SAT 93
[2023-06-22 08:50] VITALS: BP 110/72; PULSE 82; RESP 18; TEMP 36.9; O2SAT 97
== END 2023-06-22 09:42 | disposition home or self-care (01) ==
PROVIDERS: PCP Internal Medicine; Visit Provider Surgery
PROC: 0DJ08ZZ Inspection of Upper Intestinal Tract, Via Natural or Artificial Opening Endoscopic (ICD-10-PCS; CPT 43235; principal; 2023-06-22 07:30)
DX: K21.9 Gastro-esophageal reflux disease without esophagitis (principal); E66.01 Morbid (severe) obesity due to excess calories; Z68.41 Body mass index [BMI] 40.0-44.9, adult; E11.42 Type 2 diabetes mellitus with diabetic polyneuropathy; E11.21 Type 2 diabetes mellitus with diabetic nephropathy; E11.22 Type 2 diabetes mellitus with diabetic chronic kidney disease; I12.9 Hypertensive chronic kidney disease with stage 1 through stage 4 chronic kidney disease, or unspecified chronic kidney disease; N18.30 Chronic kidney disease, stage 3 unspecified; E78.5 Hyperlipidemia, unspecified; G47.33 Obstructive sleep apnea (adult) (pediatric); Z79.4 Long term (current) use of insulin; Z79.85 Long-term (current) use of injectable non-insulin antidiabetic drugs; Z79.84 Long term (current) use of oral hypoglycemic drugs; Z79.899 Other long term (current) drug therapy; Z88.8 Allergy status to other drugs, medicaments and biological substances; Z87.891 Personal history of nicotine dependence; Z98.890 Other specified postprocedural states
CPT/HCPCS: 43239; 82947; 88305; 88342; J0330; J1100; J2405; J2704

== ENCOUNTER → 2023-06-22 06:00 | Outpatient (BNV) | payer OTHER, SELFPAY | PROVIDERS: PCP Internal Medicine; Visit Provider Surgery | DX: K21.9 Gastro-esophageal reflux disease without esophagitis (principal) | CPT/HCPCS: 43239 ==

== ENCOUNTER 2023-06-23 12:56 | Outpatient (AMB) | payer OTHER, SELFPAY ==
--- NOTE | 2023-06-23 12:54 | MHC.WMTHER ---
Intake Intake Visit Reasons: VIDEO BH Intake Allergies lurasidone [From [facility]] Allergy (Severe, Verified 05/27/23 12:21) SEVERE HIGH BLOOD SUGARS [facility] Medical History (Updated 06/03/23 @ 20:53 by Juan Alberto Fernando MD) Preoperative cardiovascular examination Preop examination Leg pain Bilateral calf pain Precordial chest pain Abnormal stress test Chest pain Diabetes type 2, controlled Anxiety COVID-19 vaccination declined Hard of hearing Hearing loss in left ear Tear of meniscus of left knee Cataract Osteoarthritis, knee Interstitial cystitis CKD stage 3 due to type 2 diabetes mellitus GERD (gastroesophageal reflux disease) Bipolar disorder ROD (obstructive sleep apnea) Morbid obesity Dyslipidemia Hypertension Diabetic polyneuropathy associated with type 2 diabetes mellitus 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 mellitus group home (current) use of insulin Surgical History Hx of cystoscopy History of esophagogastroduodenoscopy (EGD) History of cardiac catheterization (~10/2020) History of open reduction and internal fixation (ORIF) procedure History of arthroplasty of right knee History of tonsillectomy History of bladder suspension procedure Hx of tubal ligation History of hernia surgery Family History Father Brain tumor Mother CVA (cerebral vascular accident) Thyroid disease Hypertension Depression Daughter Substance abuse Maternal Grandfather CVA (cerebral vascular accident) Maternal Grandmother Diabetes Social History Household Members: None Housing: Apartment Are you a primary rn care transition to a significant other at home: No Do you presently have visiting nurse or other home services: No Alcohol intake: never Patient Tobacco Use Status: Former Tobacco user Quit Date: 2014 Tobacco use type: Cigarette Years Smoked: 35 e-Cigarette/Vaping Use: Never Used Second Hand Smoke Exposure: No Advance Directives Date on File: 04/01/20 service: No Current occupational status: unemployed Current occupation: left hand dominant Cognitive needs: No Hearing needs: Yes (hearing aides) Vision needs: No Behavioral Health Assessment Weight Management Therapy Therapy Notes Details Pt is looking to have weight loss surgery to help improve her health and quality of life. She first mentions not liking how she looks and later with some encouragement mentioned her health. Pt sees a therapist Selena and psychiatrist from [facility]. [place] [facility] [place]. Pt reported that she has current thoughts of suicide and but not intent and reported sabianist reasons why she would never do that. Presenting Concerns Referral Source provider Reason for referral weight loss surgery evaluation Precipitating Event obesity Living Situation Current Living Situation Rent At risk of losing current housing? No Satisfied with current living situation? Yes Comments Pt reported that she lives with her boyfriend. Food/Weight/Diet Expectations of change weight loss and maintenance History/Relationship with food Pt reported that she would often binge eat when she was bored or depressed. She reported that she does not often eat meat, she would eat canned food, processed foods, candy, ice cream often. History/Relationship with weight She reported weight issues for most of her adult life. History/Relationship with dieting Pt was in the program in 2017. She stated that she did not go through with it then and wishes she had. Binge Eating Do you frequently eat large amounts of food in short periods of time, not feeling physically hungry? Yes Do you feel out of control when you eat a large amount of food in a short period of time? Yes Do you eat large amounts of food rapidly and typically alone? No Night Eating Do you wake up at least once during the night to eat? No If you wake up in the night, do you find that it is necessary to eat something in order to fall back asleep? Yes Do you have little or no appetite in the morning and feel very hungry in the evening, often overeating between dinner and when you go to bed? No Social History Family history and relationship Pt has two adult children as well as several grandchildren. She lives with her boyfriend. 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 Developmental history and status no issues known Social support boyfriend, children Cultural/Ethnic information Legal Involvement and History Current or historical involvement with the legal system? none known Education Highest grade completed high school diploma Preferred learning style Auditory, Verbal, Written, Learn by doing and Visual Currently enrolled in educational program? No Interested in further educational program? No Employment Employment Status Other Wants help to find employment? No Financial Situation Describe current financial situation Occasional struggle Financial assistance? SSDI Service Service? No Mental Health and Addiction Treatment Current/Past substance abuse? No Comments Pt denied a hx of drug or alcohol abuse and then reported that she did drink and use pills in the pas about 3-4x's a month several years. Also occasionally does smoke marijuana at night. Has not smoked cigarettes in 9 years. Current/Past addictive behavior concerns? Yes Medical and Physical Health Summary Physical exam in the last year? Yes Pain Screening Current pain? Yes Pain in the last few months? Yes Medications Is the patient compliant with medications? Yes Does the patient have Amor Guardian in place? Not applicable Does the patient use complimentary health approaches? Yes Trauma/Abuse History History of trauma? Yes Questionnaires PHQ-9 Over the last 2 weeks, how often have you been bothered by any of the following problems? 1. Little interest or pleasure in doing things: more than half the days 2. Feeling down, depressed, or hopeless: nearly every day 3. Trouble falling or staying asleep, or sleeping too much: several days 4. Feeling tired or having little energy: more than half the days 5. Poor appetite or overeating: several days 6. Feeling bad about yourself - or that you are a failure or have let yourself or your family down: several days 7. Trouble concentrating on things, such as reading the newspaper or watching television: not at all 8. Moving or speaking so slowly that other people could have noticed. Or the opposite - being so fidgety or restless that you have been moving around a lot more than usual: not at all 9. Thoughts that you would be better off or of hurting yourself in some way: nearly every day Total score: 13 Source: Developed by Drs. Brennen Sánchez, Fernanda Laird, Glenn Thapa and colleagues, with an educational juan f from [employer]. Binge Eating Scale Group 1 A. I don't feel self-conscious about my wt. or body size when I'm with others. B. I feel concerned about how I look to others, but it normally does not make me fell disappointed with myself C. I do get self-conscious about my appearance and wt. which makes me feel disappointed in myself. D. I feel very self-conscious about my wt. and frequently I feel intense shame and disgust for myself. I try to avoid social contacts because of my self-consciousness. Response Group 1: D Group 2 A. I don't have any difficulty eating slowly in the proper manner. B. Although I seem to gobble down foods, I don't end up feeling stuffed because of eating to much. C. At times, I tend to eat quickly and then, I feel uncomfortably full afterwards. D. I have the habit of bolting down my food, without really chewing it. When this happens I usually feel uncomfortably stuffed because I've eaten to much. Response Group 2: A Group 3 A. I feel capable to control my eating urges when I want to. B. I feel like I have failed to control my eating more than the average person. C. I feel utterly helpless when it comes to feeling in control of my eating urges. D. Because I feel so helpless about controlling my eating I have become very desperate about trying to get control. Response Group 3: B Group 4 A. I don't have the habit of eating when I'm bored. B. I sometimes eat when I'm bored, but often I'm able to get busy and get my mind off food. C. I have a regular habit of eating when I'm bored, but occasionally, I can use some other activity to get my mind off eating. D. I have a strong habit of eating when I'm bored. Nothing seems to help me breath the habit. Response Group 4: D Group 5 A. I'm usually physically hungry when I eat something. B. Occasionally, I eat something on impulse even though I really am not hungry. C. I have the regular habit of eating foods, that I might not really enjoy, to satisfy a hungry feeling even though physically, I don't need the food. D. Although I'm not physically hungry, I get a hungry feeling in my mouth that only seems to be satisfied when I eat a food, like sandwich, that fills my mouth. Sometimes, when I eat the food to satisfy my mouth hunger, I then spit the food out so I won't gain weight. Response Group 5: C Group 6 A. I don't feel any guilt or self-hate after I overeat. B. After I overeat, occasionally I feel guilt or self-hate. C. Almost all the time I experience strong guilt or self-hate after I overeat. Response Group 6: C Group 7 A. I don't lose total control of my eating when dieting even after periods when I overeat. B. Sometimes when I eat a forbidden food on a diet, I feel like I blew it and eat even more. C. Frequently, I have the habit of saying to myself, I've blown it now, why not go all the way, when I overeat on a diet. When that happens I eat more. D. I have a regular habit of starting a strict diets for myself but I break the diets by going on an eating binge. My life seems to be either a feast or famine. Response Group 7: C Group 8 A. I rarely eat so much food that I feel uncomfortably stuffed afterwards. B. Usually about once a month, I each such a quantity of food, I end up feeling very stuffed. C. I have regular periods during the month when I eat large amounts of food, either at mealtime or at snacks. D. I eat so much food that I regularly feel quite uncomfortable after eating and sometimes a bit nauseous. Response Group 8: D Group 9 A. My level of calorie intake does not go up very high or go down very low on a regular basis. B. Sometimes after I overeat, I will try to reduce my caloric intake to almost nothing to compensate for the excess calories I've eaten. C. I have a regular habit of overeating during the night. It seems that my routine is not to be hungry in the morning but overeat in the evening. D. In my adult years, I have had week-long periods where I practically starve myself. This follows periods when I overeat. It seems I live a life of either feast or famine. Response Group 9: C Group 10 A. I usually am able to stop eating when I want to. I know when enough is enough. B. Every so often, I experience a compulsion to eat which I can't seem to control. C. Frequently, I experience strong urges to eat which I seem unable to control, but at other times I can control my eating urges. D. I feel incapable of controlling urges to eat. I have a fear of not being able to stop eating voluntarily. Response Group 10: D Group 11 A. I don't have any problem stopping eating when I feel full. B. I usually can stop eating when I feel full but occasionally overeat leaving me feeling uncomfortably stuffed. C. I have a problem stopping eating once I start and usually I feel uncomfortably stuffed after I eat a meal. D. Because I have a problem not being able to stop eating when I want, I sometimes have to induce vomiting to relieve my stuffed feeling. Response Group 11: C Group 12 A. I seem to eat just as much when I'm with others, Family social gatherings as when I'm by myself. B. Sometimes, when I'm with other persons, I don't eat as much as I want to eat because I'm self-conscious about my eating. C. Frequently, I eat only a small amount of food when others are present, because I'm very embarrassed about my eating. D. I feel so ashamed about overeating that I pick times to overeat when I know no one will see me. I feel like a closet eater. Response Group 12: D Group 13 A. I eat three meals a day with only an occasional between meal snack. B. I eat 3 meals a day, but I also normally snack between meals. C. When I am snacking heavily, I get in the habit of skipping regular meals. D. There are regular periods when I seem to be continually eating, with no planned meals. Response Group 13: D Group 14 A. I don't think much about trying to control unwanted eating urges. B. At least some of the time, I feel my thoughts are pre-occupied with trying to control my eating urges. C. I feel that frequently I spend much time thinking about how much I ate or about trying not to eat anymore. D. It seems to me that most of my waking hours are pre-occupied by thoughts about eating or not eating. I feel like I'm constantly struggling not to eat. Response Group 14: D Group 15 A. I don't think about food a great deal. B. I have strong craving for food but they last only for brief periods of time. C. I have days when I can't seem to think about anything else but food. D. Most of my days seem to be pre-occupied with thoughts about food. I feel like I live to eat. Response Group 15: D Group 16 A. I usually know whether or not I'm physically hungry. I take the right portion of food to satisfy me. B. Occasionally, I feel uncertain about knowing whether or not I'm physically hungry. A these times it's hard to know how much food I should take to satisfy me. C. Even though I might know how many calories I should eat, I don't have any idea what is a normal amount of food for me. Response Group 16: C Binge Eating Score: 37 Score less than 17 Minimal Risk Score between 18-26 Moderate Risk Score between 27-46 High Risk Assessment & Plan Assessment & Plan (1) Bipolar disorder: Comment: [facility] counselling once a week (02/2021) Code(s): F31.9 - Bipolar disorder, unspecified Qualifiers: Active/Remission status: currently active Current bipolar episode type: mixed Current episode severity: moderate Qualified Code(s): F31.62 - Bipolar disorder, current episode mixed, moderate Plan: per records. Plan Patient reports severe depression on most days. She has providers that she sees biweekly and will be seen again by this television writer in the office. Her symptoms include significant binge eating and is struggling with the program meal plan. Patient was eating mostly canned and processed foods, needs to adjust to new way of eating. Telehealth Telehealth Location of provider rendering services: other Location of patient: address on file Patient Identification confirmed using: Name, : Yes Telehealth method: voice only Patient verbally consented to treatment: Yes Patient verbally consented to billing insurance company: Yes Patient informed of any privacy concerns related to visit: Yes Minutes spent on Phone/Video with Pt.: 45 Coding Level of Care Code Tele Psy Diag [place] ([id number]) Diagnoses Bipolar disorder, current episode mixed, moderate F31.62 Active/Remission status: currently active Current bipolar episode type: mixed Current episode severity: moderate Time Spent (min) 45
== END 2023-06-23 13:56 | disposition home or self-care (01) ==
LOC: HO.HBST 12:56
PROVIDERS: PCP Internal Medicine; Visit Provider Counselor Mental Health
DX: F31.62 Bipolar disorder, current episode mixed, moderate (principal)
CPT/HCPCS: 90791

== ENCOUNTER → 2023-06-23 12:56 | Outpatient (BNVA) | payer OTHER, SELFPAY | PROVIDERS: PCP Internal Medicine; Visit Provider Counselor Mental Health ==

== ENCOUNTER 2023-06-30 08:54 | Outpatient (REF) | payer OTHER, SELFPAY | END 2023-06-30 08:55 | disposition home or self-care (01) | LOC: HO.HAP 08:54 | PROVIDERS: Visit Provider Internal Medicine | DX: Z46.1 Encounter for fitting and adjustment of hearing aid (principal); H90.6 Mixed conductive and sensorineural hearing loss, bilateral | CPT/HCPCS: V5266 ==

== ENCOUNTER → 2023-06-30 09:06 | Outpatient (REF) | payer OTHER, SELFPAY | LOC: HO.CARD 09:06 | PROVIDERS: PCP Internal Medicine; Visit Provider Surgery | DX: I51.7 Cardiomegaly (principal) | CPT/HCPCS: 93306; Q9957 ==

== ENCOUNTER → 2023-06-30 09:09 | Outpatient (BNV) | payer OTHER, SELFPAY | PROVIDERS: PCP Internal Medicine; Visit Provider Internal Medicine Cardiovascular Disease | DX: I51.7 Cardiomegaly (principal) | CPT/HCPCS: 93306 ==

== ENCOUNTER 2023-06-30 09:24 | Outpatient (REF) | payer OTHER, SELFPAY | END 2023-06-30 09:25 | disposition home or self-care (01) | LOC: HO.US 09:24 | PROVIDERS: PCP Internal Medicine; Visit Provider Surgery | DX: E66.01 Morbid (severe) obesity due to excess calories (principal); K21.9 Gastro-esophageal reflux disease without esophagitis; I73.9 Peripheral vascular disease, unspecified; I10 Essential (primary) hypertension | CPT/HCPCS: 76705; 76981; 93306; Q9957 ==

== ENCOUNTER 2023-07-25 08:10 | Outpatient (AMB) | payer OTHER, SELFPAY ==
--- NOTE | 2023-07-25 08:43 | MHC.OFFVISWM ---
Intake VS Expanded 07/25/23 08:47 Height 5 ft 6 in Weight 244 lb 3 oz BMI 39.4 Body Fat % 51.2 Body Fat Mass 125 Fat Free Mass 119.2 Visceral Fat Rating 19 Body Water % 33.5 Body Water Mass 81.8 Basal Metabolic Rate/Score 1,525 Intake Visit Reasons: TV Follow Up SWL Allergies lurasidone [From [facility]] Allergy (Severe, Verified 05/27/23 12:21) SEVERE HIGH BLOOD SUGARS HPI TV Follow Up SWL HPI Details Start time: 8.34am, End time: 8.54am ?I spent 15 minutes speaking with the patient on the phone plus an additional 5 minutes reviewing and updating records for a total of 20 minutes HPI Comments History of Present Illness Details Overall weight loss: 16.3lbs, or 6.25% TBWL Is doing 2 Celebrate Rebuild protein shakes (1 scoop in 8oz almond milk), 2 Celebrate protein bars and one meal (10 forks of protein and 10 forks of salad or vegetables) Exercise: doing the stationary bike for 300 calories daily PFSH Medical History (Updated 06/03/23 @ 20:53 by Juan Alberto Fernando MD) Preoperative cardiovascular examination Preop examination Leg pain Bilateral calf pain Precordial chest pain Abnormal stress test Chest pain Diabetes type 2, controlled Anxiety COVID-19 vaccination declined Hard of hearing Hearing loss in left ear Tear of meniscus of left knee Cataract Osteoarthritis, knee Interstitial cystitis CKD stage 3 due to type 2 diabetes mellitus GERD (gastroesophageal reflux disease) Bipolar disorder ROD (obstructive sleep apnea) Morbid obesity Dyslipidemia Hypertension Diabetic polyneuropathy associated with type 2 diabetes mellitus 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 mellitus snf (current) use of insulin Surgical History Hx of cystoscopy History of esophagogastroduodenoscopy (EGD) History of cardiac catheterization (~10/2020) History of open reduction and internal fixation (ORIF) procedure History of arthroplasty of right knee History of tonsillectomy History of bladder suspension procedure Hx of tubal ligation History of hernia surgery Family History Father Brain tumor Mother CVA (cerebral vascular accident) Thyroid disease Hypertension Depression Daughter Substance abuse Maternal Grandfather CVA (cerebral vascular accident) Maternal Grandmother Diabetes Social History Household Members: None Housing: Apartment Are you a primary account executive healthcare to a significant other at home: No Do you presently have visiting nurse or other home services: No Alcohol intake: never Patient Tobacco Use Status: Former Tobacco user Quit Date: 2014 Tobacco use type: Cigarette Years Smoked: 35 e-Cigarette/Vaping Use: Never Used Second Hand Smoke Exposure: No Advance Directives Date on File: 04/01/20 service: No Current occupational status: unemployed Current occupation: left hand dominant Cognitive needs: No Hearing needs: Yes (hearing aides) Vision needs: No Assessment & Plan Assessment & Plan (1) Obesity: Code(s): E66.9 - Obesity, unspecified Qualifiers: Obesity type: due to excess calories Obesity classification: adult class 3 (BMI >= 40) Serious obesity comorbidity presence: with serious comorbidity Body mass index: BMI 40.0-44.9 Qualified Code(s): E66.01 - Morbid (severe) obesity due to excess calories; Z68.41 - Body mass index [BMI]40.0-44.9, adult Plan: 1. Plan for lap sleeve gastrectomy including upper GI endoscopy. All tests has been completed and reviewed and the patient is cleared for the surgery. ?If diaphragmatic or ventral hernias are present at time of surgery, these will be repaired laparoscopically as well. Risks and complications were discussed in detail including possible conversion to an open procedure, anastomotic leak, bleeding requiring transfusion, small bowel obstruction, , DVT and pulmonary embolism, cardiac, or pulmonary complications, as medical terminologist complications such as anastomotic ulcer, insufficient weight loss and vitamin deficiencies. I emphasized the importance of close follow-up, adherence to instructions and good communication. So far she has proven to be an excellent communicator and very compliant with all our directions accomplishing a great weight loss. I believe that she is an excellent candidate and she is ready. 2. Continue same nutritional plan of 2 Celebrate Rebuild protein shakes (1 scoop in 8oz almond milk), 2 Celebrate protein bars and one meal (10 forks of protein and 10 forks of salad or vegetables) 3. Exercise: continue the stationary bike daily but try to increase the calories to 350 per work-out 4. Continue to send me weight measurements weekly on Fridays Telehealth Telehealth Location of provider rendering services: practice address Location of patient: address on file Patient Identification confirmed using: Name, : Yes Telehealth method: voice only Patient verbally consented to treatment: Yes Patient verbally consented to billing insurance company: Yes Patient informed of any privacy concerns related to visit: Yes Minutes spent on Phone/Video with Pt.: 20 Coding Level of Care Code Tele Est Pt Level 3 (02975) Diagnoses Class 3 severe obesity due to excess calories with serious comorbidity and body mass index (BMI) of 40.0 to 44.9 in adult E66.01; Z68.41 Obesity type: due to excess calories Obesity classification: adult class 3 (BMI >= 40) Serious obesity comorbidity presence: with serious comorbidity Body mass index: BMI 40.0-44.9 Time Spent (min) 20
[2023-07-25 08:47] VITALS: BMI 39.4
== END 2023-07-25 08:54 | disposition home or self-care (01) ==
LOC: HO.HBS 08:11
PROVIDERS: PCP Internal Medicine; Visit Provider Surgery
DX: E66.01 Morbid (severe) obesity due to excess calories (principal); Z68.41 Body mass index [BMI] 40.0-44.9, adult
CPT/HCPCS: 99213

== ENCOUNTER → 2023-07-25 08:10 | Outpatient (BNVA) | payer OTHER, SELFPAY | PROVIDERS: PCP Internal Medicine; Visit Provider Surgery ==

== ENCOUNTER 2023-07-28 09:46 | Outpatient (AMB) | payer OTHER, SELFPAY ==
--- NOTE | 2023-07-28 10:51 | MHC.AMNUTRGE ---
Intake Intake Visit Reasons: (OV) F/U SWL Allergies lurasidone [From LATUDA] Allergy (Severe, Verified 05/27/23 12:21) SEVERE HIGH BLOOD SUGARS HPI Nutrition Presentation Details Reestablishing patient w CKD 3, DM on insulin and several meds for mental health Reason for consult elevated BMI Unstable SDH Reports transportation (Uses her daughter's car) and use of SNAP Diet Assmnt Details per surgeon, she is doing 1 bar and 2 shakes and a meal - chicken and vegetables. she now mostly does frozen instead of canned. Is really working on understanding and implementing behavior change. Shares that she deals with significant emotional eating. we talked about being patient with herself to make changes and also discussed being mindful of true hunger vs emotional . reviewed hunger scale and non-food reward ideas. talked about obesity as a disease and chronic medical condition. She reports she has some issues with self worth and we talked about focusing on how these healthy habits make her feel and how they enhance her life/wellbeing. Dietary counseling reduction Diagnosis Nutrition problem #1 overweight/obesity As related to (etiology) #1 excess energy intake and physical inactivity As evidenced by (sign/symptom) #1 high BMI Monitoring/Goals Nutrition problem monitoring total energy intake, level of knowledge/skill, total PRO intake, total CHO intake and weight Outcome progress progressing Learning/Education Readiness to learn excellent Stages of change action Educational materials provided Yes Most Recent Diabetes Results: No Data to Display [facility] Medical History (Updated 06/03/23 @ 20:53 by Juan Alberto Fernando MD) Preoperative cardiovascular examination Preop examination Leg pain Bilateral calf pain Precordial chest pain Abnormal stress test Chest pain Diabetes type 2, controlled Anxiety COVID-19 vaccination declined Hard of hearing Hearing loss in left ear Tear of meniscus of left knee Cataract Osteoarthritis, knee Interstitial cystitis CKD stage 3 due to type 2 diabetes mellitus GERD (gastroesophageal reflux disease) Bipolar disorder ROD (obstructive sleep apnea) Morbid obesity Dyslipidemia Hypertension Diabetic polyneuropathy associated with type 2 diabetes mellitus 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 mellitus 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 Surgical History Hx of cystoscopy History of esophagogastroduodenoscopy (EGD) History of cardiac catheterization (~10/2020) History of open reduction and internal fixation (ORIF) procedure History of arthroplasty of right knee History of tonsillectomy History of bladder suspension procedure Hx of tubal ligation History of hernia surgery Family History Father Brain tumor Mother CVA (cerebral vascular accident) Thyroid disease Hypertension Depression Daughter Substance abuse Maternal Grandfather CVA (cerebral vascular accident) Maternal Grandmother Diabetes Social History Household Members: None Housing: Apartment Are you a primary progressive care unit registered nurse to a significant other at home: No Do you presently have visiting nurse or other home services: No Alcohol intake: never Patient Tobacco Use Status: Former Tobacco user Quit Date: 2014 Tobacco use type: Cigarette Years Smoked: 35 e-Cigarette/Vaping Use: Never Used Second Hand Smoke Exposure: No Advance Directives Date on File: 04/01/20 service: No Current occupational status: unemployed Current occupation: left hand dominant Cognitive needs: No Hearing needs: Yes (hearing aides) Vision needs: No Assessment & Plan Assessment & Plan (1) Obesity (BMI 30-39.9): Code(s): E66.9 - Obesity, unspecified Plan will be seen again in 3 weeks. Charanjit likely be a good candidate if well supported Coding Level of Care Code Nutr Indiv Subseq (79899) Diagnoses Obesity (BMI 30-39.9) E66.9 Time Spent (min) 40
== END 2023-07-28 11:31 | disposition home or self-care (01) ==
PROVIDERS: PCP Internal Medicine; Visit Provider Dietitian, Registered
DX: E66.9 Obesity, unspecified (principal)

== ENCOUNTER → 2023-07-28 09:46 | Outpatient (BNVA) | payer OTHER, SELFPAY | PROVIDERS: PCP Internal Medicine; Visit Provider Dietitian, Registered | DX: E66.9 Obesity, unspecified (principal); E11.22 Type 2 diabetes mellitus with diabetic chronic kidney disease; N18.30 Chronic kidney disease, stage 3 unspecified; Z79.4 Long term (current) use of insulin; Z71.3 Dietary counseling and surveillance | CPT/HCPCS: 97803 ==

== ENCOUNTER 2023-08-02 12:31 | Outpatient (AMB) | payer OTHER, SELFPAY ==
--- NOTE | 2023-08-02 13:01 | A.OFFVIS_ITS ---
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 Accompanied by: Self / Same As Patient Allergies lurasidone [From LATUDA] Allergy (Severe, Verified 08/02/23 13:04) SEVERE HIGH BLOOD SUGARS Medication List - Last Reconciled 08/02/23 by Curt Michelle MD ascorbic acid (vitamin C) 500 mg PO BID aspirin (Bacilio Low Dose Aspirin) 81 mg PO DAILY atorvastatin 20 mg PO DAILY bupropion HCl 300 mg PO QAM buspirone 30 mg PO BID clonidine HCl 0.1 mg PO BEDTIME dulaglutide (Trulicity) 0.75 mg subcut QWEEK fenofibrate 160 mg PO DAILY ferrous sulfate 325 mg PO BID folic acid 1 mg PO DAILY insulin aspart U-100 (Novolog FlexPen U-100 Insulin aspart) 3 units (0.03 mL) subcut TID 30 days insulin glargine (Lantus Solostar U-100 Insulin) 30 units (0.3 mL) subcut BEDTIME 30 days lamotrigine 150 mg PO BID lisinopril 2.5 mg PO DAILY 90 days metformin 500 mg PO QAM omeprazole 20 mg PO DAILY paroxetine HCl 10 mg PO DAILY pen needle, diabetic (BD Shelly 2nd Gen Pen Needle) 5 times a day thiamine HCl (vitamin B1) 100 mg PO DAILY HPI HPI Comments History of Present Illness Details Tona returns for follow-up. She requires clearance for bariatric surgery. In the past, she was seen regarding chest pains. Underwent noninvasive workup as well as cardiac catheterization but unremarkable coronaries. Overall, she feels fine. She still has some random chest pains at times but nothing clearly exertional. Otherwise, no specific cardiac concerns. [facility] Medical History (Updated 07/29/23 @ 22:37 by Juan Alberto Fernando MD) Preoperative cardiovascular examination Preop examination Leg pain Bilateral calf pain Precordial chest pain Abnormal stress test Chest pain Diabetes type 2, controlled Anxiety COVID-19 vaccination declined Hard of hearing Hearing loss in left ear Tear of meniscus of left knee Cataract Osteoarthritis, knee Interstitial cystitis CKD stage 3 due to type 2 diabetes mellitus GERD (gastroesophageal reflux disease) Bipolar disorder ROD (obstructive sleep apnea) Morbid obesity Dyslipidemia Hypertension Diabetic polyneuropathy associated with type 2 diabetes mellitus 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 Surgical History Hx of cystoscopy History of esophagogastroduodenoscopy (EGD) History of cardiac catheterization (~10/2020) History of open reduction and internal fixation (ORIF) procedure History of arthroplasty of right knee History of tonsillectomy History of bladder suspension procedure Hx of tubal ligation History of hernia surgery Family History Father Brain tumor Mother CVA (cerebral vascular accident) Thyroid disease Hypertension Depression Daughter Substance abuse Maternal Grandfather CVA (cerebral vascular accident) Maternal Grandmother Diabetes Social History Household Members: None Housing: Apartment Are you a primary healthcare representative to a significant other at home: No Do you presently have visiting nurse or other home services: No Alcohol intake: never Patient Tobacco Use Status: Former Tobacco user Quit Date: 2014 Tobacco use type: Cigarette Years Smoked: 35 e-Cigarette/Vaping Use: Never Used Second Hand Smoke Exposure: No Advance Directives Date on File: 04/01/20 service: No Current occupational status: unemployed Current occupation: left hand dominant Cognitive needs: No Hearing needs: Yes (hearing aides) Vision needs: No Review of Systems Const Denies weakness ENT Denies dizziness Card Denies chest pain with activity, Denies syncope, Denies rapid heart rate, Denies pedal edema, Denies edema, Denies leg edema, Denies lightheadedness, Denies palpitations, Denies dyspnea, Denies dyspnea on exertion and Denies orthopnea Resp Denies cough, Denies dyspnea and Denies dyspnea on exertion GI Denies hematochezia and Denies change in stool character Musc Denies abnormal gait, Denies muscle cramps, Denies muscle weakness, Denies numbness, Denies radiating pain into limb and Denies tingling Neuro Denies abnormal gait, Denies dizziness, Denies syncope, Denies numbness, Denies tingling and Denies weakness Endo Denies palpitations Physical Exam Vital Signs: Last Vital Signs Pulse 74 08/02/23 13:02 BP 108/78 08/02/23 13:02 BMI result Body Mass Index 39.0 Const General: comfortable and no acute distress Orientation/consciousness: patient oriented x3 HEENT Other: Unremarkable Head: Yes normal to inspection Neck Neck: Yes normal visual inspection Chest Chest palpation & inspection: normal inspection of the chest Resp Auscultation: clear to auscultation bilaterally Cardio Palpation: normal PMI Heart sounds: S1 normal heart sound present, S2 normal heart sound present, no gallops, no murmurs and no rubs GI Palpation (GI): Soft to palpation Back/Spine/Pelvis Other: unremarkable Skin General skin exam: no rashes or lesions noted Neuro General: patient oriented x3 Extrem General: Yes normal to inspection Psych Mental Status: mental status grossly normal Assessment & Plan Assessment & Plan (1) Preoperative cardiovascular examination: Code(s): Z01.810 - Encounter for preprocedural cardiovascular examination (2) Morbid obesity: Code(s): E66.01 - Morbid (severe) obesity due to excess calories (3) Type 2 diabetes mellitus with unspecified complications: Code(s): E11.8 - Type 2 diabetes mellitus with unspecified complications (4) Dyslipidemia: Code(s): E78.5 - Hyperlipidemia, unspecified Plan Cardiac testing reviewed. Recent EKG shows underlying sinus rhythm at 83/Min; LVH/repolarization changes. Echocardiogram with LVEF of 50-55% but otherwise unremarkable. Myocardial perfusion imaging study shows normal perfusion. Cardiac catheterization shows normal coronary arteries. Mild LAD bridging only. Essentially, she has multiple cardiovascular risk factors but no evidence of any cardiomyopathy or coronary artery disease. May proceed with bariatric surgery as planned. Low cardiac risk. Coding Level of Care Code Est Pt Level 4 (29636) Diagnoses Preoperative cardiovascular examination Z01.810 Morbid obesity E66.01 Type 2 diabetes mellitus with unspecified complications E11.8 Dyslipidemia E78.5
[2023-08-02 13:02] VITALS: BP 108/78; PULSE 74; BMI 39.0
== END 2023-08-02 13:16 | disposition home or self-care (01) ==
PROVIDERS: PCP Internal Medicine; Visit Provider Internal Medicine
DX: Z01.810 Encounter for preprocedural cardiovascular examination (principal); E66.01 Morbid (severe) obesity due to excess calories; E11.8 Type 2 diabetes mellitus with unspecified complications; E78.5 Hyperlipidemia, unspecified
CPT/HCPCS: 99214

== ENCOUNTER 2023-08-02 12:31 | Outpatient (REF) | payer OTHER, SELFPAY ==
--- NOTE | ~2023-08-02 | XR_ITS ---
EXAMINATION: XR CHEST CLINICAL INFORMATION: Prior pulmonary vascular congestion COMPARISON: Chest x-ray 05/27/2023 TECHNIQUE: 2 views of the chest were obtained. FINDINGS: Cardiac silhouette is normal in size. The lungs are adequately aerated. Interstitial markings are less prominent diffusely. No lobar consolidation. No pleural effusion or pneumothorax. Mild degenerative changes of the spine. XR/XR chest 2V IMPRESSION: No acute cardiopulmonary pathology.
== END 2023-08-02 12:32 | disposition home or self-care (01) ==
LOC: HO.XRAY 12:31
PROVIDERS: Absent Provider Surgery; PCP Internal Medicine; Visit Provider Internal Medicine
DX: Z01.810 Encounter for preprocedural cardiovascular examination (principal); E66.01 Morbid (severe) obesity due to excess calories; R93.89 Abnormal findings on diagnostic imaging of other specified body structures; E11.8 Type 2 diabetes mellitus with unspecified complications; E78.5 Hyperlipidemia, unspecified
CPT/HCPCS: 71046; 99212

== ENCOUNTER 2023-08-08 13:44 | Outpatient (REF) | payer OTHER, SELFPAY | END 2023-08-08 13:45 | disposition home or self-care (01) | LOC: HO.HAP 13:44 | PROVIDERS: Visit Provider Internal Medicine | DX: Z46.1 Encounter for fitting and adjustment of hearing aid (principal); H90.6 Mixed conductive and sensorineural hearing loss, bilateral | CPT/HCPCS: V5266 ==

== ENCOUNTER 2023-08-08 13:56 | Outpatient (AMB) | payer OTHER, SELFPAY ==
--- NOTE | 2023-08-08 14:27 | A.OFFWM_ITS ---
Intake Intake Visit Reasons: (OV) BH F/U Allergies lurasidone [From LATUDA] Allergy (Severe, Verified 08/02/23 13:04) SEVERE HIGH BLOOD SUGARS [facility] Medical History (Updated 08/08/23 @ 14:48 by Yolie Roque) Preoperative cardiovascular examination Preop examination Leg pain Bilateral calf pain Precordial chest pain Abnormal stress test Chest pain Diabetes type 2, controlled Anxiety COVID-19 vaccination declined Hard of hearing Hearing loss in left ear Tear of meniscus of left knee Cataract Osteoarthritis, knee Interstitial cystitis CKD stage 3 due to type 2 diabetes mellitus GERD (gastroesophageal reflux disease) Bipolar disorder ROD (obstructive sleep apnea) Morbid obesity Dyslipidemia Hypertension Diabetic polyneuropathy associated with type 2 diabetes mellitus 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 Surgical History Hx of cystoscopy History of esophagogastroduodenoscopy (EGD) History of cardiac catheterization (~10/2020) History of open reduction and internal fixation (ORIF) procedure History of arthroplasty of right knee History of tonsillectomy History of bladder suspension procedure Hx of tubal ligation History of hernia surgery Family History Father Brain tumor Mother CVA (cerebral vascular accident) Thyroid disease Hypertension Depression Daughter Substance abuse Maternal Grandfather CVA (cerebral vascular accident) Maternal Grandmother Diabetes Social History Household Members: None Housing: Apartment Are you a primary medicare insurance specialist to a significant other at home: No Do you presently have visiting nurse or other home services: No Alcohol intake: never Patient Tobacco Use Status: Former Tobacco user Quit Date: 2014 Tobacco use type: Cigarette Years Smoked: 35 e-Cigarette/Vaping Use: Never Used Second Hand Smoke Exposure: No Advance Directives Date on File: 04/01/20 service: No Current occupational status: unemployed Current occupation: left hand dominant Cognitive needs: No Hearing needs: Yes (hearing aides) Vision needs: No Behavioral Health Assessment Weight Management Therapy Therapy Notes Details Patient reported doing very well, happiest she has ever been. At first she reported doing it because her boyfriend was concerned for her health and now she is doing it for herself. Has made progress and wants to continue to improve her health. Pt is looking to have weight loss surgery to help improve her health and quality of life. She first mentions not liking how she looks and later with some encouragement mentioned her health. Pt sees a therapist Selena and psychiatrist from [facility]. Psychiatric admission in at [facility] [place] but not since then. Pt reported that she has current thoughts of suicide and but not intent and reported protestant reasons why she would never do that. Presenting Concerns Referral Source provider Reason for referral weight loss surgery evaluation Precipitating Event obesity Living Situation Current Living Situation Rent At risk of losing current housing? No Satisfied with current living situation? Yes Comments Pt reported that she lives with her boyfriend. Food/Weight/Diet Expectations of change weight loss and maintenance History/Relationship with food Pt reported that she would often binge eat when she was bored or depressed. She reported that she does not often eat meat, she would eat canned food, processed foods, candy, ice cream often. History/Relationship with weight She reported weight issues for most of her adult life. History/Relationship with dieting Pt was in the program in 2017. She stated that she did not go through with it then and wishes she had. Binge Eating Do you frequently eat large amounts of food in short periods of time, not feeling physically hungry? Yes Do you feel out of control when you eat a large amount of food in a short period of time? Yes Do you eat large amounts of food rapidly and typically alone? No Night Eating Do you wake up at least once during the night to eat? No If you wake up in the night, do you find that it is necessary to eat something in order to fall back asleep? Yes Do you have little or no appetite in the morning and feel very hungry in the evening, often overeating between dinner and when you go to bed? No Social History Family history and relationship Pt has two adult children as well as several grandchildren. She lives with her boyfriend. 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 Developmental history and status no issues known Social support boyfriend, children Cultural/Ethnic information Legal Involvement and History Current or historical involvement with the legal system? none known Education Highest grade completed high school diploma Preferred learning style Auditory, Verbal, Written, Learn by doing and Visual Currently enrolled in educational program? No Interested in further educational program? No Employment Employment Status Other Wants help to find employment? No Financial Situation Describe current financial situation Occasional struggle Financial assistance? SSDI Service Service? No Mental Health and Addiction Treatment Current/Past substance abuse? No Comments Pt denied a hx of drug or alcohol abuse and then reported that she did drink and use pills in the pas about 3-4x's a month several years. Also occasionally does smoke marijuana at night. Has not smoked cigarettes in 9 years. Current/Past addictive behavior concerns? Yes Medical and Physical Health Summary Physical exam in the last year? Yes Pain Screening Current pain? Yes Pain in the last few months? Yes Medications Is the patient compliant with medications? Yes Does the patient have Amor Guardian in place? Not applicable Does the patient use complimentary health approaches? Yes Trauma/Abuse History History of trauma? Yes Questionnaires PHQ-9 Over the last 2 weeks, how often have you been bothered by any of the following problems? 1. Little interest or pleasure in doing things: not at all 2. Feeling down, depressed, or hopeless: several days 3. Trouble falling or staying asleep, or sleeping too much: several days 4. Feeling tired or having little energy: not at all 5. Poor appetite or overeating: not at all 6. Feeling bad about yourself - or that you are a failure or have let yourself or your family down: several days 7. Trouble concentrating on things, such as reading the newspaper or watching television: not at all 8. Moving or speaking so slowly that other people could have noticed. Or the opposite - being so fidgety or restless that you have been moving around a lot more than usual: several days 9. Thoughts that you would be better off or of hurting yourself in some way: nearly every day Total score: 7 Source: Developed by Drs. Brennen Sánchez, Fernanda Laird, Glenn Thapa and colleagues, with an educational juan f from [employer]. Assessment & Plan Assessment & Plan (1) Bipolar disorder: Code(s): F31.9 - Bipolar disorder, unspecified Qualifiers: Active/Remission status: currently active Current bipolar episode type: mixed Current episode severity: moderate Qualified Code(s): F31.62 - Bipolar disorder, current episode mixed, moderate Plan: per records. Plan Patient reports severe depression on most days. She has providers that she sees biweekly and will be seen again by this automobile and property underwriter in the office. Her symptoms include significant binge eating and is struggling with the program meal plan. Patient was eating mostly canned and processed foods, needs to adjust to new way of eating. She has improved her habits, some improvement in her depression however states that the thoughts of dying/not living anymore are chronic and something she is used to. Coding Level of Care Code Psytx 45 mins (10296) Diagnoses Bipolar disorder, current episode mixed, moderate F31.62 Active/Remission status: currently active Current bipolar episode type: mixed Current episode severity: moderate Time Spent (min) 45
== END 2023-08-08 14:56 | disposition home or self-care (01) ==
PROVIDERS: PCP Internal Medicine; Visit Provider Counselor Mental Health
DX: F31.62 Bipolar disorder, current episode mixed, moderate (principal)
CPT/HCPCS: 90834

== ENCOUNTER → 2023-08-08 13:56 | Outpatient (BNVA) | payer OTHER, SELFPAY | PROVIDERS: PCP Internal Medicine; Visit Provider Counselor Mental Health ==

== ENCOUNTER 2023-08-10 06:46 | Outpatient (REF) | payer OTHER, SELFPAY ==
--- NOTE | ~2023-08-10 | FL_ITS ---
EXAMINATION: XR FLUOROSCOPY UPPER GI WITH AIR CLINICAL INFORMATION: Preop evaluation prior to bariatric surgery COMPARISON: 01/06/2017. 06/11/2014. TECHNIQUE: Fluoroscopic air contrast upper GI examination was performed utilizing standard techniques with thin and thick barium and effervescent granules. Numerous spot images were obtained. FINDINGS: Images of the oropharynx and hypopharynx demonstrate normal swallow mechanism with normal epiglottic inversion and soft palate elevation. No tracheal penetration, glottic or subglottic aspiration identified. No nasopharyngeal reflux present. Hypopharyngeal structures appear normal without evidence of mass or diverticulum. There is ballooning of the hypopharynx associated mild cricopharyngeal achalasia. Dual and single contrast images of the esophagus demonstrate normal caliber, contour, and mucosal pattern. No evidence of stricture, mass, or ulcerations identified. There is to and fro motion of the barium column with nonpropulsive tertiary contractions noted throughout the entire esophagus. The lower esophageal sphincter does open without definite achalasia or stricture. No evidence of hiatus hernia identified. Gastroesophageal reflux is seen up to the thoracic inlet. Dual contrast and single contrast images of the stomach demonstrated diffusely thickened rugal folds, suggesting gastritis. No discrete ulcer or polyp, or evidence of mass. Contrast freely passed into the gastric antrum and duodenal bulb without delay. Single and air-contrast images of the duodenal bulb demonstrate no abnormality. The duodenal sweep has a normal appearance, course, and mucosal fold appearance. No malrotation. The imaged proximal jejunum has a normal fold pattern and caliber. FLUOROSCOPY TIME: 4 minutes 26 seconds Number of Spot Images: 10 Number of Cine: 9 DOSE AREA PRODUCT: 1089 uGy-m2 (microgray-meter squared) FL/FL upper GI w air IMPRESSION: 1. Ballooning of the hypopharynx with associated mild cricopharyngeal achalasia. 2. Esophageal dysmotility. Delayed emptying of the esophagus, likely secondary to diffuse esophageal dysmotility. This is similar to the 2017 exam. 3. Moderate gastroesophageal reflux. No esophageal mucosal changes. 4. Diffusely thickened gastric rugal folds suggesting gastritis. Recommend correlating with EGD. This procedure was performed by Deon Lindsay PA-C, and supervised by Dr. Agustin
== END 2023-08-10 06:47 | disposition home or self-care (01) ==
LOC: HO.XRAY 06:46
PROVIDERS: PCP Internal Medicine; Visit Provider Surgery
DX: E66.01 Morbid (severe) obesity due to excess calories (principal); K21.9 Gastro-esophageal reflux disease without esophagitis; E11.42 Type 2 diabetes mellitus with diabetic polyneuropathy; E11.21 Type 2 diabetes mellitus with diabetic nephropathy
CPT/HCPCS: 74246

== ENCOUNTER → 2023-08-10 08:00 | Outpatient (BNV) | payer OTHER, SELFPAY | PROVIDERS: PCP Internal Medicine; Visit Provider Radiology Diagnostic Radiology | DX: Z01.818 Encounter for other preprocedural examination (principal); E66.01 Morbid (severe) obesity due to excess calories | CPT/HCPCS: 74246 ==

== ENCOUNTER 2023-08-18 10:11 | Outpatient (AMB) | payer OTHER, SELFPAY ==
--- NOTE | 2023-08-18 10:06 | A.OFFVIS_ITS ---
Intake Intake Visit Reasons: (TV) F/U SWL Allergies lurasidone [From [facility]] Allergy (Severe, Verified 08/02/23 13:04) SEVERE HIGH BLOOD SUGARS HPI Nutrition Presentation Details Reestablishing patient w CKD 3, DM on insulin and several meds for mental health Reason for consult elevated BMI Unstable SDH Reports transportation (Uses her daughter's car) and use of SNAP Diet Assmnt Details per surgeon, she is doing 1 bar and 2 shakes and a meal - chicken and vegetables. she now mostly does frozen instead of canned. Is really working on understanding and implementing behavior change. She reports she stopped taking Trulicity, novolog, lantus. She feels tired of taking medications . Educated pt that she shouldn't stop abruptly and discuss with MD changes . Shares that she deals with significant emotional eating. we talked about being patient with herself to make changes and also discussed being mindful of true hunger vs emotional . reviewed hunger scale and non-food reward ideas. talked about obesity as a disease and chronic medical condition. She reports she has some issues with self worth and we talked about focusing on how these healthy habits make her feel and how they enhance her life/wellbeing. Dietary counseling reduction Diagnosis Nutrition problem #1 overweight/obesity As related to (etiology) #1 excess energy intake and physical inactivity As evidenced by (sign/symptom) #1 high BMI Monitoring/Goals0 Nutrition problem monitoring total energy intake, level of knowledge/skill, total PRO intake, total CHO intake and weight Outcome progress progressing Learning/Education Readiness to learn excellent Stages of change action Educational materials provided Yes Most Recent Diabetes Results: No Data to Display [facility] Medical History (Updated 08/08/23 @ 14:48 by Yolie Roque) Preoperative cardiovascular examination Preop examination Leg pain Bilateral calf pain Precordial chest pain Abnormal stress test Chest pain Diabetes type 2, controlled Anxiety COVID-19 vaccination declined Hard of hearing Hearing loss in left ear Tear of meniscus of left knee Cataract Osteoarthritis, knee Interstitial cystitis CKD stage 3 due to type 2 diabetes mellitus GERD (gastroesophageal reflux disease) Bipolar disorder ROD (obstructive sleep apnea) Morbid obesity Dyslipidemia Hypertension Diabetic polyneuropathy associated with type 2 diabetes mellitus 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 mellitus group home (current) use of insulin Surgical History Hx of cystoscopy History of esophagogastroduodenoscopy (EGD) History of cardiac catheterization (~10/2020) History of open reduction and internal fixation (ORIF) procedure History of arthroplasty of right knee History of tonsillectomy History of bladder suspension procedure Hx of tubal ligation History of hernia surgery Family History Father Brain tumor Mother CVA (cerebral vascular accident) Thyroid disease Hypertension Depression Daughter Substance abuse Maternal Grandfather CVA (cerebral vascular accident) Maternal Grandmother Diabetes Social History Household Members: None Housing: Apartment Are you a primary healthcare financial analyst to a significant other at home: No Do you presently have visiting nurse or other home services: No Alcohol intake: never Patient Tobacco Use Status: Former Tobacco user Quit Date: 2014 Tobacco use type: Cigarette Years Smoked: 35 e-Cigarette/Vaping Use: Never Used Second Hand Smoke Exposure: No Advance Directives Date on File: 04/01/20 service: No Current occupational status: unemployed Current occupation: left hand dominant Cognitive needs: No Hearing needs: Yes (hearing aides) Vision needs: No Assessment & Plan Assessment & Plan (1) Type 2 diabetes mellitus with hyperglycemia: Comment: eye and lasik Code(s): E11.65 - Type 2 diabetes mellitus with hyperglycemia Qualifiers: Diabetes mellitus retirement 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 Also discussed avoiding stopping her insulin use without consulting with MD. 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
== END 2023-08-18 10:19 | disposition home or self-care (01) ==
LOC: HO.HBS 10:11
PROVIDERS: PCP Internal Medicine; Visit Provider Dietitian, Registered
DX: E11.65 Type 2 diabetes mellitus with hyperglycemia (principal); Z79.4 Long term (current) use of insulin; E66.01 Morbid (severe) obesity due to excess calories

== ENCOUNTER → 2023-08-18 10:11 | Outpatient (BNVA) | payer OTHER, SELFPAY | PROVIDERS: PCP Internal Medicine; Visit Provider Dietitian, Registered | DX: E11.65 Type 2 diabetes mellitus with hyperglycemia (principal); E66.01 Morbid (severe) obesity due to excess calories; Z79.4 Long term (current) use of insulin | CPT/HCPCS: 97803 ==

== ENCOUNTER 2023-08-29 09:48 | Outpatient (AMB) | payer OTHER, SELFPAY ==
--- NOTE | 2023-08-29 09:25 | MHC.WMTHER ---
Intake Intake Visit Reasons: (TV) BH F/U Allergies lurasidone [From [facility]] Allergy (Severe, Verified 08/02/23 13:04) SEVERE HIGH BLOOD SUGARS REPLACED BY [facility] Medical History (Updated 08/08/23 @ 14:48 by Yolie Roque) Preoperative cardiovascular examination Preop examination Leg pain Bilateral calf pain Precordial chest pain Abnormal stress test Chest pain Diabetes type 2, controlled Anxiety COVID-19 vaccination declined Hard of hearing Hearing loss in left ear Tear of meniscus of left knee Cataract Osteoarthritis, knee Interstitial cystitis CKD stage 3 due to type 2 diabetes mellitus GERD (gastroesophageal reflux disease) Bipolar disorder ROD (obstructive sleep apnea) Morbid obesity Dyslipidemia Hypertension Diabetic polyneuropathy associated with type 2 diabetes mellitus 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 mellitus 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 Surgical History Hx of cystoscopy History of esophagogastroduodenoscopy (EGD) History of cardiac catheterization (~10/2020) History of open reduction and internal fixation (ORIF) procedure History of arthroplasty of right knee History of tonsillectomy History of bladder suspension procedure Hx of tubal ligation History of hernia surgery Family History Father Brain tumor Mother CVA (cerebral vascular accident) Thyroid disease Hypertension Depression Daughter Substance abuse Maternal Grandfather CVA (cerebral vascular accident) Maternal Grandmother Diabetes Social History Household Members: None Housing: Apartment Are you a primary wound care nurse to a significant other at home: No Do you presently have visiting nurse or other home services: No Alcohol intake: never Patient Tobacco Use Status: Former Tobacco user Quit Date: 2014 Tobacco use type: Cigarette Years Smoked: 35 e-Cigarette/Vaping Use: Never Used Second Hand Smoke Exposure: No Advance Directives Date on File: 04/01/20 service: No Current occupational status: unemployed Current occupation: left hand dominant Cognitive needs: No Hearing needs: Yes (hearing aides) Vision needs: No Behavioral Health Assessment Weight Management Therapy Therapy Notes Details Patient is unsure if she is ready but wants the surgery. she has a friend that had it and she is thin now, I want to look like her . Pt is looking to have weight loss surgery to help improve her health and quality of life. She first mentions not liking how she looks and later with some encouragement mentioned her health. Pt sees a therapist Selena and psychiatrist from [facility]. Psychiatric admission in at [facility] but not since then. Pt reported that she has current thoughts of suicide and but not intent and reported presybeterian reasons why she would never do that. Presenting Concerns Referral Source provider Reason for referral weight loss surgery evaluation Precipitating Event obesity Living Situation Current Living Situation Rent At risk of losing current housing? No Satisfied with current living situation? Yes Comments Pt reported that she lives with her boyfriend. Food/Weight/Diet Expectations of change weight loss and maintenance History/Relationship with food Pt reported that she would often binge eat when she was bored or depressed. She reported that she does not often eat meat, she would eat canned food, processed foods, candy, ice cream often. History/Relationship with weight She reported weight issues for most of her adult life. History/Relationship with dieting Pt was in the program in 2017. She stated that she did not go through with it then and wishes she had. Binge Eating Do you frequently eat large amounts of food in short periods of time, not feeling physically hungry? Yes Do you feel out of control when you eat a large amount of food in a short period of time? Yes Do you eat large amounts of food rapidly and typically alone? No Night Eating Do you wake up at least once during the night to eat? No If you wake up in the night, do you find that it is necessary to eat something in order to fall back asleep? Yes Do you have little or no appetite in the morning and feel very hungry in the evening, often overeating between dinner and when you go to bed? No Social History Family history and relationship Pt has two adult children as well as several grandchildren. She lives with her boyfriend. 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 Developmental history and status no issues known Social support boyfriend, children Cultural/Ethnic information Legal Involvement and History Current or historical involvement with the legal system? none known Education Highest grade completed high school diploma Preferred learning style Auditory, Verbal, Written, Learn by doing and Visual Currently enrolled in educational program? No Interested in further educational program? No Employment Employment Status Other Wants help to find employment? No Financial Situation Describe current financial situation Occasional struggle Financial assistance? SSDI Service Service? No Mental Health and Addiction Treatment Current/Past substance abuse? No Comments Pt denied a hx of drug or alcohol abuse and then reported that she did drink and use pills in the pas about 3-4x's a month several years. Also occasionally does smoke marijuana at night. Has not smoked cigarettes in 9 years. Current/Past addictive behavior concerns? Yes Medical and Physical Health Summary Physical exam in the last year? Yes Pain Screening Current pain? Yes Pain in the last few months? Yes Medications Is the patient compliant with medications? Yes Does the patient have Amor Guardian in place? Not applicable Does the patient use complimentary health approaches? Yes Trauma/Abuse History History of trauma? Yes Questionnaires PHQ-9 Over the last 2 weeks, how often have you been bothered by any of the following problems? 1. Little interest or pleasure in doing things: several days 2. Feeling down, depressed, or hopeless: more than half the days 3. Trouble falling or staying asleep, or sleeping too much: several days 4. Feeling tired or having little energy: not at all 5. Poor appetite or overeating: not at all 6. Feeling bad about yourself - or that you are a failure or have let yourself or your family down: several days 7. Trouble concentrating on things, such as reading the newspaper or watching television: not at all 8. Moving or speaking so slowly that other people could have noticed. Or the opposite - being so fidgety or restless that you have been moving around a lot more than usual: several days 9. Thoughts that you would be better off or of hurting yourself in some way: nearly every day Total score: 9 Source: Developed by Drs. Brennen Sánchez, Fernanda Laird, Glenn Thapa and colleagues, with an educational juan f from [employer]. Assessment & Plan Assessment & Plan (1) Bipolar disorder: Code(s): F31.9 - Bipolar disorder, unspecified Qualifiers: Active/Remission status: currently active Current bipolar episode type: mixed Current episode severity: moderate Qualified Code(s): F31.62 - Bipolar disorder, current episode mixed, moderate Plan: per records. Plan Patient reports severe depression on most days. She has providers that she sees biweekly and will be seen again by this promotion writer in the office. Her symptoms include significant binge eating and is struggling with the program meal plan. She has improved her habits, some improvement in her depression however states that the thoughts of dying/not living anymore are chronic and something she is used to. Patient often is focused on wanting to look a certain way. Telehealth Telehealth Location of provider rendering services: practice address Location of patient: address on file Patient Identification confirmed using: Name, : Yes Telehealth method: voice only Patient verbally consented to treatment: Yes Patient verbally consented to billing insurance company: Yes Patient informed of any privacy concerns related to visit: Yes Minutes spent on Phone/Video with Pt.: 25 Coding Level of Care Code Tele Psytx 45 mins ([id number]) Diagnoses Bipolar disorder, current episode mixed, moderate F31.62 Active/Remission status: currently active Current bipolar episode type: mixed Current episode severity: moderate Time Spent (min) 40
== END 2023-08-29 10:00 ==
PROVIDERS: PCP Internal Medicine; Visit Provider Counselor Mental Health
DX: F31.62 Bipolar disorder, current episode mixed, moderate (principal)
CPT/HCPCS: 90834

== ENCOUNTER → 2023-08-29 09:48 | Outpatient (BNVA) | payer OTHER, SELFPAY | PROVIDERS: PCP Internal Medicine; Visit Provider Counselor Mental Health ==

== ENCOUNTER 2023-09-20 10:18 | Outpatient (AMB) | payer OTHER, SELFPAY ==
--- NOTE | 2023-09-20 10:04 | A.OFFWM_ITS ---
Intake Intake Visit Reasons: VIDEO BH F/U Allergies lurasidone [From [facility]] Allergy (Severe, Verified 08/02/23 13:04) SEVERE HIGH BLOOD SUGARS FOR[facility] Medical History (Updated 08/08/23 @ 14:48 by Yolie Roque) Preoperative cardiovascular examination Preop examination Leg pain Bilateral calf pain Precordial chest pain Abnormal stress test Chest pain Diabetes type 2, controlled Anxiety COVID-19 vaccination declined Hard of hearing Hearing loss in left ear Tear of meniscus of left knee Cataract Osteoarthritis, knee Interstitial cystitis CKD stage 3 due to type 2 diabetes mellitus GERD (gastroesophageal reflux disease) Bipolar disorder ROD (obstructive sleep apnea) Morbid obesity Dyslipidemia Hypertension Diabetic polyneuropathy associated with type 2 diabetes mellitus 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 mellitus 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 Surgical History Hx of cystoscopy History of esophagogastroduodenoscopy (EGD) History of cardiac catheterization (~10/2020) History of open reduction and internal fixation (ORIF) procedure History of arthroplasty of right knee History of tonsillectomy History of bladder suspension procedure Hx of tubal ligation History of hernia surgery Family History Father Brain tumor Mother CVA (cerebral vascular accident) Thyroid disease Hypertension Depression Daughter Substance abuse Maternal Grandfather CVA (cerebral vascular accident) Maternal Grandmother Diabetes Social History Household Members: None Housing: Apartment Are you a primary director of managed care to a significant other at home: No Do you presently have visiting nurse or other home services: No Alcohol intake: never Patient Tobacco Use Status: Former Tobacco user Quit Date: 2014 Tobacco use type: Cigarette Years Smoked: 35 e-Cigarette/Vaping Use: Never Used Second Hand Smoke Exposure: No Advance Directives Date on File: 04/01/20 service: No Current occupational status: unemployed Current occupation: left hand dominant Cognitive needs: No Hearing needs: Yes (hearing aides) Vision needs: No Behavioral Health Assessment Weight Management Therapy Therapy Notes Details Patient reported today that she is doing okay. She has decided to stop the program. She also admitted that she has stopped all of her psychiatric medications for a while now and has not told anyone. Pt stated that she did this so that she can loose weight as they make her gain weight. She did report that she has been exercising and eating better too. Pt is looking to have weight loss surgery to help improve her health and quality of life. She first mentions not liking how she looks and later with some encouragement mentioned her health. Pt sees a therapist Selena and psychiatrist from [facility]. Psychiatric admission in at [facility] but not since then. Pt reported that she has current thoughts of suicide and but not intent and reported rastafari reasons why she would never do that. Presenting Concerns Referral Source provider Reason for referral weight loss surgery evaluation Precipitating Event obesity Living Situation Current Living Situation Rent At risk of losing current housing? No Satisfied with current living situation? Yes Comments Pt reported that she lives with her boyfriend. Food/Weight/Diet Expectations of change weight loss and maintenance History/Relationship with food Pt reported that she would often binge eat when she was bored or depressed. She reported that she does not often eat meat, she would eat canned food, processed foods, candy, ice cream often. History/Relationship with weight She reported weight issues for most of her adult life. History/Relationship with dieting Pt was in the program in 2017. She stated that she did not go through with it then and wishes she had. Binge Eating Do you frequently eat large amounts of food in short periods of time, not feeling physically hungry? Yes Do you feel out of control when you eat a large amount of food in a short period of time? Yes Do you eat large amounts of food rapidly and typically alone? No Night Eating Do you wake up at least once during the night to eat? No If you wake up in the night, do you find that it is necessary to eat something in order to fall back asleep? Yes Do you have little or no appetite in the morning and feel very hungry in the evening, often overeating between dinner and when you go to bed? No Social History Family history and relationship Pt has two adult children as well as several grandchildren. She lives with her boyfriend. 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 Developmental history and status no issues known Social support boyfriend, children Cultural/Ethnic information Legal Involvement and History Current or historical involvement with the legal system? none known Education Highest grade completed high school diploma Preferred learning style Auditory, Verbal, Written, Learn by doing and Visual Currently enrolled in educational program? No Interested in further educational program? No Employment Employment Status Other Wants help to find employment? No Financial Situation Describe current financial situation Occasional struggle Financial assistance? SSDI Service Service? No Mental Health and Addiction Treatment Current/Past substance abuse? No Comments Pt denied a hx of drug or alcohol abuse and then reported that she did drink and use pills in the pas about 3-4x's a month several years. Also occasionally does smoke marijuana at night. Has not smoked cigarettes in 9 years. Current/Past addictive behavior concerns? Yes Medical and Physical Health Summary Physical exam in the last year? Yes Pain Screening Current pain? Yes Pain in the last few months? Yes Medications Is the patient compliant with medications? Yes Does the patient have Amor Guardian in place? Not applicable Does the patient use complimentary health approaches? Yes Trauma/Abuse History History of trauma? Yes Assessment & Plan Assessment & Plan (1) Bipolar disorder: Code(s): F31.9 - Bipolar disorder, unspecified Qualifiers: Active/Remission status: currently active Current bipolar episode type: mixed Current episode severity: moderate Qualified Code(s): F31.62 - Bipolar disorder, current episode mixed, moderate Plan: per records. Plan Patient reports severe depression on most days. She has providers that she sees biweekly, Her symptoms include significant binge eating due to depression. She reported some improvement in her habits in past appointments and some improvement in her depression however states that the thoughts of dying/not living anymore are chronic and something she is used to. Patient often is focused on wanting to look a certain way. Today she sounded down, depressed and admitted she has stopped all her psychiatric medications in order to loose weight. Her therapist was contacted after her last appointment and expressed similar concerns about her having surgery. She is not appropriate for this program at this time and her therapist will be contacted again. Telehealth Telehealth Location of provider rendering services: other Location of patient: address on file Patient Identification confirmed using: Name, : Yes Telehealth method: voice only Patient verbally consented to treatment: Yes Patient verbally consented to billing insurance company: Yes Patient informed of any privacy concerns related to visit: Yes Minutes spent on Phone/Video with Pt.: 20 Coding Level of Care Code Tele Psytx 30 mins ([id number]) Diagnoses Bipolar disorder, current episode mixed, moderate F31.62 Active/Remission status: currently active Current bipolar episode type: mixed Current episode severity: moderate Time Spent (min) 20
== END 2023-09-20 10:51 | disposition home or self-care (01) ==
LOC: HO.HBST 10:18
PROVIDERS: PCP Internal Medicine; Visit Provider Counselor Mental Health
DX: F31.62 Bipolar disorder, current episode mixed, moderate (principal)
CPT/HCPCS: 90832

== ENCOUNTER → 2023-09-20 10:18 | Outpatient (BNVA) | payer OTHER, SELFPAY | PROVIDERS: PCP Internal Medicine; Visit Provider Counselor Mental Health | DX: F31.62 Bipolar disorder, current episode mixed, moderate (principal) ==

== ENCOUNTER 2023-09-21 12:10 | Outpatient (REF) | payer OTHER, SELFPAY | END 2023-09-21 12:11 | disposition home or self-care (01) | LOC: HO.HAP 12:10 | PROVIDERS: Visit Provider Internal Medicine | DX: Z46.1 Encounter for fitting and adjustment of hearing aid (principal); H90.6 Mixed conductive and sensorineural hearing loss, bilateral | CPT/HCPCS: V5266 ==

== ENCOUNTER 2023-09-21 12:45 | Outpatient (AMB) | payer OTHER, SELFPAY ==
--- NOTE | 2023-09-21 13:08 | MHC.OFFVIS ---
Intake Vital Signs 09/21/23 13:11 Height 5 ft 6 in Weight 241 lb BMI 38.9 Handedness Left Intake Visit Reasons: OV - Left elbow epicondylitis Intake Note: Tona is a 58 year old left hand dominant female presents today for an evaluation of left elbow epicondylitis. Patient reports she hasn't worked with O.T. due to thinking it wont work for her and it might increase her pain. She states that her pain has been getting worse every day. She finds relief when taking Tylenol. Allergies lurasidone [From LATUDA] Allergy (Severe, Verified 09/21/23 13:10) SEVERE HIGH BLOOD SUGARS HPI OV - Left elbow epicondylitis HPI Details 58-year-old left hand dominant female who returns to the office today for a follow-up of left elbow pain. She reports she did not begin occupational therapy as she believed it would not provider her relief and aggravate her pain. She continues to have pain in her left elbow which has been worsening day by day. She finds relief with Tylenol. [facility] Medical History (Updated 08/08/23 @ 14:48 by Yolie Roque) Preoperative cardiovascular examination Preop examination Leg pain Bilateral calf pain Precordial chest pain Abnormal stress test Chest pain Diabetes type 2, controlled Anxiety COVID-19 vaccination declined Hard of hearing Hearing loss in left ear Tear of meniscus of left knee Cataract Osteoarthritis, knee Interstitial cystitis CKD stage 3 due to type 2 diabetes mellitus GERD (gastroesophageal reflux disease) Bipolar disorder ROD (obstructive sleep apnea) Morbid obesity Dyslipidemia Hypertension Diabetic polyneuropathy associated with type 2 diabetes mellitus 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 mellitus jail (current) use of insulin Surgical History Hx of cystoscopy History of esophagogastroduodenoscopy (EGD) History of cardiac catheterization (~10/2020) History of open reduction and internal fixation (ORIF) procedure History of arthroplasty of right knee History of tonsillectomy History of bladder suspension procedure Hx of tubal ligation History of hernia surgery Family History Father Brain tumor Mother CVA (cerebral vascular accident) Thyroid disease Hypertension Depression Daughter Substance abuse Maternal Grandfather CVA (cerebral vascular accident) Maternal Grandmother Diabetes Social History Household Members: None Housing: Apartment Are you a primary neonatal critical care nurse to a significant other at home: No Do you presently have visiting nurse or other home services: No Alcohol intake: never Patient Tobacco Use Status: Former Tobacco user Quit Date: 2014 Tobacco use type: Cigarette Years Smoked: 35 e-Cigarette/Vaping Use: Never Used Second Hand Smoke Exposure: No Advance Directives Date on File: 04/01/20 service: No Current occupational status: unemployed Current occupation: left hand dominant Cognitive needs: No Hearing needs: Yes (hearing aides) Vision needs: No Review of Systems Const All systems reviewed & are unremarkable except as noted in HPI and below Physical Exam Vital Signs: BMI result Body Mass Index 38.9 Extrem Other: Left elbow: Skin intact. No erythema or swelling. ROM full without pain. Tenderness over the lateral epicondyle and pain with resisted wrist extension. NVI. Office Procedures Joint Injection/Drain Joint Injection/Drain Primary Site: left tennis elbow Prep: site was prepped using aseptic technique, ethochloride spray was applied and injection warnings given Injected: 40 mg of, with 1 mL of, 1% plain lidocaine and decadron Procedure: The patient tolerated the procedure well and there was some relief with the local anesthesia Coding 25767 - Epicondyle Procedure code (CPT) selection complete Assessment & Plan Assessment & Plan (1) Medial epicondylitis, left elbow: Code(s): M77.02 - Medial epicondylitis, left elbow Plan We discussed options today which include steroid injection. They did consent to move forward with the left elbow injection, which was tolerated well. I recommended rest, ice and elevation and OTC anti-inflammatories PRN for discomfort. We also discussed their diabetes and the effect the steroid can have on their blood glucose levels; therefore, they will continue to monitor these very closely over the next 72 hours. If there are any concerns, they should report to the ED immediately. Patient Instructions: Scribed for Josh Palumbo PA-C, by Aftab Macias medical assistant per diem, on 09/21/2023 at 1:45 PM EST. Josh Adam PA-C, have personally reviewed and agree with the information entered by the scribe. Coding Level of Care Code Est Pt Level 3 (35791) Diagnoses Medial epicondylitis, left elbow M77.02 CPT Codes Coding - Joint 2: 52944 - Epicondyle ([id number])
[2023-09-21 13:11] VITALS: BMI 38.9
== END 2023-09-21 13:36 | disposition home or self-care (01) ==
PROVIDERS: PCP Internal Medicine; Visit Provider Physician Assistant
DX: M77.02 Medial epicondylitis, left elbow (principal)
CPT/HCPCS: 20550; 99213

== ENCOUNTER → 2023-09-21 12:45 | Outpatient (BNVA) | payer OTHER, SELFPAY | PROVIDERS: PCP Internal Medicine; Visit Provider Physician Assistant | DX: M77.02 Medial epicondylitis, left elbow (principal) | CPT/HCPCS: 20551; 99212; J1100 ==

== ENCOUNTER 2023-10-19 12:17 | Outpatient (REF) | payer OTHER, SELFPAY | END 2023-10-19 12:18 | disposition home or self-care (01) | LOC: HO.HAP 12:17 | PROVIDERS: Visit Provider Internal Medicine | DX: Z46.1 Encounter for fitting and adjustment of hearing aid (principal); H90.6 Mixed conductive and sensorineural hearing loss, bilateral | CPT/HCPCS: V5266 ==

== ENCOUNTER 2023-10-28 08:45 | Outpatient (REF) | payer OTHER, SELFPAY ==
--- NOTE | 2023-10-28 14:48 | MHC.AU.HA3 ---
Hearing Instrument Follow-Up- Binaural Date of Visit: 10/28/23 Right Ear: Make, Model, Color, Serial Number: [id number] Functional Architect Repair Warranty: 07/28/2018 Functional Architect Loss and Damage Warranty: [facility] Service Plan: Battery Size: 312 Collection Officer/Slim Tube: Earmold/Dome/CShell/SlimTip: Type of Wax Guard: Dispensed By: [facility] Date of Fittin05/07/2016 Left Ear: Make, Model, Color, Serial Number: [id number] Functional Architect Repair Warranty: 07/28/2018 Functional Architect Loss and Damage Warranty: [facility] Service Plan: Battery Size: 312 Collection Officer/Slim Tube: Earmold/Dome/CShell/SlimTip: Type of Wax Guard: Dispensed By: [facility] Date of Fittin05/07/2016 Follow-Up Summary: Aid and CROS dropped off . Found both in need of cleaning and slim tube replacement needed on aid. Cleaned both, replaced right tube, changed domes. Debris in mics, brushed and vacuumed. Listening check positive after maintenance. Recommendations: Recommendations: Hearing instrument follow-up or maintenance as needed. Diagnosis Code(s): Primary Diagnosis: H90.6 Mixed Hearing Loss, Bilateral Signature: Provider: Quoc Reyes, [facility]
== END 2023-10-28 08:46 | disposition home or self-care (01) ==
LOC: HO.HAP 08:45
PROVIDERS: Visit Provider Internal Medicine
DX: Z13.89 Encounter for screening for other disorder (principal)

== ENCOUNTER 2023-11-02 08:49 | Outpatient (REF) | payer OTHER, SELFPAY | END 2023-11-02 08:50 | disposition home or self-care (01) | LOC: HO.HAP 08:49 | PROVIDERS: Visit Provider Internal Medicine | DX: Z46.1 Encounter for fitting and adjustment of hearing aid (principal) | CPT/HCPCS: 92593; 99499 ==

== ENCOUNTER 2023-12-16 08:38 | Outpatient (REF) | payer OTHER, SELFPAY | END 2023-12-16 08:39 | disposition home or self-care (01) | LOC: HO.MAMMO 08:38 | PROVIDERS: PCP Internal Medicine; Visit Provider Internal Medicine | DX: Z12.31 Encounter for screening mammogram for malignant neoplasm of breast (principal) | CPT/HCPCS: 77063; 77067 ==

== ENCOUNTER 2023-12-16 09:16 | Outpatient (REF) | payer OTHER, SELFPAY | END 2023-12-16 09:17 | disposition home or self-care (01) | LOC: HO.HAP 09:16 | PROVIDERS: Visit Provider Internal Medicine | DX: Z46.1 Encounter for fitting and adjustment of hearing aid (principal); H90.6 Mixed conductive and sensorineural hearing loss, bilateral | CPT/HCPCS: V5266 ==

== ENCOUNTER → 2023-12-16 09:30 | Outpatient (BNV) | payer OTHER, SELFPAY | PROVIDERS: PCP Internal Medicine; Visit Provider Radiology Diagnostic Radiology | DX: Z12.31 Encounter for screening mammogram for malignant neoplasm of breast (principal) | CPT/HCPCS: 77063; 77067 ==

== ENCOUNTER 2024-01-17 09:26 | Outpatient (REF) | payer OTHER, SELFPAY | END 2024-01-17 09:27 | disposition home or self-care (01) | LOC: HO.HAP 09:26 | PROVIDERS: Visit Provider Internal Medicine | DX: Z46.1 Encounter for fitting and adjustment of hearing aid (principal); H90.6 Mixed conductive and sensorineural hearing loss, bilateral | CPT/HCPCS: V5266 ==

== ENCOUNTER 2024-02-14 10:58 | Outpatient (REF) | payer OTHER, SELFPAY | END 2024-02-14 10:59 | disposition home or self-care (01) | LOC: HO.HAP 10:58 | PROVIDERS: Visit Provider Internal Medicine | DX: Z46.1 Encounter for fitting and adjustment of hearing aid (principal); H90.6 Mixed conductive and sensorineural hearing loss, bilateral | CPT/HCPCS: V5266 ==

== ENCOUNTER → 2024-03-06 10:48 | Outpatient (RCR) | payer OTHER, SELFPAY ==
[2021-03-19 14:40] VITALS: BP 118/56; PULSE 74; RESP 22; TEMP 36.3; O2SAT 96; BMI 38.7
[2021-03-19 14:51] LABS: MANUAL DIFF FLAG NO
[2021-03-19 14:57] LABS: Basophils Absolute Auto 0.1 X10*3/uL (0.0-0.2); Basophils Percent Auto 0.7 % (0-2); Eosinophils Absolute Auto 0.4 X10*3/uL (0.0-0.4); Eosinophils Percent Auto 5.2 % (0-4); Hematocrit 39.1 % (37-47); Hemoglobin 12.7 g/dl (12.0-16.0); Imm Gran Abs Auto 0.04 X10*3/uL (0.00-0.03); Imm Gran Pct Auto 0.6 % (0.0-0.4); Lymphocytes Absolute Auto 1.3 X10*3/uL (1.2-4.9); Lymphocytes Percent Auto 19.2 % (20-40); Mean Corpuscular HGB Conc 32.5 g/dl (31.0-35.0); Mean Corpuscular Hemoglobin 29.3 pg (27.0-33.0); Mean Corpuscular Volume 90.1 fL (80-98); Mean Platelet Volume 9.9 fL (9.4-12.3); Monocytes Absolute Auto 0.7 X10*3/uL (0.1-1.2); Monocytes Percent Auto 9.5 % (2-11); Neutrophils Absolute Auto 4.5 X10*3/uL (2.0-8.3); Neutrophils Percent Auto 64.8 % (45-73); Platelet Count 304 X10*3/uL (160-400); Red Blood Count 4.34 X10*6/uL (4.20-5.50); Red Cell Distribution Width 13.3 % (11.0-16.0); White Blood Count 6.9 X10*3/uL (4.8-10.8)
[2021-03-19 15:16] LABS: Alanine Aminotransferase 19 U/L (0-31); Albumin Level 4.5 g/dL (3.5-5.0); Alkaline Phosphatase 34 U/L (39-117); Anion Gap 15 (12-20); Aspartate Amino Transferase 17 U/L (5-31); Bilirubin Total 0.4 mg/dL (0.0-1.0); Blood Urea Nitrogen 21 mg/dL (9-16); Calcium 10.1 mg/dL (8.4-10.2); Carbon Dioxide 25 mmol/L (22-29); Chloride 107 mmol/L (96-108); Creatinine Clr Calc Pharmacy 45.7; Estimated Glomerular Filt Rate 30; Glucose Random 66 mg/dL (60-115); Potassium 4.6 mmol/L (3.3-5.1); Sodium 142 mmol/L (135-145); Total Protein 7.4 g/dL (6.5-8.0)
--- NOTE | 2021-03-19 16:26 | MHC.HEMONCMA ---
Pt came in for hem f/u and states they are doing well. clinical summary was updated and labs were drawn. pt will be in 6 months for f/u on 09/15/21
--- NOTE | 2021-03-19 16:41 | PM.HEMONCCN ---
Subjective - Subjective Chief complaint: Consult for: MGUS. Patient: new to practice Consult date: 03/19/21 Requesting Physician: Flip. Primary Care Provider: Diamond Velasquez MD Medical Summary: DIAGNOSIS: MGUS. HPI - Consult Narrative Reason for consult: Consult for: MGUS. Narrative: Tona Gordon is a pleasant 56 year old lady who has been referred here for abnormal protein electrophoresis. She was initially seen in rheumatology clinic back in 2019. March 2019 her SPEP was positive. It revealed: A possible restricted band in beta 1 globulin region. April 2019 her CBC: WBC 7.2, HGB 8.7, HCT 27.9, MCV 77, PLT 278. The patient was subsequently lost to follow-up. She was recently seen and referred here for further evaluation. ROS: She tells me that she is exhausted. No fever chills no night sweats. Appetite is is good. She has lost weight. She complains of headache and dizziness. She does get chest pain on occasion. She has nitroglycerin that she can take. Denies cough no sputum. Denies any abdominal pain nausea vomiting heartburn indigestion. Bowels are working without any gross blood in it. She has not had a colonoscopy. Urinary urgency. She has pain in her legs and elbow. Denies focal weakness. Denies skin rash is not pruritus. Family history: Mom of a stroke. No blood disorder in the family. 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 She is not . She has 2 children. She used to smoke half pack per day quit 5 years ago. Denies alcohol. Review of Systems - Constitutional Reports system reviewed and no additional complaints, except as documented, Reports fever(s), Reports lack of energy, Reports malaise, Reports poor appetite, Reports weakness, Reports weight loss, Denies night sweats - Eyes Reports system reviewed and no additional complaints, except as documented - ENT Reports system reviewed and no additional complaints, except as documented - Cardiovascular Reports system reviewed and no additional complaints, except as documented - Respiratory Reports no additional respiratory complaints - Gastrointestinal Reports system reviewed and no additional complaints, except as documented - Genitourinary Reports no additional female genitourinary complaints - Musculoskeletal Reports system reviewed and no additional complaints, except as documented Comments: Leg pain. - Integumentary/Breasts Skin/Breast: Reports no additional skin complaints - Neurologic Reports system reviewed and no additional complaints, except as documented - Psychiatric Reports system reviewed and no additional complaints, except as documented - Endocrine Reports no additional endocrine complaints - Hematologic/Lymphatic Reports system reviewed and no additional complaints, except as documented - Allergic/Immunologic Reports system reviewed and no additional complaints, except as documented [facility] Medical History: Medical History (Last Reviewed 03/19/21 @ 14:42 by Liliana Cui) Anxiety Bipolar disorder Cataract CKD stage 3 due to type 2 diabetes mellitus Diabetes type 2, controlled 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 mellitus Diabetic polyneuropathy associated with type 2 diabetes mellitus Dyslipidemia GERD (gastroesophageal reflux disease) Hypertension Interstitial cystitis 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 of 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 Morbid obesity Obesity Obesity (BMI 30-39.9) ROD (obstructive sleep apnea) Osteoarthritis Osteoarthritis, knee Tear of meniscus of left knee Functional capacity: independent ambulation Patient : No Family History: Family History (Last Reviewed 03/19/21 @ 14:42 by Liliana Cui) Father Brain tumor Mother CVA (cerebral vascular accident) Thyroid disease Hypertension Depression Daughter Substance abuse Maternal Grandfather CVA (cerebral vascular accident) Surgical History: Surgical History (Last Reviewed 03/19/21 @ 14:42 by Liliana Cui) History of arthroplasty of right knee History of bladder suspension procedure History of cardiac catheterization Onset Date: ~10/2020 History of hernia surgery History of open reduction and internal fixation (ORIF) procedure History of tonsillectomy Hx of knee surgery Hx of tubal ligation Social History: Social History (Last Reviewed 03/19/21 @ 14:42 by Liliana Cui) Living Situation History: Housing: Apartment Alcohol History: Alcohol intake: never Tobacco History: Patient Tobacco Use Status: Former Tobacco user Years Smoked: 40 quit 5 years ago Advance Directives: Advance Directives Date on File: 04/01/20 Nutrition Assessment: Patient : No Occupation Assessmet: service: No Current occupational status: unemployed Home Medications and Allergies Home Medications Medication Instructions Recorded Confirmed Type bupropion HCl 300 mg 24 hr tablet, 300 mg PO QAM 04/10/20 03/19/21 History extended release clonazepam 1 mg tablet 1 mg PO BEDTIME PRN 04/10/20 03/19/21 History lamotrigine 150 mg tablet 150 mg PO BID 04/10/20 03/19/21 History paroxetine HCl 40 mg tablet 20 mg PO BID 04/10/20 03/19/21 History buspirone 10 mg tablet 10 mg PO .QD tab 09/04/20 03/19/21 History prazosin 1 mg capsule 1 mg PO BEDTIME 09/15/20 03/19/21 History venlafaxine 150 mg 150 mg PO DAILY 09/15/20 03/19/21 History capsule,extended release 24 hr venlafaxine 75 mg capsule,extended 75 mg PO DAILY 09/15/20 03/19/21 History release 24 hr aspirin 81 mg tablet,delayed 81 mg PO DAILY 11/10/20 03/19/21 History release bupropion HCl 150 mg 24 hr tablet, 150 mg PO QAM 03/10/21 03/19/21 History extended release insulin glargine 100 unit/mL (3 44 unit SUBCUT BEDTIME ml 03/10/21 03/19/21 History mL) subcutaneous pen (Lantus Solostar U-100 Insulin) lamotrigine 100 mg tablet 100 mg PO DAILY 03/10/21 03/19/21 History melatonin 5 mg tablet 5 mg PO BEDTIME 03/10/21 03/19/21 History quetiapine 50 mg tablet 50 mg PO DAILY 03/10/21 03/19/21 History tizanidine 4 mg tablet 4 mg PO BEDTIME PRN 03/10/21 03/19/21 History Allergies Allergy/AdvReac Type Severity Reaction Status Date / Time lurasidone [From [facility]] Allergy Severe SEVERE Verified 03/10/21 10:23 HIGH BLOOD SUGARS Physical Exam Vital signs: Vital Signs Temp 97.4 F 03/19/21 14:40 Pulse 74 03/19/21 14:40 Resp 22 H 03/19/21 14:40 BP 118/56 L 03/19/21 14:40 Pulse Ox 96 03/19/21 14:40 Intake & Output 03/18/21 03/19/21 03/19/21 18:59 06:59 18:59 Other: Weight 112 kg [place] Weight in Grams [id number] Weight 112 kg - Constitutional Present: no acute distress, mild distress - Routine HEENT Exam Head: Present: normal inspection ENT: Present: mucous membranes moist - Routine Neck Exam Present: supple - Routine Respiratory Exam Present: CTAB - Routine Cardiovascular Exam Cardiovascular: Present: RRR, S1, S2 - Routine Abdominal Exam Present: normal bowel sounds, nontender - Routine Extremities Exam Present: nontender - Routine Skin Exam Present: intact, normal turgor - Routine Neurological Exam Present: alert, oriented X3 - Detailed Neurological Exam: Coma Scale Eye Opening: Spontaneous (4) Verbal Response: Oriented (5) - Routine Psychiatric Exam Present: depressed Hem/Onc Consult Result - Labs CBC & Chem 7: 03/19/21 14:48 03/19/21 14:48 Labs: Short CBC 03/19/21 Range/Units 14:48 WBC 6.9 (4.8-10.8) X10*3/uL Hgb 12.7 (12.0-16.0) g/dl Hct 39.1 (37-47) % Plt Count 304 (160-400) X10*3/uL BMP 03/19/21 14:48 Sodium 142 Potassium 4.6 Chloride 107 Carbon Dioxide 25 BUN 21 H Creatinine 1.77 H Calcium 10.1 D Liver Function 03/19/21 Range/Units 14:48 Total Bilirubin 0.4 (0.0-1.0) mg/dL AST 17 (5-31) U/L ALT 19 (0-31) U/L Alkaline Phosphatase 34 L (39-117) U/L Albumin 4.5 (3.5-5.0) g/dL Assessment and Plan Patient Active problem list reviewed?: Yes (1) MGUS (monoclonal gammopathy of unknown significance) Status: Acute Assessment and plan: This is a pleasant 56-year-old lady who has been referred for abnormal protein. 04/14 her SPEP revealed: Possible restricted band in beta 1 globulin region. DIFFERENTIAL DIAGNOSIS: 1. MGUS: This is most likely if she has plasma cell dyscrasia at all. Above test is not appear convincing. 2. MULTIPLE MYELOMA: Not likely. No obvious complications related to it. 3. A LYMPHOMA: Is in the differential but again not likely. PLAN: I will proceed with further evaluation. Will check SIEP: It revealed no monoclonal protein. Normal immunoglobulins. Check serum free light chain ratio: 1.36, this is normal to too. Check LDH. Check beta 2 microglobulin for prognosi: 4.7. Will follow her SIEP over time. If things progress can proceed with a bone marrow exam for further evaluation. She will return in 6 months for a follow-up. Thank you, CC: Flip. The SIEP and serum free light chain ratio is reassuring. She does not need further evaluation for this. - Time Spent With Patient Time Spent with Patient (in minutes): 35
[2021-03-23 09:37] LABS: IgA 182 mg/dL (47-310); IgG 1161 mg/dL (600-1640); IgM 54 mg/dL (50-300)
[2021-03-24 23:26] LABS: Kappa Light Chain, Free Serum 36.7 mg/L (3.3-19.4); Kappa/Lambda Lt Ch Free Ratio 1.35 (0.26-1.65); Lambda Light Chain, Free Serum 27.1 mg/L (5.7-26.3)
--- NOTE | 2021-09-17 09:21 | HO.HEMONCSCH ---
Called patient and went right to . Left message stating she missed apt with Dr. Francois on 09/17/21 and to call us to reschedule. N/S letter mailed.
== END | disposition home or self-care (01) ==
LOC: HO.ONC 03-19 13:37
PROVIDERS: PCP Internal Medicine; Referring Provider Nurse Practitioner Family; Visit Provider Internal Medicine Medical Oncology
DX: D47.2 Monoclonal gammopathy (principal)
CPT/HCPCS: 36415; 80053; 82232; 82784; 83520; 85025; 86334; 99204

== ENCOUNTER 2024-03-19 09:31 | Outpatient (REF) | payer OTHER, SELFPAY | END 2024-03-19 09:32 | disposition home or self-care (01) | LOC: HO.HAP 09:31 | PROVIDERS: Visit Provider Internal Medicine | DX: Z46.1 Encounter for fitting and adjustment of hearing aid (principal); H90.6 Mixed conductive and sensorineural hearing loss, bilateral | CPT/HCPCS: V5266 ==

== ENCOUNTER 2024-05-03 09:03 | Outpatient (REF) | payer OTHER, SELFPAY | END 2024-05-03 09:04 | disposition home or self-care (01) | LOC: HO.HAP 09:03 | PROVIDERS: Visit Provider Internal Medicine | DX: Z46.1 Encounter for fitting and adjustment of hearing aid (principal); H90.6 Mixed conductive and sensorineural hearing loss, bilateral | CPT/HCPCS: V5266 ==

== ENCOUNTER 2024-05-16 10:07 | Outpatient (AMB) | payer OTHER, SELFPAY ==
--- NOTE | 2024-05-16 10:15 | A.OFFPC_ITS ---
Vital Signs 05/16/24 10:16 Height 5 ft 6 in Weight 242 lb BMI 39.1 BP 112/62 Blood Pressure Location Lt brachial Position Sitting Pulse 72 Pulse Source Pulse Oximeter Pulse Oximetry (%) 97 Oxygen Delivery Method Room Air Intake Visit Reasons: DM follow up/NEEDS A1C - see comments Allergies lurasidone [From LATUDA] Allergy (Severe, Verified 05/16/24 10:16) SEVERE HIGH BLOOD SUGARS Tobacco use date assessed: 05/16/24 Dental Screening Dental Screen Date: 05/16/24 Did you have a dental visit in the last 12 months?: No Did you have a dental problem in the last 6 months where you did not have access to dental care?: No Was dental information given to patient?: No HPI DM follow up/NEEDS A1C - see comments HPI Details 59-year-old obese female with diabetes m ellitus GERD hypercholesterolemia hypertension chronic kidney disease bipolar disorder coming in for follow-up. Last seen in March 2023. Patient has declined colonoscopy cervical cancer screening. Up-to-date with mammogram. Patient is up-to-date with the eye exam November 2023 this is closely being followed up by shai Unger patient does have cataracts also. [facility] Medical History (Updated 05/16/24 @ 10:47 by Diamond Velasquez MD) Preoperative cardiovascular examination Preop examination Leg pain Bilateral calf pain Precordial chest pain Abnormal stress test Chest pain Diabetes type 2, controlled Anxiety COVID-19 vaccination declined Hard of hearing Hearing loss in left ear Tear of meniscus of left knee Cataract Osteoarthritis, knee Interstitial cystitis CKD stage 3 due to type 2 diabetes mellitus GERD (gastroesophageal reflux disease) Bipolar disorder ROD (obstructive sleep apnea) Morbid obesity Dyslipidemia Hypertension Diabetic polyneuropathy associated with type 2 diabetes mellitus 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 mellitus shelter (current) use of insulin Surgical History Hx of cystoscopy History of esophagogastroduodenoscopy (EGD) History of cardiac catheterization (~10/2020) History of open reduction and internal fixation (ORIF) procedure History of arthroplasty of right knee History of tonsillectomy History of bladder suspension procedure Hx of tubal ligation History of hernia surgery Family History Father Brain tumor Mother CVA (cerebral vascular accident) Thyroid disease Hypertension Depression Daughter Substance abuse Maternal Grandfather CVA (cerebral vascular accident) Maternal Grandmother Diabetes Social History Household Members: None Housing: Apartment Are you a primary director of healthcare systems to a significant other at home: No Do you presently have visiting nurse or other home services: No Alcohol intake: never Patient Tobacco Use Status: Former Tobacco user Tobacco use type: Cigarette Years Smoked: 35 e-Cigarette/Vaping Use: Never Used Second Hand Smoke Exposure: No Advance Directives Date on File: 04/01/20 service: No Current occupational status: unemployed Current occupation: left hand dominant Cognitive needs: No Hearing needs: Yes (hearing aides) Vision needs: No Questionnaire PHQ-9 Over the last 2 weeks, how often have you been bothered by any of the following problems? 1. Little interest or pleasure in doing things: several days 2. Feeling down, depressed, or hopeless: several days 3. Trouble falling or staying asleep, or sleeping too much: several days 4. Feeling tired or having little energy: several days 5. Poor appetite or overeating: several days 6. Feeling bad about yourself - or that you are a failure or have let yourself or your family down: several days 7. Trouble concentrating on things, such as reading the newspaper or watching television: several days 8. Moving or speaking so slowly that other people could have noticed. Or the opposite - being so fidgety or restless that you have been moving around a lot more than usual: not at all 9. Thoughts that you would be better off or of hurting yourself in some way: several days Total score: 8 Depression Screening Interpretation: Positive Depression Screening Done: Yes Source: Developed by Drs. Brennen Sánchez, Fernanda Laird, Glenn Thapa and colleagues, with an educational juan f from [employer]. Thrive Questionnaire Date Thrive assessed: 05/16/24 I am a: Patient What is your living situation today?: I have a steady place to live Within the past 12 months, did the food you bought not last and you didn't have the money to get more?: Never true Within the past 12 months, did you worry whether your food would run out before you got money to buy more?: Never true Do you have trouble paying for medicines?: No Do you have trouble getting transportation to medical appointments?: No Do you have trouble paying your heating and electricity bill?: No Do you have trouble taking care of your child, family member or friend?: No Do you have trouble with day-to-day activities such as bathing, preparing meals, shopping, managing finances, etc.?: No Are you currently unemployed and looking for a job?: No Are you interested in more education?: No Currently or been in a relationship where the following occur: No concerns reported THRIVE Score: 0 AUDIT C Alcohol Use Questionnaire (AUDIT-C) 1. How often do you have a drink containing alcohol?: Never 2. How many drinks containing alcohol do you have on a typical day when you are drinking?: 1 or 2 (0) 3. How often do you have six or more drinks on one occasion?: Never Total Score: 0 JUANPABLO-7 AMB Questionnaire JUANPABLO-7 Date JUANPABLO - 7 assessed: 05/16/24 Feeling nervous, anxious, or on edge: 2 = More than half the days Not being able to stop or control worryin = Several days Worrying too much about different things: 1 = Several days Trouble relaxin = More than half the days Being so restless that it is hard to sit still: 2 = More than half the days Becoming easily annoyed or irritable: 1 = Several days Feeling afraid as if something awful might happen: 1 = Several days Total JUANPABLO-7 score (0-4 normal; 5-9 mild; 10-14 moderate; 15-21 severe): 10 Source: Developed by Drs. Brennen Sánchez, Fernanda Laird, Glenn Thapa and colleagues, with an educational juan f from [employer]. Physical exam (Primary Care) Vital Signs: Last Vital Signs Pulse 72 05/16/24 10:16 BP 112/62 05/16/24 10:16 Pulse Ox 97 05/16/24 10:16 Oxygen Delivery Method Room Air 05/16/24 10:16 BMI result Body Mass Index 39.1 Tobacco/Smoking Status: Tobacco use Status Tobacco use date assessed 05/16/24 05/16/24 10:16 Patient Tobacco Use Status Former Tobacco user 05/16/24 10:16 Tobacco use type Cigarette 05/16/24 10:16 e-Cigarette/Vaping Use Never Used 05/16/24 10:16 PHQ-9: PHQ-9 Score PHQ-9: Total score 8 05/16/24 10:30 Depression Screening Interpretation: Positive Thrive Assessment: Date of Thrive Assessment Date Thrive assessed 05/16/24 05/16/24 10:18 Currently or been in a relationship where the following occur: No concerns reported Const General: alert and awake HENRI Head: Yes normocephalic Ears: external ears normal and TM's normal bilaterally Face and sinus: Yes normal facial exam Mouth: moist mucous membranes Throat: Yes tonsils normal Eyes Conjunctivae: conjunctivae normal Pupils: Equal, round and reactive pupils present and Pupil accommodation reflex normal Direct Ophthalmoscopy: normal light reflex Neck Neck: No lymphadenopathy Thyroid: Thyroid normal Chest Chest palpation & inspection: normal inspection of the chest Resp Effort & Inspection: normal respiratory effort and no audible wheezes Auscultation: clear to auscultation bilaterally, no crackles, no wheezes and lung sounds not diminished Cardio Rate: regular rate Rhythm: regular rhythm Peripheral pulses: radial pulses present and dorsalis pedis present GI Palpation (GI): no masses Auscultation: normal bowel sounds and normoactive bowel sounds Rectal Exam - Female: deferred Skin General skin exam: no rashes or lesions noted Rashes: no rashes Neuro General: deep tendon reflexes 2+ bilaterally Cranial nerves: Yes Equal, round and reactive pupils present, Yes Midline tongue present and Yes Ability to bilaterally elevate shoulders present Cognition (Neuro): normal cognition Gait exam (Neuro): Normal gait present Motor exam (neuro): 5/5 motor strength present throughout Deep tendon reflexes (DTR's): Right brachioradialis reflex intensity grade: 2+, Left brachioradialis reflex intensity grade: 2+, Right patellar reflex intensity grade: 2+ and Left patellar reflex intensity grade: 2+ Extrem General: No edema Results AMB Hemoglobin A1c AMB Hemoglobin A1c 6.8 % Last Edit by Sandra Lieberman CMA on 05/16/24 10 :31 Results Reviewed Results Reviewed: Laboratory Last Values Hgb A1c (Clinic) 6.8 % (4.0-6.0) H 05/16/24 10:18 Coding Level of Care Code Est Pt Level 4 (27775) Diagnoses Type 2 diabetes mellitus with hyperglycemia, with long-term current use of insulin E11.65; Z79.4 Diabetes mellitus termite exterminator insulin use: with termite exterminator use Essential hypertension I10 Hypertension type: essential hypertension Dyslipidemia E78.5 Gastroesophageal reflux disease without esophagitis K21.9 Esophagitis presence: without esophagitis Bipolar disorder, current episode mixed, moderate F31.62 Active/Remission status: currently active Current bipolar episode type: mixed Current episode severity: moderate Class 2 severe obesity due to excess calories with serious comorbidity and body mass index (BMI) of 37.0 to 37.9 in adult E66.01; Z68.37 Obesity classification: adult class 2 (BMI 35 - 39.9) Serious obesity comorbidity presence: with serious comorbidity Body mass index: BMI 37.0-37.9 Assessment & Plan Assessment & Plan (1) Type 2 diabetes mellitus with hyperglycemia: Comment: eye and lasik Code(s): E11.65 - Type 2 diabetes mellitus with hyperglycemia Category: Medical Qualifiers: Diabetes mellitus termite exterminator insulin use: with group home use Qualified Code(s): E11.65 - Type 2 diabetes mellitus with hyperglycemia; Z79.4 - shelter (current) use of insulin Plan: Decrease the amount of carbohydrate intake, pasta, bread, rice and potatoes are all sugar and that is aside from all the sweet stuff, remember that fruits are good but they are Sweet also. Hemoglobin A1c goal of less than 6.5. Patient is on Trulicity NovoLog insulin Lantus insulin metformin. (2) Hypertension: Code(s): I10 - Essential (primary) hypertension Category: Medical Qualifiers: Hypertension type: essential hypertension Qualified Code(s): I10 - Essential (primary) hypertension Plan: Continue with blood pressure medication. Decrease salt intake and exercise on lisinopril 2.5 mg once a day (3) Dyslipidemia: Code(s): E78.5 - Hyperlipidemia, unspecified Category: Medical Plan: Avoid fried foods, chicken skin, eggs, butter margarine, pastries and meat. Be it pork or beef they have a lot of cholesterol LDL goal of less than 100 and triglyceride of less than 150 on atorvastatin 20 mg once a day (4) GERD (gastroesophageal reflux disease): Code(s): K21.9 - Gastro-esophageal reflux disease without esophagitis Category: Medical Qualifiers: Esophagitis presence: without esophagitis Qualified Code(s): K21.9 - Gastro-esophageal reflux disease without esophagitis Plan: Avoid the foods that causes that usually spicy foods, tomato products, juices, coffee, soda and foods that your sensitive to. After eating do not lie down, allow 3-4 hours before in lie down. And keep the head of bed above 30 degrees to avoid the acid from going up. (5) Bipolar disorder: Comment: [facility] Code(s): F31.9 - Bipolar disorder, unspecified Category: Medical Qualifiers: Active/Remission status: currently active Current bipolar episode type: mixed Current episode severity: moderate Qualified Code(s): F31.62 - Bipolar disorder, current episode mixed, moderate Plan: Continue with counseling and therapy (6) Obesity due to excess calories: Code(s): E66.09 - Other obesity due to excess calories Category: Medical Qualifiers: Obesity classification: adult class 2 (BMI 35 - 39.9) Serious obesity comorbidity presence: with serious comorbidity Body mass index: BMI 37.0-37.9 Qualified Code(s): E66.01 - Morbid (severe) obesity due to excess calories; Z68.37 - Body mass index [BMI] 37.0-37.9, adult Plan: Diet and exercise Orders: Orders Comprehensive Met. Panel Today E11.65 - Type 2 diabetes mellitus with hyperglycemia, Z79.4 - 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 Free T4 (Free Thyroxine) Today E11.65 - Type 2 diabetes mellitus with hyperglycemia, Z79.4 - 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 Vitamin B12 and Folate Today E11.65 - Type 2 diabetes mellitus with hyperglycemia, Z79.4 - shelter (current) use of insulin Vitamin D 25-OH Total Today E11.65 - Type 2 diabetes mellitus with hyperglycemia, Z79.4 - 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 AMB Hemoglobin A1c Today Z13.9 - Encounter for screening, unspecified Complete Blood Count Auto Diff Today E11.65 - Type 2 diabetes mellitus with hyperglycemia, Z79.4 - 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 Creatinine Urine Today E11.65 - Type 2 diabetes mellitus with hyperglycemia, Z79.4 - 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 Microalbumin, Random (w Creat) Today E11.65 - Type 2 diabetes mellitus with hyperglycemia, Z79.4 - 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 Lipid Panel Today E11.65 - Type 2 diabetes mellitus with hyperglycemia, E78.00 - Pure hypercholesterolemia, unspecified, Z79.4 - 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 Thyroid Stimulating Hormone Today E11.65 - Type 2 diabetes mellitus with hyperglycemia, Z79.4 - shelter (current) use of insulin
[2024-05-16 10:16] VITALS: BP 112/62; PULSE 72; O2SAT 97; BMI 39.1
== END 2024-05-16 10:59 | disposition home or self-care (01) ==
PROVIDERS: PCP Internal Medicine; Visit Provider Internal Medicine
DX: E11.65 Type 2 diabetes mellitus with hyperglycemia (principal); Z79.4 Long term (current) use of insulin; F31.62 Bipolar disorder, current episode mixed, moderate; E66.01 Morbid (severe) obesity due to excess calories; Z68.37 Body mass index [BMI] 37.0-37.9, adult; I10 Essential (primary) hypertension; E78.5 Hyperlipidemia, unspecified; K21.9 Gastro-esophageal reflux disease without esophagitis

== ENCOUNTER → 2024-05-16 10:07 | Outpatient (BNVA) | payer OTHER, SELFPAY | PROVIDERS: PCP Internal Medicine; Visit Provider Internal Medicine | DX: E11.65 Type 2 diabetes mellitus with hyperglycemia (principal); I10 Essential (primary) hypertension; E78.5 Hyperlipidemia, unspecified; K21.9 Gastro-esophageal reflux disease without esophagitis; Z79.4 Long term (current) use of insulin | CPT/HCPCS: 83036; 96127; 99212 ==

== ENCOUNTER 2024-06-11 08:41 | Outpatient (REF) | payer OTHER, SELFPAY ==
--- NOTE | 2024-06-11 11:02 | MHC.AU.HA3 ---
Hearing Instrument Follow-Up- Binaural Date of Visit: 06/11/24 Right Ear: Handy, Model, Color, Serial Number: [id number] Server Cashier Repair Warranty: 07/28/2018 Battery Size: 312 Dispensed By: [facility] Date of Fittin05/07/2016 Left Ear: Handy, Model, Color, Serial Number: [id number] Server Cashier Repair Warranty: 07/28/2018 Battery Size: 312 Dispensed By: [facility] Date of Fittin05/07/2016 Follow-Up Summary: Seen for evaluation. DUENAS maintenance performed. Cleaned aid and CROS, some debris noted in microphones, replaced slim tubes and domes. Listening check positive. Briefly discussed new technology. Advised CROS options are limited to rechargeable for the newest platform. Discussed receivers vs. slim tubes. Tona wanted to think about it. Advised to return for DUENAS consult if interested. Advised this eval is good for six months for hearing aid fitting. Recommendations: Recommendations: Hearing instrument follow-up or maintenance as needed. Diagnosis Code(s): Primary Diagnosis: H90.3 Bilateral Sensorineural Hearing Loss Signature: Provider: Quoc Reyes, [facility]
== END 2024-06-11 08:42 | disposition home or self-care (01) ==
LOC: HO.SH 08:41
PROVIDERS: Visit Provider Internal Medicine
DX: Z01.118 Encounter for examination of ears and hearing with other abnormal findings (principal); Z46.1 Encounter for fitting and adjustment of hearing aid; H90.3 Sensorineural hearing loss, bilateral
CPT/HCPCS: 92557; 92567; 92593; 99499; V5266

== ENCOUNTER 2024-07-25 08:11 | Outpatient (REF) | payer OTHER, SELFPAY | END 2024-07-25 08:12 | disposition home or self-care (01) | LOC: HO.HAP 08:11 | PROVIDERS: Visit Provider Internal Medicine | DX: Z46.1 Encounter for fitting and adjustment of hearing aid (principal); H90.3 Sensorineural hearing loss, bilateral | CPT/HCPCS: V5266 ==

== ENCOUNTER 2024-08-31 07:37 | Outpatient (REF) | payer OTHER, SELFPAY ==
--- OUTSIDE RECORDS SUMMARY | 2024-08-31 07:40 | XMS_ITS | Clinical Summary ---
Author Organization [facility] Address [address] [place] [address] Phone Care Team Providers Care Production Control Expert Name Role Phone Diamond Velasquez MD Primary Care Provider [phone] Allergies Active Allergy Reactions Criticality Noted Date Comments Lurasidone Other (see comments) 09/26/2020 Elevated Blood glucose Medications ascorbic acid (VITAMIN C) 500 MG CR capsule Take 1 capsule by mouth 2 (two) times a day Active atorvastatin (LIPITOR) 20 MG tablet Take 1 tablet by mouth 1 (one) time each day Active buPROPion XL (WELLBUTRIN XL) 300 MG 24 hr tablet Take 1 tablet by mouth every morning Active fenofibrate (TRIGLIDE) 160 MG tablet Take 1 tablet by mouth 1 (one) time each day Active ferrous sulfate 325 (65 Fe) MG tablet Take 1 tablet by mouth 2 (two) times a day Active folic acid (FOLVITE) 1 MG tablet Take 1 tablet by mouth 1 (one) time each day Active Insulin Glargine, 1 Unit Dial, 300 UNIT/ML solution pen-injector Inject 60 Units under the skin at bed time Active omeprazole (PriLOSEC) [address] capsule Take 1 capsule by mouth 1 (one) time each day Active busPIRone (BUSPAR) 10 MG tablet Take 10 mg by mouth 2 (two) times a day 08/02/2020 Active Bydureon BCise 2 MG/0.85ML auto-injector INJECT ONCE EVERY WEEK DIRECTED 08/31/2020 Active metFORMIN (GLUCOPHAGE) 500 MG tablet Take 1,000 mg by mouth 2 (two) times a day 09/11/2020 Active venlafaxine XR (EFFEXOR-XR) 150 MG 24 hr capsule Take 150 mg by mouth 1 (one) time each day 09/15/2020 Active lamoTRIgine (LaMICtal) 150 MG tablet Take 150 mg by mouth 1 (one) time each day 10/16/2020 Active nitroglycerin (NITROSTAT) 0.4 MG SL tablet 11/27/2020 Active clonazePAM (KlonoPIN) 1 MG tablet 04/10/2021 Active HumaLOG KWIKPEN 100 UNIT/ML solution pen-injector 04/17/2021 Active [facility] Vitamin C 500 MG tablet 05/31/2021 Activ e venlafaxine XR (EFFEXOR-XR) 75 MG 24 hr capsule Take 75 mg by mouth 1 (one) time each day Do not crush or chew. Active Active Problems Problem Noted Date Diagnosed Date Chronic kidney disease stage 3 09/25/2020 Diabetic dyslipidemia associ ated with type 2 diabetes mellitus 09/25/2020 Severe obesity 09/25/2020 Type 2 diabetes mellitus 09/25/2020 Resolved Problems Problem Noted Date Diagnosed Date Resolved Date Hypertensive disorder 09/25/20202020 Family History Relation Status Comments Father Mother Social History Tobacco Use Types Packs/Day Years Used Date Smoking Tobacco: Former Cigarettes Q uit: 06/27/2015 Smokeless Tobacco: Former Comments Unknown Sex and Gender Information Value Date Recorded Sex Assigned at Not on file Legal Sex Female 5:18 PM EST Gender Identity Not on file Sexual Orientation Not on file Last Filed Vital Signs Vital Sign Reading Time Taken Comments Blood Pressure 106/66 06/01/2021 2:22 PM EST Pulse 73 06/01/2021 2:22 PM EST Temperature - - Respiratory Rate - - Oxygen Saturation 97% 06/01/2021 2:22 PM EST Inhaled Oxygen Concentration - - Weight 110 kg (242 lb 12.8 oz) 06/01/2021 2:22 P M EST Height 167.6 cm (5' 6 ) 09/26/2020 3:43 PM EDT Body Mass Index 39.19 09/26/2020 3:43 PM EDT Plan of Treatment Health Maintenance Due Date Last Done Comments Breast Cancer Screening 1965 Pneumococcal Vaccine: Pediat rics (0 to 5 Years) and At-Risk Patients (6 to 64 Years) (1 of 2 - PCV) 1971 Hepatitis B Vaccine (1 of 3 - 19+ 3-dose series) 07/14 /1984 Colorectal Cancer Screening: Annual FOBT 2014 Colorectal Cancer Screening: Colonoscopy 2014 Colorectal Cancer Screening: Sigmoidoscopy 2014 Diabetes: Ophthalmology Exam 07/28/2020 Diabetes: Pedal Pulse Checked 07/28/2020 Diabetes: Sensory Foot Exam 07/28/2020 Diabetes: Visual Foot Exam 07/28/2020 Diabetes: Hemoglobin A1C 08/14/2020 05/14/2020 Influenza Vaccine (#1) 2024 Procedures Procedure Name Priority Date/Time Associated Diagnosis Comments BLOOD PANEL (HC) Routine 05/14/2020 12:0 0 AM EST from Last 3 Months or Most Recently Relevant to Health Maintenance Results * (ABNORMAL) Blood Panel (05/14/2020 12:00 AM EST) Hemoglobin A1C 5.7(H) <5 % PVNMA 05/14/2020 [facility] [id number] LICITED RESULTS Final Result PVNMA from Last 3 Months or Most Recently Relevant to Health Maintenance Insurance [facility] MEDICAID [facility] MEDICAID Care Teams Production Control Expert Relationship Specialty Start Date End Date Diamond Velasquez MD [address] [place], [place] PCP - General 07/07/20
[2024-08-31 07:52] LABS: MANUAL DIFF FLAG NO
[2024-08-31 08:31] LABS: Basophils Absolute Auto 0.1 X10*3/uL (0.0-0.2); Eosinophils Absolute Auto 0.3 X10*3/uL (0.0-0.4); Hematocrit 40.7 % (37.0-47.0); Hemoglobin 13.8 g/dl (12.0-16.0); Imm Gran Abs Auto 0.04 X10*3/uL (0.00-0.03); Imm Gran Pct Auto 0.6 % (0.0-0.4); Lymphocytes Absolute Auto 1.4 X10*3/uL (1.2-4.9); Lymphocytes Percent Auto 21.9 % (20-40); Mean Corpuscular HGB Conc 33.9 g/dl (31.0-35.0); Mean Corpuscular Hemoglobin 29.7 pg (27.0-33.0); Mean Corpuscular Volume 87.7 fL (80.0-98.0); Mean Platelet Volume 10.7 fL (9.4-12.3); Monocytes Absolute Auto 0.6 X10*3/uL (0.1-1.2); Monocytes Percent Auto 9.2 % (2-11); Neutrophils Absolute Auto 3.9 x10*3/uL (2.0-8.3); Neutrophils Percent Auto 62.3 % (45-73); Platelet Count 247 X10*3/uL (160-400); Red Blood Count 4.64 X10*6/uL (4.20-5.50); Red Cell Distribution Width 13.3 % (11.0-16.0); White Blood Count 6.2 X10*3/uL (4.8-10.8)
[2024-08-31 09:06] LABS: Creatinine Urine 33.76 mg/dL; Microalbum/Creatinine Ratio Ur 79.9 ug/mg cr (<30)
[2024-08-31 09:19] LABS: Alanine Aminotransferase 29 U/L (0-31); Albumin Level 4.2 g/dL (3.5-5.0); Alkaline Phosphatase 57 U/L (39-117); Anion Gap 11 (12-20); Aspartate Amino Transferase 24 U/L (5-31); Bilirubin Total 0.4 mg/dL (0.0-1.0); Blood Urea Nitrogen 15 mg/dL (9-16); Calcium 9.6 mg/dL (8.4-10.2); Carbon Dioxide 28 mmol/L (22-29); Chloride 106 mmol/L (96-108); Cholesterol 170 mg/dL (<200); Estimated Glomerular Filt Rate 49; Glucose Random 169 mg/dL (60-115); HDL Cholesterol 45 mg/dL (>40); LDL Cholesterol Calculated 89 mg/dL (<100); Potassium 3.9 mmol/L (3.3-5.1); Sodium 141 mmol/L (135-145); Total Protein 7.5 g/dL (6.5-8.0); Triglycerides 184 mg/dL (<150)
[2024-08-31 09:35] LABS: Free T4 (Free Thyroxine) 0.97 ng/dL (0.71-1.85); Thyroid Stimulating Hormone 0.92 uIU/mL (0.32-4.0); Vitamin D 25-OH Total 27.2 ng/mL (>30)
[2024-08-31 09:45] LABS: Folate > 20.0 ng/mL (> or = 4.0); Vitamin B12 312 pg/mL (200-900)
== END 2024-08-31 07:38 | disposition home or self-care (01) ==
LOC: HO.LAB 07:37
PROVIDERS: PCP Internal Medicine; Visit Provider Internal Medicine
DX: E11.65 Type 2 diabetes mellitus with hyperglycemia (principal); Z79.4 Long term (current) use of insulin; E78.00 Pure hypercholesterolemia, unspecified
CPT/HCPCS: 36415; 80053; 80061; 82043; 82306; 82570; 82607; 82746; 84439; 84443; 85025

== ENCOUNTER 2024-09-19 11:05 | Outpatient (REF) | payer OTHER, SELFPAY ==
--- OUTSIDE RECORDS SUMMARY | 2024-09-19 13:23 | XMS_ITS | Clinical Summary ---
Author Organization [facility] Address [address] [place] [address] Phone Care Team Providers Care Collections Specialist Name Role Phone Diamond Velasquez MD Primary Care Provider [phone] Allergies Active Allergy Reactions Criticality Noted Date [...] % PVNMA 05/14/2020 [facility] [id number] LICITED RESULTS Final Result PVNMA from Last 3 Months or Most Recently Relevant to Health Maintenance Insurance [facility] MEDICAID [facility] MEDICAID Care Teams Collections Specialist Relationship Specialty Start Date End Date Diamond Velasquez MD [address] [place], [place] PCP - General 07/07/20
== END 2024-09-19 11:06 | disposition home or self-care (01) ==
LOC: HO.HAP 11:05
PROVIDERS: Visit Provider Internal Medicine
DX: Z46.1 Encounter for fitting and adjustment of hearing aid (principal); H90.3 Sensorineural hearing loss, bilateral
CPT/HCPCS: V5266

== ENCOUNTER 2024-11-02 11:06 | Outpatient (REF) | payer OTHER, SELFPAY ==
--- OUTSIDE RECORDS SUMMARY | 2024-11-02 11:36 | XMS_ITS | Clinical Summary ---
Author Organization [facility] Address [address] [place] [address] Phone Care Team Providers Care Change Management Lead Name Role Phone Diamond Velasquez MD Primary Care Provider [phone] Allergies Active Allergy Reactions Criticality Noted Date [...] Last Done Comments Breast Cancer Screening 1965 Hepatitis B Vaccine (1 of 3 - 19+ 3-dose series) 01/07 Pneumococcal Vaccine: 50+ Years (1 of 2 - PCV) 984 Colorectal Cancer Screening: Annual FOBT 2014 Colorectal Cancer Screening: Colonoscopy 2014 Colorectal Cancer Screening: Sigmoidoscopy 2014 Diabetes: Ophthalmology Exam 07/28/2020 Diabetes: Pedal Pulse Checked 07/28/2020 Diabetes: Sensory Foot Exam 07/28/2020 Diabetes: Visual Foot Exam 07/28/2020 Diabetes: Hemoglobin A1C 08/14/2020 05/14/2020 Influenza Vaccine (Season Ended) 2025 Procedures Procedure Name Priority Date/Time Associated Diagnosis Comments BLOOD PANEL (HC) Routine 05/14/2020 12:0 0 AM EST from Last 3 Months or Most Recently Relevant to Health Maintenance Results * (ABNORMAL) Blood Panel (05/14/2020 12:00 AM EST) Hemoglobin A1C 5.7(H) <5 % PVNMA 05/14/2020 [facility] [id number] LICITED RESULTS Final Result PVNMA from Last 3 Months or Most Recently Relevant to Health Maintenance Insurance [facility] Medicaid Care Teams Change Management Lead Relationship Specialty Start Date End Date Diamond Velasquez MD [facility] [address] [place], [place] PCP - General 07/07/20
== END 2024-11-02 11:07 | disposition home or self-care (01) ==
LOC: HO.HAP 11:06
PROVIDERS: Visit Provider Internal Medicine
DX: Z46.1 Encounter for fitting and adjustment of hearing aid (principal)
CPT/HCPCS: V5266

== ENCOUNTER 2024-11-28 10:15 | Outpatient (REF) | payer OTHER, SELFPAY ==
--- OUTSIDE RECORDS SUMMARY | 2024-11-28 10:53 | XMS_ITS | Clinical Summary ---
Author Organization [facility] Address [address] [place] [address] Phone Care Team Providers Care Application Helper Name Role Phone Diamond Velasquez MD Primary Care Provider [phone] Allergies Active Allergy Reactions Criticality Noted Date [...] % PVNMA 05/14/2020 [facility] [id number] LICITED RESULTS Final Result PVNMA from Last 3 Months or Most Recently Relevant to Health Maintenance Insurance [facility] Medicaid Care Teams Application Helper Relationship Specialty Start Date End Date Diamond Velasquez MD [facility] [address] [place], [place] PCP - General 07/07/20
== END 2024-11-28 10:16 | disposition home or self-care (01) ==
LOC: HO.HAP 10:15
PROVIDERS: Visit Provider Internal Medicine
DX: Z46.1 Encounter for fitting and adjustment of hearing aid (principal); H90.3 Sensorineural hearing loss, bilateral
CPT/HCPCS: 92593; V5014; V5266

== ENCOUNTER 2024-12-21 08:32 | Outpatient (REF) | payer OTHER, SELFPAY ==
--- OUTSIDE RECORDS SUMMARY | 2024-12-21 08:43 | XMS_ITS | Clinical Summary ---
Author Organization [facility] [place] Address [address] [place] [address] Phone Care Team Providers Care Whipped Topping Supervisor Name Role Phone Diamond Velasqeuz MD Primary Care Provider [phone] Allergies Active Allergy Reactions Criticality Noted Date [...] % PVNMA 05/14/2020 [facility] [id number] LICITED RESULTS Final Result PVNMA from Last 3 Months or Most Recently Relevant to Health Maintenance Insurance [facility] Medicaid Care Teams Whipped Topping Supervisor Relationship Specialty Start Date End Date Diamond Velasquez MD [facility] [address] [place], [place] PCP - General 07/07/20
== END 2024-12-21 08:33 | disposition home or self-care (01) ==
LOC: HO.MAMMO 08:32
PROVIDERS: PCP Internal Medicine; Visit Provider Internal Medicine
DX: Z12.31 Encounter for screening mammogram for malignant neoplasm of breast (principal)
CPT/HCPCS: 77063; 77067

== ENCOUNTER → 2024-12-21 08:45 | Outpatient (BNV) | payer OTHER, SELFPAY | PROVIDERS: PCP Internal Medicine; Visit Provider Internal Medicine | DX: Z12.31 Encounter for screening mammogram for malignant neoplasm of breast (principal) | CPT/HCPCS: 77063; 77067 ==

== ENCOUNTER 2025-01-01 11:02 | Outpatient (REF) | payer OTHER, SELFPAY ==
--- OUTSIDE RECORDS SUMMARY | 2025-01-01 12:08 | XMS_ITS | Clinical Summary ---
Author Organization [facility] Address [address] [place] [address] Phone Care Team Providers Care Setter Cold Rolling Machine Name Role Phone Diamond Velasquez MD Primary Care Provider [phone] Allergies Active Allergy Reactions Criticality Noted Date [...] Hemoglobin A1C 08/14/2020 05/14/2020 Influenza Vaccine (#1) 2025 Procedures Procedure Name Priority Date/Time Associated Diagnosis Comments BLOOD PANEL (HC) Routine 05/14/2020 12:0 0 AM EST from Last 3 Months or Most Recently Relevant to Health Maintenance Results * (ABNORMAL) Blood Panel (05/14/2020 12:00 AM EST) Hemoglobin A1C 5.7(H) <5 % PVNMA 05/14/2020 [facility] [id number] LICITED RESULTS Final Result PVNMA from Last 3 Months or Most Recently Relevant to Health [place] [address] [facility] [place] [address] Care Teams Setter Cold Rolling Machine Relationship Specialty Start Date End Date Diamond Velasquez MD [facility] [address] [place], [place] PCP - General 07/07/20
== END 2025-01-01 11:03 | disposition home or self-care (01) ==
LOC: HO.HAP 11:02
PROVIDERS: Visit Provider Internal Medicine
DX: Z46.1 Encounter for fitting and adjustment of hearing aid (principal); H90.3 Sensorineural hearing loss, bilateral
CPT/HCPCS: V5266

== ENCOUNTER 2025-01-31 09:37 | Outpatient (REF) | payer OTHER, SELFPAY ==
--- OUTSIDE RECORDS SUMMARY | 2025-01-31 10:05 | XMS_ITS | Clinical Summary ---
Author Organization [facility] Address [address] [place] [address] Phone Care Team Providers Care Alarm Security Or Surveillance Monitor Name Role Phone Diamond Velasquez MD Primary Care Provider [phone] Allergies Active Allergy Reactions Criticality Noted Date [...] Comments Breast Cancer Screening 1965 Pneumococcal Vaccine: 50+ Ye ars (1 of 2 - PCV) 01/08/1984 Colorectal Cancer Screening: Annual FOBT 2014 Colorectal Cancer Screening: Colonoscopy 2014 Colorectal Cancer Screening: Sigmoidoscopy 2014 Diabetes: Ophthalmology Exam 07/28/2020 Diabetes: Pedal Pulse Checked 07/28/2020 Diabetes: Sensory Foot Exam 07/28/2020 Diabetes: Visual Foot Exam 07/28/2020 Diabetes: Hemoglobin A1C 08/14/2020 05/14/2020 Influenza Vaccine (#1) 2025 Hepatitis B Vaccine Aged Out No longe r eligible based on patient's age to complete this topic Procedures Procedure Name Priority Date/Time Associated Diagnosis Comments BLOOD PANEL (HC) Routine 05/14/2020 12:0 0 AM EST from Last 3 Months or Most Recently Relevant to Health Maintenance Results * (ABNORMAL) Blood Panel (05/14/2020 12:00 AM EST) Hemoglobin A1C 5.7(H) <5 % PVNMA 05/14/2020 [facility] [id number] LICITED RESULTS Final Result PVNMA from Last 3 Months or Most Recently Relevant to Health Maintenance Insurance [facility] Medicaid [facility] Medicaid Care Teams Alarm Security Or Surveillance Monitor Relationship Specialty Start Date End Date Diamond Velasquez MD [facility] [address] [place], [place] PCP - General 07/07/20
== END 2025-01-31 09:38 | disposition home or self-care (01) ==
LOC: HO.SH 09:37
PROVIDERS: Visit Provider Internal Medicine
DX: H90.3 Sensorineural hearing loss, bilateral (principal)
CPT/HCPCS: V5266

== ENCOUNTER 2025-03-04 09:31 | Outpatient (REF) | payer OTHER, SELFPAY ==
--- OUTSIDE RECORDS SUMMARY | 2025-03-04 10:48 | XMS_ITS | Clinical Summary ---
Author Organization [facility] Address [address] [place] [address] Phone Care Team Providers Care Chartered Accountant Name Role Phone Diamond Velasquez MD Primary Care Provider [phone] Allergies Active Allergy Reactions Criticality Noted Date [...] % PVNMA 05/14/2020 [facility] [id number] LICITED RESULTS Final Result PVNMA from Last 3 Months or Most Recently Relevant to Health Maintenance Insurance [facility] Medicaid [facility] Medicaid Care Teams Chartered Accountant Relationship Specialty Start Date End Date Diamond Velasquez MD [facility] [address] [place], [place] PCP - General 07/07/20
== END 2025-03-04 09:32 | disposition home or self-care (01) ==
LOC: HO.HAP 09:31
PROVIDERS: Visit Provider Internal Medicine
DX: Z46.1 Encounter for fitting and adjustment of hearing aid (principal); H90.3 Sensorineural hearing loss, bilateral
CPT/HCPCS: V5266

== ENCOUNTER 2025-04-03 11:01 | Outpatient (REF) | payer OTHER, SELFPAY | END 2025-04-03 11:02 | disposition home or self-care (01) | LOC: HO.HAP 11:01 | PROVIDERS: Visit Provider Internal Medicine | DX: Z46.1 Encounter for fitting and adjustment of hearing aid (principal); H90.2 Conductive hearing loss, unspecified | CPT/HCPCS: V5266 ==

== ENCOUNTER 2025-05-06 11:03 | Outpatient (REF) | payer OTHER, SELFPAY ==
--- OUTSIDE RECORDS SUMMARY | 2025-05-06 13:24 | XMS_ITS | Clinical Summary ---
Author Organization [facility] [place] Address [address] [place] [address] Phone Care Team Providers Care Scissors Grinder Name Role Phone Diamond Velasquez MD Primary Care Provider [phone] Allergies Active Allergy Reactions Criticality Noted Date [...] % PVNMA 05/14/2020 [facility] [id number] LICITED RESULTS Final Result PVNMA from Last 3 Months or Most Recently Relevant to Health Maintenance Insurance [facility] Medicaid [facility] Medicaid Care Teams Scissors Grinder Relationship Specialty Start Date End Date Diamond Velasquez MD [facility] [address] [place], [place] PCP - General 07/07/20
== END 2025-05-06 11:04 | disposition home or self-care (01) ==
LOC: HO.HAP 11:03
PROVIDERS: Visit Provider Internal Medicine
DX: Z46.1 Encounter for fitting and adjustment of hearing aid (principal); H90.3 Sensorineural hearing loss, bilateral
CPT/HCPCS: V5266

== ENCOUNTER 2025-05-09 10:49 | Outpatient (AMB) | payer OTHER, SELFPAY ==
[2025-05-09 11:10] VITALS: BP 136/70; PULSE 74; O2SAT 96; BMI 37.4
--- NOTE | 2025-05-09 11:10 | MHC.PC.OV ---
Vital Signs 05/09/25 11:10 Height 5 ft 6 in Weight 232 lb BMI 37.4 BP 136/70 Blood Pressure Location Lt brachial Position Sitting Pulse 74 Pulse Source Pulse Oximeter Pulse Oximetry (%) 96 Oxygen Delivery Method Room Air Intake Visit Reasons: Annual Physical- A1C needed Allergies lurasidone (From [facility]) Allergy (Severe, Verified 05/09/25 11:11) SEVERE HIGH BLOOD SUGARS Medication List - Last Reconciled 05/09/25 by Diamond Velasquez MD ascorbic acid (vitamin C) 500 mg PO BID aspirin (Bacilio Low Dose Aspirin) 81 mg PO DAILY atorvastatin 20 mg PO DAILY bupropion HCl XL 300 mg PO QAM buspirone 30 mg PO BID clonidine HCl 0.1 mg PO BEDTIME PRN dulaglutide (Trulicity) 0.75 mg (0.5 mL) subcut QWEEK fenofibrate 160 mg PO DAILY ferrous sulfate 325 mg PO BID folic acid 1 mg PO DAILY insulin aspart U-100 (Novolog FlexPen U-100 Insulin aspart) 3 units (0.03 mL) subcut TID 30 days insulin glargine (Lantus Solostar U-100 Insulin) 30 units (0.3 mL) subcut BEDTIME 30 days lamotrigine 150 mg PO BID lisinopril 2.5 mg PO DAILY 90 days metformin 500 mg PO QAM omeprazole 20 mg PO DAILY paroxetine HCl 10 mg PO DAILY pen needle, diabetic (BD Shelly 2nd Gen Pen Needle) 5 times a day thiamine HCl (vitamin B1) 100 mg PO DAILY Tobacco use date assessed: 05/09/25 Dental Screening Dental Screen Date: 05/09/25 Did you have a dental visit in the last 12 months?: No Did you have a dental problem in the last 6 months where you did not have access to dental care?: No Was dental information given to patient?: Patient has dentist HPI Annual Physical- A1C needed HPI Details occ dizzy, chest pain not related to exertion but gets sob, 2 months PFSH Medical History (Updated 05/16/24 @ 10:47 by Diamond Velasquez MD) Preoperative cardiovascular examination Preop examination Leg pain Bilateral calf pain Precordial chest pain Abnormal stress test Chest pain Diabetes type 2, controlled Anxiety COVID-19 vaccination declined Hard of hearing Hearing loss in left ear Tear of meniscus of left knee Cataract Osteoarthritis, knee Interstitial cystitis CKD stage 3 due to type 2 diabetes mellitus GERD (gastroesophageal reflux disease) Bipolar disorder ROD (obstructive sleep apnea) Morbid obesity Dyslipidemia Hypertension Diabetic polyneuropathy associated with type 2 diabetes mellitus 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 mellitus 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 Surgical History Hx of cystoscopy History of esophagogastroduodenoscopy (EGD) History of cardiac catheterization (~10/2020) History of open reduction and internal fixation (ORIF) procedure History of arthroplasty of right knee History of tonsillectomy History of bladder suspension procedure Hx of tubal ligation History of hernia surgery Family History Father Brain tumor Mother CVA (cerebral vascular accident) Thyroid disease Hypertension Depression Daughter Substance abuse Maternal Grandfather CVA (cerebral vascular accident) Maternal Grandmother Diabetes Social History (Updated 05/09/25 @ 11:42 by Diamond Velasquez MD) Household Members: None Housing: Apartment Are you a primary long term care social worker to a significant other at home: No Do you presently have visiting nurse or other home services: No Alcohol intake: never Patient Tobacco Use Status: Former Tobacco user Tobacco use type: Cigarette Years Smoked: 35, stopped 2014 e-Cigarette/Vaping Use: Never Used Second Hand Smoke Exposure: No Advance Directives Date on File: 04/01/20 service: No Current occupational status: unemployed Current occupation: left hand dominant Cognitive needs: No Hearing needs: Yes (hearing aides) Vision needs: No Questionnaire PHQ-9 Over the last 2 weeks, how often have you been bothered by any of the following problems? 1. Little interest or pleasure in doing things: more than half the days 2. Feeling down, depressed, or hopeless: several days 3. Trouble falling or staying asleep, or sleeping too much: not at all 4. Feeling tired or having little energy: several days 5. Poor appetite or overeating: more than half the days 6. Feeling bad about yourself - or that you are a failure or have let yourself or your family down: not at all 7. Trouble concentrating on things, such as reading the newspaper or watching television: not at all 8. Moving or speaking so slowly that other people could have noticed. Or the opposite - being so fidgety or restless that you have been moving around a lot more than usual: not at all 9. Thoughts that you would be better off or of hurting yourself in some way: more than half the days Total score: 8 Depression Screening Interpretation: Positive Depression Screening Done: Yes Source: Developed by Drs. Brennen Sánchez, Fernanda Laird, Glenn Thapa and colleagues, with an educational juan f from [employer]. Thrive Questionnaire Date Thrive assessed: 05/09/25 I am a: Patient What is your living situation today?: I have a steady place to live Within the past 12 months, did the food you bought not last and you didn't have the money to get more?: Never true Within the past 12 months, did you worry whether your food would run out before you got money to buy more?: Never true Do you have trouble paying for medicines?: No Do you have trouble getting transportation to medical appointments?: No Do you have trouble paying your heating and electricity bill?: No Do you have trouble taking care of your child, family member or friend?: No Do you have trouble with day-to-day activities such as bathing, preparing meals, shopping, managing finances, etc.?: No Are you currently unemployed and looking for a job?: No Are you interested in more education?: No Please select the resources that you would like help with: None Currently or been in a relationship where the following occur: No concerns reported THRIVE Score: 0 AUDIT C Alcohol Use Questionnaire (AUDIT-C) 1. How often do you have a drink containing alcohol?: Never 2. How many drinks containing alcohol do you have on a typical day when you are drinking?: 1 or 2 (0) 3. How often do you have six or more drinks on one occasion?: Never Total Score: 0 JUANPABLO-7 AMB Questionnaire JUANPABLO-7 Date JUANPABLO - 7 assessed: 05/09/25 Feeling nervous, anxious, or on edge: 2 = More than half the days Not being able to stop or control worryin = Several days Worrying too much about different things: 1 = Several days Trouble relaxin = More than half the days Being so restless that it is hard to sit still: 2 = More than half the days Becoming easily annoyed or irritable: 1 = Several days Feeling afraid as if something awful might happen: 1 = Several days Total JUANPABLO-7 score (0-4 normal; 5-9 mild; 10-14 moderate; 15-21 severe): 10 Source: Developed by Drs. Brennen Sánchez, Fernanda Laird, Glenn Thapa and colleagues, with an educational juan f from [employer]. Physical exam (Primary Care) Vital Signs: Last Vital Signs Pulse 74 05/09/25 11:10 BP 136/70 05/09/25 11:10 Pulse Ox 96 05/09/25 11:10 Oxygen Delivery Method Room Air 05/09/25 11:10 BMI result Body Mass Index 37.4 Tobacco/Smoking Status: Tobacco use Status Tobacco use date assessed 05/09/25 05/09/25 11:12 Patient Tobacco Use Status Former Tobacco user 05/09/25 11:12 Tobacco use type Cigarette 05/09/25 11:12 e-Cigarette/Vaping Use Never Used 05/09/25 11:12 PHQ-9: PHQ-9 Score PHQ-9: Total score 8 05/09/25 11:32 Depression Screening Interpretation: Positive Thrive Assessment: Date of Thrive Assessment Date Thrive assessed 05/09/25 05/09/25 11:12 Currently or been in a relationship where the following occur: No concerns reported Const General: alert and awake HENMT Head: Yes normocephalic Ears: external ears normal and TM's normal bilaterally Face and sinus: Yes normal facial exam Mouth: moist mucous membranes Throat: Yes tonsils normal Eyes Conjunctivae: conjunctivae normal Pupils: Equal, round and reactive pupils present and Pupil accommodation reflex normal Direct Ophthalmoscopy: normal light reflex Neck Neck: No lymphadenopathy Thyroid: Thyroid normal Chest Chest palpation & inspection: normal inspection of the chest Resp Effort & Inspection: normal respiratory effort and no audible wheezes Auscultation: clear to auscultation bilaterally, no crackles, no wheezes and lung sounds not diminished Cardio Rate: regular rate Rhythm: regular rhythm Peripheral pulses: radial pulses present and dorsalis pedis present GI Palpation (GI): no masses Auscultation: normal bowel sounds and normoactive bowel sounds Rectal Exam - Female: deferred Skin General skin exam: no rashes or lesions noted Rashes: no rashes Neuro General: deep tendon reflexes 2+ bilaterally Cranial nerves: Yes Equal, round and reactive pupils present, Yes Midline tongue present and Yes Ability to bilaterally elevate shoulders present Cognition (Neuro): normal cognition Gait exam (Neuro): Normal gait present Motor exam (neuro): 5/5 motor strength present throughout Deep tendon reflexes (DTR's): Right brachioradialis reflex intensity grade: 2+, Left brachioradialis reflex intensity grade: 2+, Right patellar reflex intensity grade: 2+ and Left patellar reflex intensity grade: 2+ Extrem General: No edema Results AMB Hemoglobin A1c AMB Hemoglobin A1c 9.7 % Last Edit by Sandra Lieberman CMA on 05/09/25 11:33 Results Reviewed Results Reviewed: Laboratory Last Values Hgb A1c (Clinic) 9.7 % (4.0-6.0) H 05/09/25 11:13 Coding Level of Care Code Est Pt Prev Care 40-64y(37421) Diagnoses Annual physical exam Z00.00 Type 2 diabetes mellitus with hyperglycemia, with long-term current use of insulin E11.65; Z79.4 Diabetes mellitus correction insulin use: with correction use Essential hypertension I10 Hypertension type: essential hypertension Dyslipidemia E78.5 PAD (peripheral artery disease) I73.9 Class 2 severe obesity due to excess calories with serious comorbidity and body mass index (BMI) of 37.0 to 37.9 in adult E66.01; Z68.37 Obesity classification: adult class 2 (BMI 35 - 39.9) Serious obesity comorbidity presence: with serious comorbidity Body mass index: BMI 37.0-37.9 Gastroesophageal reflux disease without esophagitis K21.9 Esophagitis presence: without esophagitis CKD stage 3 due to type 2 diabetes mellitus E11.22; N18.30 ROD (obstructive sleep apnea) G47.33 Assessment & Plan Assessment & Plan (1) Annual physical exam: Code(s): Z00.00 - Encounter for general adult medical examination without abnormal findings Category: Medical Plan: Patient is advised to eat healthy, keep well hydrated, keep active and have adequate sleep. 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 Hemoglobin A1c goal of less than 6.5. On Trulicity 0.75 mg once a week NovoLog insulin and Lantus metformin 500 mg once a day (3) Hypertension: Code(s): I10 - Essential (primary) hypertension Category: Medical Qualifiers: Hypertension type: essential hypertension Qualified Code(s): I10 - Essential (primary) hypertension Plan: Continue with blood pressure medication. Decrease salt intake and exercise takes lisinopril 2.5 mg once a day clonidine 0.1 mg at bedtime (4) Dyslipidemia: Code(s): E78.5 - Hyperlipidemia, unspecified Category: Medical Plan: Avoid fried foods, chicken skin, eggs, butter margarine, pastries and meat. Be it pork or beef they have a lot of cholesterol LDL goal of less than 100 and triglyceride of less than 150 August 2024 last blood work (5) PAD (peripheral artery disease): Code(s): I73.9 - Peripheral vascular disease, unspecified Category: Medical Plan: When sitting down elevate the legs, exercise, and support stockings patient does follow-up with vascular (6) Obesity due to excess calories: Code(s): E66.09 - Other obesity due to excess calories Category: Medical Qualifiers: Obesity classification: adult class 2 (BMI 35 - 39.9) Serious obesity comorbidity presence: with serious comorbidity Body mass index: BMI 37.0-37.9 Qualified Code(s): E66.01 - Morbid (severe) obesity due to excess calories; Z68.37 - Body mass index [BMI] 37.0-37.9, adult Plan: noted to have lost 10 lb. Continue with diet and exercise (7) GERD (gastroesophageal reflux disease): Code(s): K21.9 - Gastro-esophageal reflux disease without esophagitis Category: Medical Qualifiers: Esophagitis presence: without esophagitis Qualified Code(s): K21.9 - Gastro-esophageal reflux disease without esophagitis Plan: Avoid the foods that causes that usually spicy foods, tomato products, juices, coffee, soda and foods that your sensitive to. After eating do not lie down, allow 3-4 hours before in lie down. And keep the head of bed above 30 degrees to avoid the acid from going up. (8) CKD stage 3 due to type 2 diabetes mellitus: Code(s): E11.22 - Type 2 diabetes mellitus with diabetic chronic kidney disease; N18.30 - Chronic kidney disease, stage 3 unspecified Category: Medical Plan: Keep well hydrated avoid NSAIDs (9) ROD (obstructive sleep apnea): Comment: Cannot tolerate CPAP Code(s): G47.33 - Obstructive sleep apnea (adult) (pediatric) Category: Medical Plan: discussed about importance of sleep apnea treatment Plan History of Present Illness The patient is a 60-year-old obese female presenting for a physical exam. She was last seen in April 2024 and has experienced a 10-pound weight loss since. Her medical history is significant for type 2 diabetes mellitus, with a recent hemoglobin A1c of 9.7%, an increase from a previous value of 6.8%. Her blood sugar in August 2024 was 169. Her medication regimen includes Trulicity 0.75 mg weekly, NovoLog, Lantus, and metformin 500 mg daily. She also has a history of hypertension, hypercholesterolemia, peripheral arterial disease, obstructive sleep apnea for which she cannot tolerate CPAP, bipolar disorder, chronic kidney disease, monoclonal gammopathy of undetermined significance (MGUS), and gastroesophageal reflux. Her renal function has been stable with a creatinine of 1.13, and her LDL cholesterol is 89 mg/dL with triglycerides of 184 mg/dL as of August 2024. She follows up with a vascular specialist for her peripheral vascular disease. For health maintenance, her last Cologuard test was in March 2023, which was negative, though she has previously declined a colonoscopy. Her mammogram is up to date. An eye exam in November revealed vitreomacular adhesion and non-visually significant cataracts, with no evidence of diabetic retinopathy. Patient has a family history of a brain tumor in her father, and cancer in her father and uncle, likely from smoking. Both her mother and grandfather had strokes. She denies any family history of heart attacks. Socially, the patient quit smoking 10 years ago and does not consume alcohol. Her physical activity consists of walking. Health Maintenance - Colon cancer screening: Last Cologuard was performed in March 2023 and was negative. - Breast cancer screening: Mammogram is up to date. - Diabetic eye exam: Performed in November, showing non-visually significant cataracts and no retinopathy. - Vaccinations: Pneumonia shot is up to date. Tetanus shot is due next year. Discussed shingles vaccination series (Shingrix) and offered flu shot, which the patient declined. - Sleep hygiene: The importance of treating sleep apnea was discussed. - Diet and exercise: Encouraged to continue with diet, exercise, and stay well-hydrated to aid in weight management and chronic kidney disease management. Social History - The patient denies alcohol use. - She has a history of smoking but quit 10 years ago. - Her exercise regimen includes walking. Review of Systems - Constitutional: Denies syncope. - HEENT: Reports occasional, non-worsening dizziness. Denies problems with swallowing. Reports hearing is good. - Cardiovascular: Reports intermittent chest pain that occurs suddenly, lasts for a couple of minutes, and is associated with shortness of breath. Denies exertional chest pain. - Respiratory: Denies waking up short of breath. Reports shortness of breath with chest pain. - Gastrointestinal: Denies nausea, vomiting, or heartburn. Reports good bowel movements and denies constipation. - Genitourinary: Reports polyuria but attributes it to high fluid intake. Reports nocturia, waking up twice per night. - Neurological: Denies pins and needles in feet but reports ankle pain. - Skin: Reports an intermittent rash described as chicken skin that improves with cream. Physical Exam General: Cooperative, healthy appearing, comfortable, no acute distress and well developed Orientation: Patient oriented x3 Limitations: No limitations Head: Normal to inspection Ears: Hearing grossly normal bilaterally Nose: Normal external nose present Face and sinus: Normal facial exam Eyes: Appearance normal, both eyes and all related structures Neck: Normal visual inspection and Yes full ROM Respiratory: Normal respiratory effort and able to speak in complete sentences. Clear to auscultation bilaterally Cardiovascular: Regular rate and rhythm. Normal S1 and S2 GI: Normal to inspection. Soft to palpation and nontender Skin: Rash noted, possibly eczema. Recommended hydrocortisone cream for treatment. Neuro: Patient oriented x3 Extremities: Normal to inspection, slight tenderness noted in the stomach area. Results - Labs (current): Hemoglobin A1c is 9.7%, up from a prior value of 6.8%. - Labs (August 2024): Blood count was normal. Creatinine was stable at 1.13. Blood sugar was 169. LDL was 89, and triglycerides were 184. Vitamin D was low. Thyroid function was normal. - Urinalysis (previous): Showed proteinuria. - Other diagnostics: Cologuard test from March 2023 was negative. A nuclear stress test performed four years ago was fine. An ultrasound of the heart showed impaired relaxation. Plan Patient was informed and verbally consented to the use of an ambient scribe for clinic note documentation during this visit. 1. Type 2 Diabetes Mellitus With Hyperglycemia The patient's hemoglobin A1c is significantly elevated at 9.7%, a notable increase from the previous 6.8%. The goal remains an A1c of less than 6.5%. A request for complete blood work, including a repeat hemoglobin A1c, will be provided for the patient to complete in three months. If the levels do not improve, medication adjustments will be considered. The patient will continue their current regimen of Trulicity, NovoLog, Lantus, and metformin. 2. Mixed Hyperlipidemia Recent labs show an LDL of 89 mg/dL, which is within the goal of less than 100, but triglycerides are elevated at 184 mg/dL against a goal of less than 150. Continue current therapy with atorvastatin and fenofibrate. 3. Chest Pain, Unspecified The patient reports ongoing intermittent chest pain that is unchanged in character. A nuclear stress test four years ago was normal. Will continue to monitor, and the patient was advised to report any change in symptoms. 4. Dermatitis, Unspecified The patient describes a skin rash consistent with eczema or keratosis pilaris ( chicken skin ). Advised to use vqsu-rcu-rjiztsk hydrocortisone cream and maintain skin hydration with lotion. 5. Encounter For General Adult Medical Examination Without Abnormal Findings Patient received counseling on weight management, diet, and exercise. CKD management includes staying well-hydrated and avoiding NSAIDs. The importance of obstructive sleep apnea treatment was discussed. Vaccination status was reviewed; she is up-to-date on her pneumonia shot, her tetanus is due next year, and the two-dose shingles vaccine series was recommended. She declined the influenza vaccine. A rectal exam was offered and declined, but her Cologuard was noted to be negative as of 2022. Discussion Notes I discussed the patient's recent lab results, noting that while her bad cholesterol is well-controlled, her hemoglobin A1c has risen significantly to 9.7%. I explained the importance of bringing this number down and provided a lab requisition for a recheck in three months, with the understanding that we may need to adjust her medications if there is no improvement. We reviewed her complaint of chest pain, and I reassured her that since the symptom is chronic and unchanged, and her cardiac workup four years ago was negative, we will continue to monitor it for now. I instructed her to inform me of any changes. We also discussed her vaccinations, recommending the two-shot shingles vaccine, and noted her tetanus booster is due next year. I advised her on managing her skin rash with mnoo-yxo-qsswwqv cream and lotion and reinforced general health measures such as diet, exercise, and hydration. Patient Instructions - Continue all your current medications for diabetes, blood pressure, and cholesterol as prescribed. - Get your bloodwork done in three months. You will need to avoid eating for 8 hours before the test. You can have sips of water. - Continue to focus on a healthy diet and stay active with walking to help manage your weight and blood sugar. - For the rash on your skin, you can apply an uvkf-hrg-vqowpsx hydrocortisone cream and use lotion regularly to keep the skin moisturized. - You can get the two-part shingles vaccine at your pharmacy. It is recommended to prevent shingles. - Let the office know if your chest pain becomes worse, more frequent, or changes in any way. - Drink plenty of water and avoid taking NSAID pain relievers like ibuprofen or naproxen to protect your kidneys. 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
--- OUTSIDE RECORDS SUMMARY | 2025-05-09 13:21 | XMS_ITS | Clinical Summary ---
Author Organization [facility] Address [address] [place] [address] Phone Care Team Providers Care Manager Stylist Name Role Phone Diamond Velasquez MD Primary Care Provider [phone] Allergies Active Allergy Reactions Criticality Noted Date [...] Years Used Date Smoking Tobacco: Former Cigarettes 0 Q uit: 06/27/2015 Smokeless Tobacco: Former Comments [...] % PVNMA 05/14/2020 us Rtama Conversion LAB [id number] LICITED RESULTS Final Result PVNMA from Last 3 Months or Most Recently Relevant to Health Maintenance Insurance [facility] Medicaid Care Teams Manager Stylist Relationship Specialty Start Date End Date Diamond Velasquez MD [facility] [address] [place], [place] PCP - General 07/07/20
== END 2025-05-09 11:58 | disposition home or self-care (01) ==
LOC: HO.HMCH 10:50
PROVIDERS: PCP Internal Medicine; Visit Provider Internal Medicine
DX: Z00.00 Encounter for general adult medical examination without abnormal findings (principal); E11.65 Type 2 diabetes mellitus with hyperglycemia; Z79.4 Long term (current) use of insulin; I10 Essential (primary) hypertension; E78.5 Hyperlipidemia, unspecified; I73.9 Peripheral vascular disease, unspecified; E66.01 Morbid (severe) obesity due to excess calories; Z68.37 Body mass index [BMI] 37.0-37.9, adult; K21.9 Gastro-esophageal reflux disease without esophagitis; E11.22 Type 2 diabetes mellitus with diabetic chronic kidney disease; N18.30 Chronic kidney disease, stage 3 unspecified; G47.33 Obstructive sleep apnea (adult) (pediatric); Z13.9 Encounter for screening, unspecified

== ENCOUNTER → 2025-05-09 10:49 | Outpatient (BNVA) | payer OTHER, SELFPAY | PROVIDERS: PCP Internal Medicine; Visit Provider Internal Medicine | DX: Z00.00 Encounter for general adult medical examination without abnormal findings (principal); E66.01 Morbid (severe) obesity due to excess calories; E11.65 Type 2 diabetes mellitus with hyperglycemia; K21.9 Gastro-esophageal reflux disease without esophagitis; E11.22 Type 2 diabetes mellitus with diabetic chronic kidney disease; I12.9 Hypertensive chronic kidney disease with stage 1 through stage 4 chronic kidney disease, or unspecified chronic kidney disease; N18.30 Chronic kidney disease, stage 3 unspecified; G47.33 Obstructive sleep apnea (adult) (pediatric); E78.2 Mixed hyperlipidemia; R07.9 Chest pain, unspecified; L30.9 Dermatitis, unspecified; Z79.4 Long term (current) use of insulin; Z68.37 Body mass index [BMI] 37.0-37.9, adult | CPT/HCPCS: 83036; 99396 ==

== ENCOUNTER 2025-05-14 10:05 | Outpatient (AMB) | payer OTHER, SELFPAY ==
--- NOTE | 2025-05-14 10:24 | A.OFFVIS_ITS ---
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 States both legs are painful, was given muscle relaxers but states they did not help. Has been going on for years now. Left leg is worse. Patient also experiences cramping and tingling. 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 The pain originates in her back and radiates down the hip and posterior aspect of her legs, with the left leg being more painful than the right. She has not previously sought medical evaluation for her back pain. The patient has a history of diabetes for approximately 10 years. Her last hemoglobin A1c was 9.7, a significant increase from a prior value of 6.8. She has a history of smoking half a pack to a pack of cigarettes a day but quit 10 years ago. She now presents to us for vascular evaluation [facility] Medical History Preoperative cardiovascular examination Preop examination Leg pain Bilateral calf pain Precordial chest pain Abnormal stress test Chest pain Diabetes type 2, controlled Anxiety COVID-19 vaccination declined Hard of hearing Hearing loss in left ear Tear of meniscus of left knee Cataract Osteoarthritis, knee Interstitial cystitis CKD stage 3 due to type 2 diabetes mellitus GERD (gastroesophageal reflux disease) Bipolar disorder ROD (obstructive sleep apnea) Morbid obesity Dyslipidemia Hypertension Diabetic polyneuropathy associated with type 2 diabetes mellitus 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 mellitus senior care (current) use of insulin Surgical History Hx of cystoscopy History of esophagogastroduodenoscopy (EGD) History of cardiac catheterization (~10/2020) History of open reduction and internal fixation (ORIF) procedure History of arthroplasty of right knee History of tonsillectomy History of bladder suspension procedure Hx of tubal ligation History of hernia surgery Family History Father Brain tumor Mother CVA (cerebral vascular accident) Thyroid disease Hypertension Depression Daughter Substance abuse Maternal Grandfather CVA (cerebral vascular accident) Maternal Grandmother Diabetes Social History Household Members: None Housing: Apartment Are you a primary healthcare risk control consultant to a significant other at home: No Do you presently have visiting nurse or other home services: No Alcohol intake: never Patient Tobacco Use Status: Former Tobacco user Tobacco use type: Cigarette Years Smoked: 35, stopped 2014 e-Cigarette/Vaping Use: Never Used Second Hand Smoke Exposure: No Advance Directives Date on File: 04/01/20 service: No Current occupational status: unemployed Current occupation: left hand dominant Cognitive needs: No Hearing needs: Yes (hearing aides) Vision needs: No Review of Systems Const Reports as per HPI ENT Reports no additional complaints Card Denies chest pain, Denies chest pain at rest and Denies chest pain with activity Resp Denies chest congestion and Denies cough GI Reports no additional complaints Musc Details: pain over varicosities, aching of lower extremities, swelling, cramping, heaviness and tiredness, itching Denies abnormal gait Skin/Breast Reports pruritus and Denies wounds Neuro Reports no additional complaints and Denies abnormal gait Psych Denies no additional complaints Physical Exam Const General: cooperative, healthy appearing and comfortable Orientation/consciousness: oriented to person, oriented to place and oriented to time Neck Carotids: no bruits Chest Chest palpation & inspection: normal inspection of the chest and normal palpation of entire chest wall Resp Effort & Inspection: normal respiratory effort and able to speak in complete sentences Cardio Other: Bilateral palpable dorsalis pedis pulses Rate: regular rate Heart sounds: S1 normal heart sound present and S2 normal heart sound present Peripheral pulses: Peripheral pulses 2+ throughout GI Inspection: Yes normal to inspection Skin Other: +2 edema, CEAP Classification C4 - skin color changes Ep - Etiology Primary As - superficial veins P - reflux General skin exam: dry skin Neuro General: oriented to person, oriented to place and oriented to time Extrem Right lower extremity: full ROM, normal capillary refill and edema Left lower extremity: full ROM, normal capillary refill and edema Psych Mental Status: mental status grossly normal Assessment & Plan Assessment & Plan (1) Varicose veins of right lower extremity with inflammation: Code(s): I83.11 - Varicose veins of right lower extremity with inflammation Category: Medical Plan: I explained to the patient that her leg pain is likely coming from nerves in her back. I informed her that while I see some veins, I do not believe they are the main cause of her pain, but we will order a venous ultrasound to investigate them further. I recommended a referral to our pain management specialists for further evaluation of her back, which could involve X-rays and physical therapy. We also discussed her recent hemoglobin A1c of 9.7, and I advised her to be careful regarding her diabetes management. (2) Back pain: Code(s): M54.9 - Dorsalgia, unspecified Category: Medical Qualifiers: Back pain location: low back pain Back pain laterality: left Sciatica presence: with sciatica Sciatica laterality: sciatica of left side Plan: She does exhibit some clinical stigmata of sciatic pain radiating down the left side. Will refer to pain management for further workup and evaluation. Plan Patient was informed and verbally consented to the use of an ambient scribe for clinic note documentation during this visit. Orders: Orders US venous duplex LE BI Today I83.11 - Varicose veins of right lower extremity with inflammation Referrals Pain Management Referral M54.9 - Dorsalgia, unspecified Patient Instructions: - An ultrasound will be ordered to check the veins in your legs. - You will be referred to a pain management doctor to look into your back pain, as this may be the cause of your leg pain. - Please be careful with your diabetes, as your recent blood sugar test (hemoglobin A1c) was high. - Follow up with your primary care doctor, Dr. Velasquez, to discuss your diabetes. Coding Level of Care Code New Pt Level 4 (87886) Diagnoses Varicose veins of right lower extremity with inflammation I83.11 Back pain M54.9 Back pain location: low back pain Back pain laterality: left Sciatica presence: with sciatica Sciatica laterality: sciatica of left side
== END 2025-05-14 10:46 | disposition home or self-care (01) ==
LOC: HO.HVS 10:05
PROVIDERS: Visit Provider Surgery Vascular Surgery
DX: I83.11 Varicose veins of right lower extremity with inflammation (principal); M54.9 Dorsalgia, unspecified
CPT/HCPCS: 99204

== ENCOUNTER → 2025-05-14 10:05 | Outpatient (BNVA) | payer OTHER, SELFPAY | PROVIDERS: Visit Provider Surgery Vascular Surgery | DX: I83.11 Varicose veins of right lower extremity with inflammation (principal); M54.32 Sciatica, left side | CPT/HCPCS: 99202 ==

== ENCOUNTER 2025-06-07 10:00 | Outpatient (REF) | payer OTHER, SELFPAY ==
--- NOTE | ~2025-06-07 | US_ITS ---
EXAMINATION: US LOWER EXTREMITY VENOUS (REFLUX EXAM), BILATERAL CLINICAL INFORMATION: I 83 .11. Varices. COMPARISON: None. TECHNIQUE: Color flow triplex imaging and compression Doppler was performed to evaluate both the deep and the superficial systems bilaterally. To evaluate the superficial system, the examination was performed in the upright position. Color-flow Doppler ultrasound and compression ultrasound were utilized. In addition, maneuvers were utilized to demonstrate reflux. FINDINGS: 1. DEEP VENOUS ULTRASOUND OF THE RIGHT LOWER EXTREMITY: Common Femoral Vein: Compressible, normal respiratory variation and augmented flow. Femoral Vein: Compressible, normal color flow and augmentation. Popliteal Vein: Compressible, normal augmentation. Deep Reflux: There is no evidence of reflux in the deep system in either the common femoral vein, superficial femoral or the popliteal vein. There is no evidence of a Garcia's cyst. 2. SUPERFICIAL ULTRASOUND WITH DOPPLER OF RIGHT LOWER EXTREMITY: GREAT SAPHENOUS VEIN: Saphenofemoral Junction: 0.5 cm; Reflux: 0 ms Proximal Thigh: 0.4 cm; Reflux: 0 ms Mid Thigh: 0.3 cm; Reflux: 0 ms Distal Thigh: 0.3 cm; Reflux: 0 ms At Knee: 0.3 cm; Reflux: 0 ms Proximal Calf: 0.3 cm; Reflux: 0 ms Mid Calf: 0.1 cm; Reflux: 0 ms Distal Calf: 0.2 cm; Reflux: 0 ms DUPLICATED MEDIAL GREAT SAPHENOUS VEIN: Diameter: 0.4 cm. Reflux: NA DUPLICATED LATERAL GREAT SAPHENOUS VEIN: Diameter: None imaged Reflux: NA SMALL SAPHENOUS VEIN: Saphenopopliteal Junction: 0.5 cm; Reflux: 0 ms Proximal: 0.1 cm; Reflux: 0 ms Distal: 0.2 cm; Reflux: 0 ms VEIN OF GIACOMINI: Size: NA Reflux: NA PERFORATORS: Location: Small saphenous vein, mid segment. Great saphenous vein, mid calf. Femoral vein, mid thigh. Size: 0.1, 0.1 and 0.8 cm, respectively. Reflux: NA VARICOSITIES: Location: None imaged. Size: NA Reflux: NA 3. DEEP VENOUS ULTRASOUND OF THE LEFT LOWER EXTREMITY: Common Femoral Vein: Compressible, normal respiratory variation and augmented flow. Femoral Vein: Compressible, normal color flow and augmentation. Popliteal Vein: Compressible, normal augmentation. Deep Reflux: There is no evidence of reflux in the deep system in either the common femoral vein, superficial femoral or the popliteal vein. There is no evidence of a Garcia's cyst. 4. SUPERFICIAL ULTRASOUND WITH DOPPLER OF LEFT LOWER EXTREMITY: GREAT SAPHENOUS VEIN: Saphenofemoral Junction: 0.9 cm; Reflux: 0 ms Proximal Thigh: 0.7 cm; Reflux: 0 ms Mid Thigh: 0.3 cm; Reflux: 0 ms Distal Thigh: 0.3 cm; Reflux: 0 ms At Knee: 0.2 cm; Reflux: 0 ms Proximal Calf: 0.2 cm; Reflux: 516 ms Mid Calf: 0.2 cm; Reflux: 0 ms Distal Calf: 0.2 cm; Reflux: 0 ms DUPLICATED MEDIAL GREAT SAPHENOUS VEIN: Diameter: None imaged Reflux: NA DUPLICATED LATERAL GREAT SAPHENOUS VEIN: Diameter: None imaged. Reflux: NA SMALL SAPHENOUS VEIN: Saphenopopliteal Junction: 0.2 cm; Reflux: 0 ms Proximal: 0.1 cm; Reflux: 0 ms Distal: 0.1 cm; Reflux: 1276 ms VEIN OF GIACOMINI: Size: 0.3 cm. Reflux: NA PERFORATORS: Location: Femoral vein, mid thigh. Greater saphenous vein, mid calf. Size: 0.3 and 0.2 cm. Reflux: NA VARICOSITIES: Location: None Imaged Size: NA Reflux: NA US/US venous duplex LE BI IMPRESSION: Right: No venous insufficiency. Perforators without reflux. Left: Venous insufficiency, great saphenous vein below the knee. Venous insufficiency, small saphenous vein, distal calf. Perforators without reflux. Electronically signed by: Rolo Wang MD 06/07/2025 11:45 AM [facility]
--- NOTE | ~2025-06-07 | XR_ITS ---
EXAMINATION: XR HIP, LEFT CLINICAL INFORMATION: M25.552 - Pain in left hip COMPARISON: X-ray 04/26/2019 TECHNIQUE: Two views of the left hip. Pelvis 1 view FINDINGS: No fracture. Alignment is anatomic. Hip joint space is maintained. Calcific density in the lateral joint space, could reflect chondrocalcinosis. No suspicious bony lesion. Right hip joint space is maintained. SI joints and symphysis pubis are intact. No acute pelvic fractures identified. XR/XR hip LT w PEL1V IMPRESSION: No acute osseous findings. Calcification in the left hip joint laterally, could reflect chondrocalcinosis. Electronically signed by: Kishore Larry MD 06/07/2025 04:37 PM EST
--- NOTE | ~2025-06-07 | XR_ITS ---
EXAMINATION: XR LUMBOSACRAL SPINE CLINICAL INFORMATION: M47.817 - Spondylosis without myelopathy or radiculopathy, lumbosacral r... COMPARISON: None available. TECHNIQUE: 7 views of the lumbar spine, inclusive of flexion and extension views, were obtained. FINDINGS: Minimal leftward curvature on the frontal view. Mild L4-5 anterolisthesis. Vertebral body heights are preserved. No evidence of acute fracture. Mild L5-S1 disc space narrowing. Mild facet degeneration in the lower lumbar spine. No gross subluxation on the flexion or extension views. SI joints are symmetric. Paraspinal soft tissues appear unremarkable. No suspicious soft tissue calcifications. XR/XR lumbar spine 6V w bending IMPRESSION: No acute osseous findings. Mild L5-S1 disc degeneration. Electronically signed by: Kishore Larry MD 06/07/2025 03:58 PM EST
== END 2025-06-07 10:01 | disposition home or self-care (01) ==
LOC: HO.US 10:00
PROVIDERS: PCP Internal Medicine; Referring Provider Nurse Practitioner Family; Visit Provider Surgery Vascular Surgery
DX: I83.11 Varicose veins of right lower extremity with inflammation (principal); M25.552 Pain in left hip; M47.817 Spondylosis without myelopathy or radiculopathy, lumbosacral region; M54.16 Radiculopathy, lumbar region
CPT/HCPCS: 72114; 73502; 93970; 99202

== ENCOUNTER 2025-06-07 11:26 | Outpatient (REF) | payer OTHER, SELFPAY ==
--- OUTSIDE RECORDS SUMMARY | 2025-06-07 16:21 | XMS_ITS | Clinical Summary ---
Author Organization [facility] Address [address] [place] [address] Phone Care Team Providers Care Supervisor Intelligence Analyst Name Role Phone Diamond Velasquez MD Primary Care Provider [phone] Allergies Active Allergy Reactions Criticality Noted Date [...] % PVNMA 05/14/2020 us Rtama Conversion LAB [id number] LICITED RESULTS Final Result PVNMA from Last 3 Months or Most Recently Relevant to Health Maintenance Insurance [facility] Medicaid Care Teams Supervisor Intelligence Analyst Relationship Specialty Start Date End Date Diamond Velasquez MD [facility] [address] [place], [place] PCP - General 07/07/20
== END 2025-06-07 11:27 | disposition home or self-care (01) ==
LOC: HO.HAP 11:26
PROVIDERS: Visit Provider Internal Medicine
DX: Z46.1 Encounter for fitting and adjustment of hearing aid (principal)
CPT/HCPCS: V5266

== ENCOUNTER 2025-06-07 13:21 | Outpatient (AMB) | payer OTHER, SELFPAY ==
--- NOTE | 2025-06-07 13:30 | MHC.OFFVIS ---
Vital Signs 06/07/25 13:34 Height 5 ft 6 in Weight 236 lb 4 oz BMI 38.1 BP 120/71 Blood Pressure Location Rt brachial Position Sitting Pulse 71 Pulse Source Pulse Oximeter Pulse Oximetry (%) 98 Oxygen Delivery Method Room Air Intake Visit Reasons: Dorsalgia, unspecified Intake Note: Pain today 5/10 Assistant Front End Manager Required: No Accompanied by: Self / Same As Patient Allergies lurasidone (From LATUDA) Allergy (Severe, Verified 06/07/25 13:33) SEVERE HIGH BLOOD SUGARS HPI Comments Details: The patient is a 60 year old female presenting for evaluation of back and leg pain. The patient reports having back pain for about five years with a gradual onset. The pain radiates down to her hips and the back of her legs, with the left leg being more painful than the right. She describes the pain as pulsing, throbbing, pounding, cramping, and tight, rating it as 5/10 during the day and 8/10 in the evening. The pain interferes with her daily activities, walking, sleeping, lifting, and prolonged standing. Her medical history includes bilateral knee replacements, osteoarthritis in her knees and elbows, and a recent diagnosis of venous insufficiency in the left leg confirmed by a venous duplex study done today. She also has poorly controlled type 2 diabetes, associated diabetic polyneuropathy, and stage 3 chronic kidney disease. She has a psychiatric history of depression, bipolar disorder, and anxiety, for which she receives counseling. For pain management, she previously took muscle relaxers but discontinued them due to ineffectiveness. She has not had prior physical therapy for her back, though she did attend three sessions for knee pain in early 2022. She denies consumption of alcohol, quit smoking 10 years ago, and uses marijuana from a local dispensary. She engages in a home exercise program that includes riding a bike and using a stepper daily, unless her leg pain is severe. Pain Description - Onset and Duration: The patient has experienced this pain for about five years with a gradual onset, and it has been intermittent. - Location and Radiation: The pain is located in her back and radiates down to her hips and the back of her legs, with the left leg being more painful than the right. - Quality: The pain is described as pulsing, throbbing, pounding, cramping, and tight. - Severity: Pain is rated as 5/10 during the day and increases to 8/10 in the evening. - Interference with Function: The pain affects her daily activities, walking, sleeping, lifting, and prolonged standing and driving. Pain Management - Affect: The patient's pain affects her daily activities, including walking, sleeping, lifting, and prolonged standing. - Analgesia: Current pain level is 5/10 during the day and 8/10 in the evening. - Past Analgesics: She previously tried muscle relaxers which she found ineffective and no longer takes. - Adverse Effects: Muscle relaxers did not cause drowsiness but were ineffective. - Activities of Daily Living: She performs home exercises, including riding a bike and using a stepper, unless her leg pain is too severe. - Aberrant Drug Related Behaviors: The patient reports using marijuana obtained from a local dispensary. Oswestry Low Back Pain Disability Score=11 PFSH Medical History Preoperative cardiovascular examination Preop examination Leg pain Bilateral calf pain Precordial chest pain Abnormal stress test Chest pain Diabetes type 2, controlled Anxiety COVID-19 vaccination declined Hard of hearing Hearing loss in left ear Tear of meniscus of left knee Cataract Osteoarthritis, knee Interstitial cystitis CKD stage 3 due to type 2 diabetes mellitus GERD (gastroesophageal reflux disease) Bipolar disorder ROD (obstructive sleep apnea) Morbid obesity Dyslipidemia Hypertension Diabetic polyneuropathy associated with type 2 diabetes mellitus 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 Surgical History Hx of cystoscopy History of esophagogastroduodenoscopy (EGD) History of cardiac catheterization (~10/2020) History of open reduction and internal fixation (ORIF) procedure History of arthroplasty of right knee History of tonsillectomy History of bladder suspension procedure Hx of tubal ligation History of hernia surgery Family History Father Brain tumor Mother CVA (cerebral vascular accident) Thyroid disease Hypertension Depression Daughter Substance abuse Maternal Grandfather CVA (cerebral vascular accident) Maternal Grandmother Diabetes Social History Household Members: None Housing: Apartment Are you a primary adult live in caregiver to a significant other at home: No Do you presently have visiting nurse or other home services: No Alcohol intake: never Patient Tobacco Use Status: Former Tobacco user Tobacco use type: Cigarette Years Smoked: 35, stopped 2014 e-Cigarette/Vaping Use: Never Used Second Hand Smoke Exposure: No Advance Directives Date on File: 04/01/20 service: No Current occupational status: unemployed Current occupation: left hand dominant Cognitive needs: No Hearing needs: Yes (hearing aides) Vision needs: No Review of Systems Narrative - Musculoskeletal: Reports back pain radiating to the hips and legs, with the left leg being worse. - Neurological: Reports pain characterized as pulsing, throbbing, pounding, and cramping. Denies bladder or bowel dysfunction or saddle anesthesia. - Psychiatric: Reports receiving counseling for depression, bipolar disorder, and anxiety. Const All systems reviewed & are unremarkable except as noted in HPI and below Physical Exam Vital Signs: Last Vital Signs Pulse 71 06/07/25 13:34 BP 120/71 06/07/25 13:34 Pulse Ox 98 06/07/25 13:34 Oxygen Delivery Method Room Air 06/07/25 13:34 BMI result Body Mass Index 38.1 General: Appears afebrile. Alert and oriented. Mood and affect appropriate. Follows and participates in conversation appropriately. Respiratory effort is unlabored. No cough. Able to transition from sit to stand unassisted. Ambulates with bilaterally normal heel strike and toe off. General: Yes no CVA tenderness Back/Spine/Pelvis Other: The patient does not use a cane or any assistive devices. She demonstrates a stable gait without difficulty transitioning from sitting to standing. Lumbar spine extension produces tightness in the low back and moderate pain with bending down. Positive facet loading bilaterally. Straight leg raise is positive on the left, reproducing anterior thigh pain and cramps, and positive on the right, reproducing calf tenderness. 2+ pedal pulses bilaterally. Diminished patellar and achilles reflexes bilaterally. No groin pain with I/E hip rotations. Valsalva maneuver negative. Back: no CVA tenderness Cervical Spine: cervical ROM normal, cervical muscular tenderness, pain with cervical ROM and No Cervical spine tenderness Thoracic/Lumbar Spine: thoracic and lumbar spine normal to inspection, No Thoracic/lumbar spine scar(s), Lasegue's sign positive on the left and diffuse, pain with thoraco-lumbar ROM, thoraco-lumbar ROM limited, No thoracic spinal tenderness and lumbar spinal tenderness at L4 and at L5 Sacroiliac joints: bilaterally nontender Extrem General: Yes capillary refill normal, Yes no clubbing, cyanosis or edema and Yes calf tenderness (left) Results Reviewed Results Reviewed: XR HIP, LEFT 06/07/25 CLINICAL INFORMATION: M25.552 - Pain in left hip COMPARISON: X-ray 04/26/2019 TECHNIQUE: Two views of the left hip. Pelvis 1 view FINDINGS: No fracture. Alignment is anatomic. Hip joint space is maintained. Calcific density in the lateral joint space, could reflect chondrocalcinosis. No suspicious bony lesion. Right hip joint space is maintained. SI joints and symphysis pubis are intact. No acute pelvic fractures identified. IMPRESSION: No acute osseous findings. Calcification in the left hip joint laterally, could reflect chondrocalcinosis. XR LUMBOSACRAL SPINE 06/07/25 CLINICAL INFORMATION: M47.817 - Spondylosis without myelopathy or radiculopathy, lumbosacral COMPARISON: None available. TECHNIQUE: 7 views of the lumbar spine, inclusive of flexion and extension views, were obtained. FINDINGS: Minimal leftward curvature on the frontal view. Mild L4-5 anterolisthesis. Vertebral body heights are preserved. No evidence of acute fracture. Mild L5-S1 disc space narrowing. Mild facet degeneration in the lower lumbar spine. No gross subluxation on the flexion or extension views. SI joints are symmetric. Paraspinal soft tissues appear unremarkable. No suspicious soft tissue calcifications. IMPRESSION: No acute osseous findings. Mild L5-S1 disc degeneration. Assessment & Plan Assessment & Plan (1) Left hip pain: Code(s): M25.552 - Pain in left hip Category: Medical (2) Lumbosacral spondylosis: Code(s): M47.817 - Spondylosis without myelopathy or radiculopathy, lumbosacral region Category: Medical (3) Lumbar radiculopathy: Code(s): M54.16 - Radiculopathy, lumbar region Category: Medical (4) Low back pain: Code(s): M54.50 - Low back pain, unspecified Category: Medical Plan The approach to the patient's leg pain is to first investigate a potential lumbar spine etiology, as distinguished from the recently diagnosed venous insufficiency. Due to poorly controlled blood glucose, procedural options such as injections and temporary or permanent implantable treatments are currently limited. For radicular symptoms, we will proceed with lumbar spine MRI to assess for neural integrity and compression. For symptomatic relief of back pain, a prescription for lidocaine 5% patches will be sent to her pharmacy, with instructions to apply to the lower back for up to 12 hours a day. The patient is advised to continue her home exercise program, including riding a bike and using a stepper. The patient will need to follow up with her Vascular specialist to discuss the management of her left leg venous insufficiency. The importance of improving her blood sugar control was emphasized. All questions and concerns have been answered and patient agreed with the treatment plan. Follow up for MRI results and sooner as needed. Patient was informed and verbally consented to the use of an ambient scribe for clinic note documentation during this visit. Orders: Orders XR hip LT w PEL1V 06/07/25 M25.552 - Pain in left hip XR lumbar spine 6V w bending 06/07/25 M47.817 - Spondylosis without myelopathy or radiculopathy, lumbosacral region MR lumbar spine wo con Today M25.552 - Pain in left hip, M47.817 - Spondylosis without myelopathy or radiculopathy, lumbosacral region, M54.16 - Radiculopathy, lumbar region, M54.50 - Low back pain, unspecified Medications: New lidocaine 5% 1 patch topical DAILY 30 ea 0RF pain 30 days M47.817 - Spondylosis without myelopathy or radiculopathy, lumbosacral region, M54.50 - Low back pain, unspecified Coding Level of Care Code New Pt Level 4 (07947) Diagnoses Left hip pain M25.552 Lumbosacral spondylosis M47.817 Lumbar radiculopathy M54.16 Low back pain M54.50
[2025-06-07 13:34] VITALS: BP 120/71; PULSE 71; O2SAT 98; BMI 38.1
== END 2025-06-07 13:59 | disposition home or self-care (01) ==
LOC: HO.PMC 13:22
PROVIDERS: PCP Internal Medicine; Visit Provider Nurse Practitioner Family
DX: M25.552 Pain in left hip (principal); M47.817 Spondylosis without myelopathy or radiculopathy, lumbosacral region; M54.16 Radiculopathy, lumbar region; M54.50 Low back pain, unspecified
CPT/HCPCS: 99204